=== PATIENT | male | born 1970 | race Caucasian/White ===

== ENCOUNTER 2017-05-30 08:16 | Inpatient (IN) | payer SELFPAY ==
[2017-05-30 09:59] VITALS: BMI 31.3
--- NOTE | 2017-05-30 12:06 | HP ---
CIWA Score - CIWA Score Nausea/Vomitin Muscle Tremors: 4-Moderate,w/Arms Extend Anxiety: 3 Agitation: 0-Normal Activity Paroxysmal Sweats: 3 Orientation: 0-Oriented Tacttile Disturbances: 2-Mild Itch/Numbness/Burn Auditory Disturbances: 2-Mild Harshness/Frighten Visual Disturbances: 2-Mild Sensitivity Headache: 1-Very Mild CIWA-Ar Total Score: 22 Admission ROS BHS - HPI Chief Complaint: "I want to stay away from Alcohol." Patient here to Detox from Alcohol. Allergies/Adverse Reactions: Allergies Allergy/AdvReac Type Severity Reaction Status Date / Time No Known Allergies Allergy Verified 05/30/17 10:20 History of Present Illness: Pt. is a 46 YO male here to Detox from Alcohol. This is pt.'s first Detox admission at [facility]. Patient has had several previous Detox admissions at [facility]. Longest period of sobriety: approx. 1.5 years (2015 - 2016). Exam Limitations: No Limitations - Ebola screening Have you traveled outside of the country in the last 21 days: No Have you had contact with anyone from an Ebola affected area: No Have you been sick,other than usual withdrawal symptoms: No Do you have a fever: No - Review of Systems Constitutional: Chills, Diaphoresis, Fever, Loss of Appetite, Malaise, Night Sweats, Changes in sleep EENT: reports: Dental Problems (Needs to have 1 tooth replaced.) Respiratory: reports: Productive cough Cardiac: reports: Palpitations GI: reports: Diarrhea, Nausea, Poor Appetite, Vomiting, Indigestion, Abdominal cramping : reports: No Symptoms Reported Musculoskeletal: reports: No Symptoms Reported Integumentary: reports: No Symptoms Reported Neuro: reports: Headache, Numbness (Occasional in bilateral Lower Legs.), Tingling (Occasional in bilateral Lower Legs.), Tremors Endocrine: reports: No Symptoms Reported Hematology: reports: No Symptoms Reported Psychiatric: reports: Judgement Intact, Mood/Affect Appropiate, Orientated x3, Anxious Other Systems: Reviewed and Negative Patient History - Patient Medical History Hx Anemia: No Hx Asthma: No Hx Chronic Obstructive Pulmonary Disease (COPD): No Hx Cancer: No Hx Cardiac Disorders: No Hx Congestive Heart Failure: No Hx Hypertension: No Hx Hypercholesterolemia: No Hx Pacemaker: No HX Cerebrovascular Accident: No Hx Seizures: No Hx Dementia: No Hx Diabetes: No (Possibly Borderline in past, according to MD, uncertain currently.) Hx Gastrointestinal Disorders: Yes (stomach ulcer/acid reflux) Hx Liver Disease: No Hx Genitourinary Disorders: No Hx Sexually Transmitted Disorders: No Hx Renal Disease (ESRD): No Hx Thyroid Disease: No Hx Human Immunodeficiency Virus (HIV): No (Negative History; Cannot remember when last tested.) Hx Hepatitis C: No (Cannot Remember if ever tested in past.) Hx Depression: No Hx Suicide Attempt: No (PATIENT DENIES CURRENT SI / HI.) Hx Bipolar Disorder: No Hx Schizophrenia: No Other Medical History: DENIES. - Patient Surgical History Past Surgical History: No Hx Neurologic Surgery: No Hx Cataract Extraction: No Hx Cardiac Surgery: No Hx Lung Surgery: No Hx Breast Surgery: No Hx Breast Biopsy: No Hx Abdominal Surgery: No Hx Appendectomy: No Hx Cholecystectomy: No Hx Genitourinary Surgery: No Hx Section: No Hx Orthopedic Surgery: No Anesthesia Reaction: No - PPD History Previous Implant?: Yes Documented Results: Positive w/o proof Implanted On Prior R Admission?: No PPD to be Administered?: No - Reproductive History Patient is a Female of Child Bearing Age (11 -55 yrs old): No (PATIENT IS MALE.) - Smoking Cessation Smoking history: Former smoker Have you smoked in the past 12 months: Yes Aproximately how many cigarettes per day: 2 If you are a former smoker, when did you quit?: in 10/2016 Cigars Per Day: 0 Hx Chewing Tobacco Use: No Initiated information on smoking cessation: Yes 'Breaking Loose' booklet given: 05/30/17 (GIVEN ON UNIT.) - Substance & Tx. History Hx Alcohol Use: Yes Hx Substance Use: Yes Substance Use Type: Alcohol Hx Substance Use Treatment: Yes (Previous Detox admissions at [facility].) - Substances Abused Alcohol-whisky Route: Oral Frequency: Daily Amount used: 4 pts. Age of first use: 15 Date of Last Use: 05/29/17 Family Disease History - Family Disease History Family Disease History: Diabetes: Grandparent ([place].), Heart Disease: Grandparent Admission Physical Exam BHS - Vital Signs Vital Signs: Vital Signs - 24 hr 05/30/17 09:55 Temperature 99.0 F Pulse Rate 111 H Respiratory 18 Rate Blood Pressure 138/94 - Physical General Appearance: Yes: Nourished, Appropriately Dressed, Mild Distress, Tremorous, Anxious HEENTM: Yes: Hearing grossly Normal, Normocephalic, Normal Voice, DORA, Pharynx Normal Respiratory: Yes: Chest Non-Tender, Lungs Clear, No Respiratory Distress, No Accessory Muscle Use Neck: Yes: No masses,lesions,Nodules, Supple, Trachea in good position Breast: Yes: Breast Exam Deferred Cardiology: Yes: Regular Rhythm, Regular Rate, S1, S2 Abdominal: Yes: Normal Bowel Sounds, Non Tender, Soft, Protuberent Genitourinary: Yes: Within Normal Limits Back: Yes: Within Normal Limits Musculoskeletal: Yes: full range of Motion, Gait Steady Extremities: Yes: Normal Range of Motion, Non-Tender, Tremors Neurological: Yes: Fully Oriented, Alert, Normal Mood/Affect, Normal Response Integumentary: Yes: Normal Color, Dry, Warm Lymphatic: Yes: Within Normal Limits - Diagnostic (1) Alcohol dependence with uncomplicated withdrawal Current Visit: Yes Status: Acute (2) History of anxiety Current Visit: Yes Status: Chronic Cleared for Admission [facility] - Detox or Rehab [facility] Level of Care: Medically Managed Detox Regimen/Protocol: Librium [facility] Breath Alcohol Content Breath Alcohol Content: 0 Urine Drug Screen - Results Drug Screen Negative: No Urine Drug Screen Results: BZO-Benzodiazepines
[2017-05-30] MEDS ORDERED: ACETAMINOPHEN 325 MG TABLET (FP) PO PRN (12:37)
[2017-05-30] MEDS ORDERED: IBUPROFEN 400 MG TABLET (FP) PO PRN (12:37)
[2017-05-30] MEDS ORDERED: chlordiazePOXIDE HCL 25 MG CAPSULE PO PRN (12:37)
[2017-05-30] MEDS ORDERED: MENTHOL/PHENOL 1 EACH UD MM PRN (12:37)
[2017-05-30] MEDS ORDERED: diphenhydrAMINE HCL 50 MG CAPSULE PO PRN (12:37)
[2017-05-30] MEDS ORDERED: MAGNESIUM HYDROX 2400MG/30ML ORAL SUSPENSION 30 ML CUP PO PRN (12:37)
[2017-05-30] MEDS ORDERED: MAGNESIUM CITRATE 300 ML BOTTLE PO PRN (12:37)
[2017-05-30] MEDS ORDERED: hydrOXYzine PAMOATE 50 MG CAPSULE (FP) PO PRN (12:37)
[2017-05-30] MEDS ORDERED: P-EPHED 60MG/TRIPROLIDI 2.5MG TABLET PO PRN (12:37)
[2017-05-30] MEDS ORDERED: LOPERAMIDE HCL 2 MG CAPSULE PO PRN (12:37)
[2017-05-30] MEDS ORDERED: ONDANSETRON *ODT* 4 MG TABLET SL PRN (12:43)
[2017-05-30] MEDS ORDERED: chlordiazePOXIDE HCL 25 MG CAPSULE PO ONE (12:43)
[2017-05-30] MEDS: MAG HYDROX/AL HYDROX/SIMETH 30 ML UNIT-DOSE CUP PO PRN (16:41)
[2017-05-30 16:45] LABS: URINE APPEARANCE CLEAR; URINE BILIRUBIN NEGATIVE (NEGATIVE); URINE BLOOD NEGATIVE (NEGATIVE); URINE COLOR AMBER; URINE GLUCOSE (UA) 1+ (NEGATIVE); URINE KETONE 1+ (NEGATIVE); URINE LEUK ESTERASE NEGATIVE (NEGATIVE); URINE NITRITE NEGATIVE (NEGATIVE); URINE PROTEIN 1+ (NEGATIVE); URINE UROBILINOGEN 4.0 E.U/dl mg/dL (0.2-1.0)
--- NOTE | 2017-05-30 17:01 | EKG ---
Test Reason : Blood Pressure : / mmHG Vent. Rate : 105 BPM Atrial Rate : 105 BPM P-R Int : 132 ms QRS Dur : 092 ms QT Int : 328 ms P-R-T Axes : 060 -11 004 degrees QTc Int : 433 ms SINUS TACHYCARDIA OTHERWISE NORMAL ECG NO PREVIOUS ECGS AVAILABLE [facility] Confirmed by MARCY MOROCHO MD ([id number] on 05/30/2017 5:01:18 PM Referred By: Antolin Kim Confirmed By:MARCY MOROCHO MD
[2017-05-30] MEDS: chlordiazePOXIDE HCL 25 MG CAPSULE PO SCH ×2 (17:09→22:31)
--- NOTE | 2017-05-30 17:44 | CONSULT ---
[facility] Psychiatric Consult - Data Date of interview: 05/30/17 Admission source: [facility] Identifying data: First admission to [facility] for this 46 y/o [place]-born male seeking detox treatment on for alcohol dependence.Patient is single ,a father of one,domiciled and employed. Substance Abuse History: Patient admits to abusing alcohol since age 15 ( 2-4 pints of scotch daily + 2-15 beers on a daily basis).Smokes 2-3 cigarettes/day. Medical History: GERD. Psychiatric History: Patient denies. Physical/Sexual Abuse/Trauma History: Patient denies. Additional Comment: Urine Drug Screen Results: positive for benzodiazepines. Mental Status Exam - Mental Status Exam Alert and Oriented to: Time, Place, Person Cognitive Function: Good Patient Appearance: Well Groomed Mood: Anxious, Apprehensive Affect: Mood Congruent Patient Behavior: Fatigued, Appropriate, Cooperative Speech Pattern: Clear, Appropriate (in maltese.Speaks little estonian.) Voice Loudness: Normal Thought Process: Intact, Goal Oriented Thought Disorder: Not Present Hallucinations: Denies Suicidal Ideation: Denies Homicidal Ideation: Denies Insight/Judgement: Poor Sleep: Poorly, Difficulty falling asleep (requests ambien) Appetite: Good Muscle strength/Tone: Normal Gait/Station: Normal Psychiatric Findings - Problem List ([place] 1, 2,3) (1) Alcohol dependence with uncomplicated withdrawal Current Visit: Yes Status: Acute (2) Insomnia Current Visit: Yes Status: Acute - Initial Treatment Plan Initial Treatment Plan: Psychoeducation initiated.Detoxification in progress.[facility] report reviewed.Ambien 10 mg po hs.Orderd.Patient is made aware of potential for parasomnias.He agrees to follow this plan of care.Observation.
[2017-05-30 18:51] LABS: HIV 1 & 2 AB NEGATIVE; HIV 1 AGp24 NEGATIVE
[2017-05-30 19:44] LABS: GRANULAR CASTS 3 /lpf; URINE MUCUS RARE; URINE RBC 2 /hpf (0-3); URINE WBC 3 /hpf (3-5)
[2017-05-30] MEDS: THIAMINE HCL 100 MG TABLET (FP) PO SCH (22:31)
[2017-05-30] MEDS: ZOLPIDEM TARTRATE 10 MG TABLET (PARK CARE ONLY) PO PRN (22:31)
[2017-05-31] MEDS: chlordiazePOXIDE HCL 25 MG CAPSULE PO SCH ×4 (05:15→22:31)
[2017-05-31] MEDS: guaiFENesin/D-METHORPHAN HB 10 ML UNIT-DOSE CUPS PO PRN (05:16)
[2017-05-31] MEDS: PRENATAL VITAMINS W/ FOLIC ACID TABLET (FP) PO SCH (10:16)
[2017-05-31] MEDS: PANTOPRAZOLE 40 MG TABLET (FP) PO SCH (10:17)
[2017-05-31 10:27] LABS: MCH 32.1 pg (25.7-33.7); MCHC 34.3 g/dl (32.0-35.9); MEAN CELL VOLUME 93.5 fl (80-96); MEAN PLT VOLUME 8.7 fl (7.5-11.1); PLATELET COUNT 158 K/MM3 (134-434); RDW 14.4 % (11.9-15.9); WHITE BLOOD COUNT 6.7 K/mm3 (4.0-10.0)
[2017-05-31 10:31] LABS: CALCIUM 9.3 mg/dL (8.5-10.1)
[2017-05-31 10:37] LABS: ALBUMIN 3.9 g/dl (3.4-5.0); ALK PHOS 185 U/L (45-117); ANION GAP 11 (8-16); BILIRUBIN,TOTAL 2.3 mg/dL (0.2-1.0); CO2 26 mmol/L (21-32); GLUCOSE,RANDOM 172 mg/dL (74-106); SGOT/AST 198 U/L (15-37); SGPT/ALT 180 U/L (12-78); TOT PROT 7.9 g/dl (6.4-8.2); URIC ACID 7.9 mg/dL (2.6-7.2)
--- NOTE | 2017-05-31 11:13 | EKG ---
Test Reason : Blood Pressure : / mmHG Vent. Rate : 100 BPM Atrial Rate : 100 BPM P-R Int : 134 ms QRS Dur : 094 ms QT Int : 346 ms P-R-T Axes : 066 -10 013 degrees QTc Int : 446 ms NORMAL SINUS RHYTHM NORMAL ECG WHEN COMPARED WITH ECG OF 30-MAY-2017 13:44, NO SIGNIFICANT CHANGE WAS FOUND Confirmed by DARLENE ELLIS MD ([id number]) on 05/31/2017 11:12:50 AM Referred By: Antolin Kim Confirmed By:DARLENE ELLIS MD
--- NOTE | 2017-05-31 11:38 | PN ---
S CIWA - CIWA Score Nausea/Vomitin Muscle Tremors: None Anxiety: 4-Mod. Anxious/Guarded Agitation: 1-Slight > Activity Paroxysmal Sweats: 3 Orientation: 0-Oriented Tacttile Disturbances: 3-Moderate Itch/Numb/Burn Auditory Disturbances: 1-Very Mild Visual Disturbances: 2-Mild Sensitivity Headache: 3-Moderate CIWA-Ar Total Score: 22 BHS Progress Note (SOAP) Subjective: Sweating, Vomiting, Diarrhea, Anxious, Interrupted sleep, H/A. Objective: PT. A & O X 3, OBSERVED AMBULATING ON UNIT. NO ACUTE DISTRESS. PATIENT REPORTS HISTORY OF GOUT (HAS NO TAKEN ANY MEDICATION FOR IT FOR SOME TIME NOW) AND THAT HE IS BEGINNING TO FEEL DISCOMFORT IN LEFT FOOT. 05/31/17 11:34 Vital Signs Temperature 96.8 F L 05/31/17 09:54 Pulse Rate 119 H 05/31/17 09:54 Respiratory Rate 18 05/31/17 09:54 Blood Pressure 139/94 05/31/17 09:54 O2 Sat by Pulse Oximetry (%) Laboratory Tests 05/30/17 05/30/17 05/30/17 12:10 13:20 14:48 WBC RBC Hgb Hct MCV MCH MCHC RDW Plt Count MPV Sodium Potassium Chloride Carbon Dioxide Anion Gap BUN Creatinine Creat Clearance w eGFR POC Glucometer Random Glucose Uric Acid Calcium Total Bilirubin AST ALT Alkaline Phosphatase Total Protein Albumin Urine Color Kayla Urine Appearance Clear Urine pH 6.0 Ur Specific [place] 1.020 Urine Protein 1+ H Urine Glucose (UA) 1+ H Urine Ketones 1+ H Urine Blood Negative Urine Nitrite Negative Urine Bilirubin Negative Urine Urobilinogen 4.0 e.u/dl Ur Leukocyte Esterase Negative Urine RBC 2 Urine WBC 3 Ur Epithelial Cells Rare Granular Casts 3 Urine Mucus Rare Hepatitis C Antibody 0.2 HIV 1&2 Antibody Screen Negative HIV P24 Antigen Negative 05/31/17 05/31/17 05/31/17 05:15 06:00 06:00 WBC 6.7 RBC 5.11 Hgb 16.4 Hct 47.7 MCV 93.5 MCH 32.1 MCHC 34.3 RDW 14.4 Plt Count 158 MPV 8.7 Sodium 134 L Potassium 4.0 Chloride 97 L Carbon Dioxide 26 Anion Gap 11 BUN 12 Creatinine 1.0 Creat Clearance w eGFR > 60 POC Glucometer 156 Random Glucose 172 H Uric Acid 7.9 H Calcium 9.3 Total Bilirubin 2.3 H AST 198 H ALT 180 H Alkaline Phosphatase 185 H Total Protein 7.9 Albumin 3.9 Urine Color Urine Appearance Urine pH Ur Specific [place] Urine Protein Urine Glucose (UA) Urine Ketones Urine Blood Urine Nitrite Urine Bilirubin Urine Urobilinogen Ur Leukocyte Esterase Urine RBC Urine WBC Ur Epithelial Cells Granular Casts Urine Mucus Hepatitis C Antibody HIV 1&2 Antibody Screen HIV P24 Antigen LABS NOTED. 05/31/17 11:40 05/31/17 15:38 Assessment: 05/31/17 11:38 WITHDRAWAL SYMPTOMS. Plan: CONTINUE DETOX. URIC ACID ORDERED FOR HISTORY OF GOUT AND FOOT PAIN. PRN IBUPROFEN FOR FOOT PAIN. BGM BIDAC AND HGB A1C ORDERED FOR ELEVATED BGM ACBK EARLIER THIS AM. HEPATIC FUNCTION PANEL ON 06/02/2017 FOR ELEVATED ADMISSION LIVER ENZYME VALUES.
[2017-05-31] MEDS ORDERED: cloNIDine HCL 0.1 MG TABLET PO ONE (14:48)
[2017-05-31] MEDS ORDERED: COLCHICINE 0.6 MG TABLET (FP) PO ONE (15:25)
--- NOTE | 2017-05-31 15:39 | PN ---
S Progress Note Note: Uric Acid level (7.9) noted. Patient unable to recall name of Gout medication that he took in past. START Colchicine, 1.2 mg PO X 1 Now, then 0.6 mg PO daily starting tomorrow. Clonidine, 0.1 mg PO X 1 ordered for elevated BP and for detox symptoms. Ginette Wills DISCHARGE RN
[2017-05-31] MEDS: MAG HYDROX/AL HYDROX/SIMETH 30 ML UNIT-DOSE CUP PO PRN ×2 (15:44→22:34)
[2017-05-31] MEDS: THIAMINE HCL 100 MG TABLET (FP) PO SCH (22:31)
[2017-05-31] MEDS: ZOLPIDEM TARTRATE 10 MG TABLET (PARK CARE ONLY) PO PRN (22:31)
[2017-06-01] MEDS: chlordiazePOXIDE HCL 25 MG CAPSULE PO SCH ×2 (05:53→10:45)
[2017-06-01] MEDS: PRENATAL VITAMINS W/ FOLIC ACID TABLET (FP) PO SCH (10:44)
[2017-06-01] MEDS: COLCHICINE 0.6 MG TABLET (FP) PO SCH (10:44)
[2017-06-01] MEDS: PANTOPRAZOLE 40 MG TABLET (FP) PO SCH (10:44)
[2017-06-01] MEDS: TETRAHYDROZOLINE HCL 1 DROP DROPS OU PRN ×3 (12:00→22:36)
--- NOTE | 2017-06-01 12:35 | PN ---
S CIWA - CIWA Score Nausea/Vomitin Muscle Tremors: 3 Anxiety: 3 Agitation: 2 Paroxysmal Sweats: 3 Orientation: 0-Oriented Tacttile Disturbances: 2-Mild Itch/Numbness/Burn Auditory Disturbances: 0-None Visual Disturbances: 0-None Headache: 2-Mild CIWA-Ar Total Score: 17 [facility] Progress Note (SOAP) Subjective: Sweating, Diarrhea, Stomach Cramping, H/A, Body Aches, Tremors, Interrupted sleep. Objective: PT. A & O X 3, OBSERVED AMBULATING ON UNIT. NO ACUTE DISTRESS. PT. DENIES CHEST PAIN. 06/01/17 12:31 Vital Signs Temperature 99.1 F 06/01/17 09:18 Pulse Rate 104 H 06/01/17 09:18 Respiratory Rate 18 06/01/17 09:18 Blood Pressure 128/91 06/01/17 09:18 O2 Sat by Pulse Oximetry (%) Laboratory Tests 05/30/17 05/30/17 05/30/17 12:10 13:20 14:48 WBC RBC Hgb Hct MCV MCH MCHC RDW Plt Count MPV Sodium Potassium Chloride Carbon Dioxide Anion Gap BUN Creatinine Creat Clearance w eGFR POC Glucometer Random Glucose Hemoglobin A1c % Uric Acid Calcium Total Bilirubin AST ALT Alkaline Phosphatase Total Protein Albumin Urine Color Kayla Urine Appearance Clear Urine pH 6.0 Ur Specific [place] 1.020 Urine Protein 1+ H Urine Glucose (UA) 1+ H Urine Ketones 1+ H Urine Blood Negative Urine Nitrite Negative Urine Bilirubin Negative Urine Urobilinogen 4.0 e.u/dl Ur Leukocyte Esterase Negative Urine RBC 2 Urine WBC 3 Ur Epithelial Cells Rare Granular Casts 3 Urine Mucus Rare RPR Titer Hepatitis C Antibody 0.2 HIV 1&2 Antibody Screen Negative HIV P24 Antigen Negative 05/31/17 05/31/17 05/31/17 05:15 06:00 06:00 WBC 6.7 RBC 5.11 Hgb 16.4 Hct 47.7 MCV 93.5 MCH 32.1 MCHC 34.3 RDW 14.4 Plt Count 158 MPV 8.7 Sodium 134 L Potassium 4.0 Chloride 97 L Carbon Dioxide 26 Anion Gap 11 BUN 12 Creatinine 1.0 Creat Clearance w eGFR > 60 POC Glucometer 156 Random Glucose 172 H Hemoglobin A1c % Uric Acid 7.9 H Calcium 9.3 Total Bilirubin 2.3 H AST 198 H ALT 180 H Alkaline Phosphatase 185 H Total Protein 7.9 Albumin 3.9 Urine Color Urine Appearance Urine pH Ur Specific [place] Urine Protein Urine Glucose (UA) Urine Ketones Urine Blood Urine Nitrite Urine Bilirubin Urine Urobilinogen Ur Leukocyte Esterase Urine RBC Urine WBC Ur Epithelial Cells Granular Casts Urine Mucus RPR Titer Hepatitis C Antibody HIV 1&2 Antibody Screen HIV P24 Antigen 05/31/17 05/31/17 06/01/17 06:00 16:30 05:53 WBC RBC Hgb Hct MCV MCH MCHC RDW Plt Count MPV Sodium Potassium Chloride Carbon Dioxide Anion Gap BUN Creatinine Creat Clearance w eGFR POC Glucometer 179 169 Random Glucose Hemoglobin A1c % Uric Acid Calcium Total Bilirubin AST ALT Alkaline Phosphatase Total Protein Albumin Urine Color Urine Appearance Urine pH Ur Specific [place] Urine Protein Urine Glucose (UA) Urine Ketones Urine Blood Urine Nitrite Urine Bilirubin Urine Urobilinogen Ur Leukocyte Esterase Urine RBC Urine WBC Ur Epithelial Cells Granular Casts Urine Mucus RPR Titer Nonreactive Hepatitis C Antibody HIV 1&2 Antibody Screen HIV P24 Antigen 06/01/17 06/01/17 06:30 06:30 WBC RBC Hgb Hct MCV MCH MCHC RDW Plt Count MPV Sodium Potassium Chloride Carbon Dioxide Anion Gap BUN Creatinine Creat Clearance w eGFR POC Glucometer Random Glucose Hemoglobin A1c % 6.7 H Uric Acid 7.7 H Calcium Total Bilirubin AST ALT Alkaline Phosphatase Total Protein Albumin Urine Color Urine Appearance Urine pH Ur Specific [place] Urine Protein Urine Glucose (UA) Urine Ketones Urine Blood Urine Nitrite Urine Bilirubin Urine Urobilinogen Ur Leukocyte Esterase Urine RBC Urine WBC Ur Epithelial Cells Granular Casts Urine Mucus RPR Titer Hepatitis C Antibody HIV 1&2 Antibody Screen HIV P24 Antigen LABS NOTED. Assessment: 06/01/17 12:32 WITHDRAWAL SYMPTOMS. Plan: CONTINUE DETOX. START REGULAR INSULIN SLIDING SCALE DUE TO ELEVATED HGB A1C AND BGM'S.
[2017-06-01] MEDS: INSULIN SLIDING SCALE (NOVOLOG) 1 VIAL SQ SCH (16:36)
[2017-06-01] MEDS: chlordiazePOXIDE 5 MG CAPSULE PO SCH ×2 (17:16→22:35)
[2017-06-01] MEDS: ZOLPIDEM TARTRATE 10 MG TABLET (PARK CARE ONLY) PO PRN (22:35)
[2017-06-01] MEDS: THIAMINE HCL 100 MG TABLET (FP) PO SCH (22:35)
[2017-06-02] MEDS: chlordiazePOXIDE 5 MG CAPSULE PO SCH ×2 (05:53→10:46)
[2017-06-02] MEDS: TETRAHYDROZOLINE HCL 1 DROP DROPS OU PRN ×4 (05:54→22:31)
[2017-06-02] MEDS: INSULIN SLIDING SCALE (NOVOLOG) 1 VIAL SQ SCH (08:16)
[2017-06-02] MEDS: PANTOPRAZOLE 40 MG TABLET (FP) PO SCH (10:46)
[2017-06-02] MEDS: COLCHICINE 0.6 MG TABLET (FP) PO SCH (10:46)
[2017-06-02] MEDS: PRENATAL VITAMINS W/ FOLIC ACID TABLET (FP) PO SCH (10:46)
[2017-06-02 10:58] LABS: ALBUMIN 3.7 g/dl (3.4-5.0); BILIRUBIN,DIRECT 0.4 mg/dL (0.0-0.2); BILIRUBIN,TOTAL 0.9 mg/dL (0.2-1.0); TOT PROT 7.5 g/dl (6.4-8.2)
[2017-06-02] MEDS: MAG HYDROX/AL HYDROX/SIMETH 30 ML UNIT-DOSE CUP PO PRN (11:38)
--- NOTE | 2017-06-02 13:15 | PN ---
BHS Progress Note (SOAP) Subjective: Stomach Cramping, Sweating, H/A. Objective: PT. A & O X 3, OBSERVED AMBULATING ON UNIT. NO ACUTE DISTRESS. PT. DENIES CHEST PAIN. 06/02/17 13:12 Vital Signs Temperature 98.9 F 06/02/17 09:18 Pulse Rate 80 06/02/17 09:18 Respiratory Rate 18 06/02/17 09:18 Blood Pressure 133/91 06/02/17 09:18 O2 Sat by Pulse Oximetry (%) Laboratory Tests 05/30/17 05/30/17 05/30/17 12:10 13:20 14:48 WBC RBC Hgb Hct MCV MCH MCHC RDW Plt Count MPV Sodium Potassium Chloride Carbon Dioxide Anion Gap BUN Creatinine Creat Clearance w eGFR POC Glucometer Random Glucose Hemoglobin A1c % Uric Acid Calcium Total Bilirubin Direct Bilirubin AST ALT Alkaline Phosphatase Total Protein Albumin Urine Color Kayla Urine Appearance Clear Urine pH 6.0 Ur Specific [place] 1.020 Urine Protein 1+ H Urine Glucose (UA) 1+ H Urine Ketones 1+ H Urine Blood Negative Urine Nitrite Negative Urine Bilirubin Negative Urine Urobilinogen 4.0 e.u/dl Ur Leukocyte Esterase Negative Urine RBC 2 Urine WBC 3 Ur Epithelial Cells Rare Granular Casts 3 Urine Mucus Rare RPR Titer Hepatitis C Antibody 0.2 HIV 1&2 Antibody Screen Negative HIV P24 Antigen Negative 05/31/17 05/31/17 05/31/17 05:15 06:00 06:00 WBC 6.7 RBC 5.11 Hgb 16.4 Hct 47.7 MCV 93.5 MCH 32.1 MCHC 34.3 RDW 14.4 Plt Count 158 MPV 8.7 Sodium 134 L Potassium 4.0 Chloride 97 L Carbon Dioxide 26 Anion Gap 11 BUN 12 Creatinine 1.0 Creat Clearance w eGFR > 60 POC Glucometer 156 Random Glucose 172 H Hemoglobin A1c % Uric Acid 7.9 H Calcium 9.3 Total Bilirubin 2.3 H Direct Bilirubin AST 198 H ALT 180 H Alkaline Phosphatase 185 H Total Protein 7.9 Albumin 3.9 Urine Color Urine Appearance Urine pH Ur Specific [place] Urine Protein Urine Glucose (UA) Urine Ketones Urine Blood Urine Nitrite Urine Bilirubin Urine Urobilinogen Ur Leukocyte Esterase Urine RBC Urine WBC Ur Epithelial Cells Granular Casts Urine Mucus RPR Titer Hepatitis C Antibody HIV 1&2 Antibody Screen HIV P24 Antigen 05/31/17 05/31/1717 06:00 16:30 05:53 WBC RBC Hgb Hct MCV MCH MCHC RDW Plt Count MPV Sodium Potassium Chloride Carbon Dioxide Anion Gap BUN Creatinine Creat Clearance w eGFR POC Glucometer 179 169 Random Glucose Hemoglobin A1c % Uric Acid Calcium Total Bilirubin Direct Bilirubin AST ALT Alkaline Phosphatase Total Protein Albumin Urine Color Urine Appearance Urine pH Ur Specific [place] Urine Protein Urine Glucose (UA) Urine Ketones Urine Blood Urine Nitrite Urine Bilirubin Urine Urobilinogen Ur Leukocyte Esterase Urine RBC Urine WBC Ur Epithelial Cells Granular Casts Urine Mucus RPR Titer Nonreactive Hepatitis C Antibody HIV 1&2 Antibody Screen HIV P24 Antigen 06/01/17 06/01/17 06/01/17 06:30 06:30 16:14 WBC RBC Hgb Hct MCV MCH MCHC RDW Plt Count MPV Sodium Potassium Chloride Carbon Dioxide Anion Gap BUN Creatinine Creat Clearance w eGFR POC Glucometer 150 Random Glucose Hemoglobin A1c % 6.7 H Uric Acid 7.7 H Calcium Total Bilirubin Direct Bilirubin AST ALT Alkaline Phosphatase Total Protein Albumin Urine Color Urine Appearance Urine pH Ur Specific [place] Urine Protein Urine Glucose (UA) Urine Ketones Urine Blood Urine Nitrite Urine Bilirubin Urine Urobilinogen Ur Leukocyte Esterase Urine RBC Urine WBC Ur Epithelial Cells Granular Casts Urine Mucus RPR Titer Hepatitis C Antibody HIV 1&2 Antibody Screen HIV P24 Antigen 06/02/17 06/02/17 05:52 06:30 WBC RBC Hgb Hct MCV MCH MCHC RDW Plt Count MPV Sodium Potassium Chloride Carbon Dioxide Anion Gap BUN Creatinine Creat Clearance w eGFR POC Glucometer 161 Random Glucose Hemoglobin A1c % Uric Acid Calcium Total Bilirubin 0.9 D Direct Bilirubin 0.4 H AST 115 H D ALT 133 H D Alkaline Phosphatase 159 H Total Protein 7.5 Albumin 3.7 Urine Color Urine Appearance Urine pH Ur Specific [place] Urine Protein Urine Glucose (UA) Urine Ketones Urine Blood Urine Nitrite Urine Bilirubin Urine Urobilinogen Ur Leukocyte Esterase Urine RBC Urine WBC Ur Epithelial Cells Granular Casts Urine Mucus RPR Titer Hepatitis C Antibody HIV 1&2 Antibody Screen HIV P24 Antigen LABS NOTED. RESULTS OF HEPATIC FUNCTION PANEL DRAWN EARLIER TODAY NOTED. 06/02/17 13:12 06/02/17 13:14 Assessment: 06/02/17 13:13 WITHDRAWAL SYMPTOMS. Plan: CONTINUE DETOX.
[2017-06-02] MEDS: chlordiazePOXIDE HCL 10 MG CAPSULE PO SCH ×2 (17:30→22:31)
[2017-06-02] MEDS ORDERED: ZOLPIDEM TARTRATE 10 MG TABLET (PARK CARE ONLY) PO PRN (18:24)
[2017-06-02] MEDS: THIAMINE HCL 100 MG TABLET (FP) PO SCH (22:31)
[2017-06-02] MEDS: guaiFENesin/D-METHORPHAN HB 10 ML UNIT-DOSE CUPS PO PRN (22:52)
[2017-06-03] MEDS: chlordiazePOXIDE HCL 10 MG CAPSULE PO SCH (05:12)
[2017-06-03] MEDS: guaiFENesin/D-METHORPHAN HB 10 ML UNIT-DOSE CUPS PO PRN (05:34)
[2017-06-03] MEDS: TETRAHYDROZOLINE HCL 1 DROP DROPS OU PRN (05:34)
[2017-06-03 06:23] VITALS: BP 143/93; PULSE 95; TEMP 96.7
--- NOTE | 2017-06-03 22:16 | DS ---
[facility] Detox Discharge Summary Admission Date: 05/30/17 Discharge Date: 06/03/17 - History Present History: Alcohol Dependence Additional Comments: PATIENT ELECTING TO GO HOME. WILL RETURN TO PREVIOUS OUTPATIENT AA SUPPORT GROUP. PATIENT REPORTS THAT HE CURRENTLY HAS A PRIMARY CARE MEDICAL PROVIDER. PATIENT ADVISED TO FOLLOW-UP WITH CUSTOMER SERVICE REPRESENTATIVE AFTER DISCHARGE FROM DETOX FOR MEDICAL ASSESSMENT AND FOR HISTORY OF GOUT, ELEVATED BGM READINGS, AND FOR ELEVATED HGB A1C AND LIVER ENZYME LEVELS AHILE ADMITTED FOR DETOX. Pertinent Past History: Borderline DM, Gout, Acid Reflux Of Stomach, Insomnia. - Physical Exam Results Vital Signs: Vital Signs Temperature 96.7 F L 06/03/17 06:22 Pulse Rate 95 H 06/03/17 06:22 Respiratory Rate 18 06/03/17 06:22 Blood Pressure 143/93 06/03/17 06:22 O2 Sat by Pulse Oximetry (%) Pertinent Admission Physical Exam Findings: WITHDRAWAL SYMPTOMS. Laboratory Tests 05/30/17 05/30/17 05/30/17 12:10 13:20 14:48 WBC RBC Hgb Hct MCV MCH MCHC RDW Plt Count MPV Sodium Potassium Chloride Carbon Dioxide Anion Gap BUN Creatinine Creat Clearance w eGFR POC Glucometer Random Glucose Hemoglobin A1c % Uric Acid Calcium Total Bilirubin Direct Bilirubin AST ALT Alkaline Phosphatase Total Protein Albumin Urine Color Kayla Urine Appearance Clear Urine pH 6.0 Ur Specific [place] 1.020 Urine Protein 1+ H Urine Glucose (UA) 1+ H Urine Ketones 1+ H Urine Blood Negative Urine Nitrite Negative Urine Bilirubin Negative Urine Urobilinogen 4.0 e.u/dl Ur Leukocyte Esterase Negative Urine RBC 2 Urine WBC 3 Ur Epithelial Cells Rare Granular Casts 3 Urine Mucus Rare RPR Titer Hepatitis C Antibody 0.2 HIV 1&2 Antibody Screen Negative HIV P24 Antigen Negative 05/31/17 05/31/17 05/31/17 05:15 06:00 06:00 WBC 6.7 RBC 5.11 Hgb 16.4 Hct 47.7 MCV 93.5 MCH 32.1 MCHC 34.3 RDW 14.4 Plt Count 158 MPV 8.7 Sodium 134 L Potassium 4.0 Chloride 97 L Carbon Dioxide 26 Anion Gap 11 BUN 12 Creatinine 1.0 Creat Clearance w eGFR > 60 POC Glucometer 156 Random Glucose 172 H Hemoglobin A1c % Uric Acid 7.9 H Calcium 9.3 Total Bilirubin 2.3 H Direct Bilirubin AST 198 H ALT 180 H Alkaline Phosphatase 185 H Total Protein 7.9 Albumin 3.9 Urine Color Urine Appearance Urine pH Ur Specific [place] Urine Protein Urine Glucose (UA) Urine Ketones Urine Blood Urine Nitrite Urine Bilirubin Urine Urobilinogen Ur Leukocyte Esterase Urine RBC Urine WBC Ur Epithelial Cells Granular Casts Urine Mucus RPR Titer Hepatitis C Antibody HIV 1&2 Antibody Screen HIV P24 Antigen 05/31/17 05/31/17 06/01/17 06:00 16:30 05:53 WBC RBC Hgb Hct MCV MCH MCHC RDW Plt Count MPV Sodium Potassium Chloride Carbon Dioxide Anion Gap BUN Creatinine Creat Clearance w eGFR POC Glucometer 179 169 Random Glucose Hemoglobin A1c % Uric Acid Calcium Total Bilirubin Direct Bilirubin AST ALT Alkaline Phosphatase Total Protein Albumin Urine Color Urine Appearance Urine pH Ur Specific [place] Urine Protein Urine Glucose (UA) Urine Ketones Urine Blood Urine Nitrite Urine Bilirubin Urine Urobilinogen Ur Leukocyte Esterase Urine RBC Urine WBC Ur Epithelial Cells Granular Casts Urine Mucus RPR Titer Nonreactive Hepatitis C Antibody HIV 1&2 Antibody Screen HIV P24 Antigen 06/01/17 06/01/17 06/01/17 06:30 06:30 16:14 WBC RBC Hgb Hct MCV MCH MCHC RDW Plt Count MPV Sodium Potassium Chloride Carbon Dioxide Anion Gap BUN Creatinine Creat Clearance w eGFR POC Glucometer 150 Random Glucose Hemoglobin A1c % 6.7 H Uric Acid 7.7 H Calcium Total Bilirubin Direct Bilirubin AST ALT Alkaline Phosphatase Total Protein Albumin Urine Color Urine Appearance Urine pH Ur Specific [place] Urine Protein Urine Glucose (UA) Urine Ketones Urine Blood Urine Nitrite Urine Bilirubin Urine Urobilinogen Ur Leukocyte Esterase Urine RBC Urine WBC Ur Epithelial Cells Granular Casts Urine Mucus RPR Titer Hepatitis C Antibody HIV 1&2 Antibody Screen HIV P24 Antigen 06/02/17 06/02/17 06/02/17 05:52 06:30 16:21 WBC RBC Hgb Hct MCV MCH MCHC RDW Plt Count MPV Sodium Potassium Chloride Carbon Dioxide Anion Gap BUN Creatinine Creat Clearance w eGFR POC Glucometer 161 160 Random Glucose Hemoglobin A1c % Uric Acid Calcium Total Bilirubin 0.9 D Direct Bilirubin 0.4 H AST 115 H D ALT 133 H D Alkaline Phosphatase 159 H Total Protein 7.5 Albumin 3.7 Urine Color Urine Appearance Urine pH Ur Specific [place] Urine Protein Urine Glucose (UA) Urine Ketones Urine Blood Urine Nitrite Urine Bilirubin Urine Urobilinogen Ur Leukocyte Esterase Urine RBC Urine WBC Ur Epithelial Cells Granular Casts Urine Mucus RPR Titer Hepatitis C Antibody HIV 1&2 Antibody Screen HIV P24 Antigen LABS NOTED. - Treatment Hospital Course: Detox Protocol Followed, Detoxed Safely, Responded well, Discharged Condition Good Patient has Accepted a Rehab Referral to: PATIENT GOING HOME AND WILL RETURN TO PREVIOUS OUTPATIENT SUPPORT GROUP. - Medication Discharge Medications: Ambulatory Orders Famotidine [Pepcid -] 20 mg PO HS 05/30/17 Folic Acid - 1 mg PO DAILY 05/30/17 Metoclopramide HCl [Reglan -] 10 mg PO Q8H PRN 05/30/17 Thiamine HCl [Vitamin B1] 100 mg PO DAILY 05/30/17 - Diagnosis (1) Alcohol dependence with uncomplicated withdrawal Status: Acute (2) History of anxiety Status: Chronic (3) Insomnia Status: Acute Qualifiers: Insomnia type: unspecified Qualified Code(s): G47.00 - Insomnia, unspecified - AMA Did Patient Leave Against Medical Advice: No
== END 2017-06-03 08:55 | disposition home or self-care (01) | DRG 775 ==
LOC: YASAS 08:16 → Y3N 11:20
PROVIDERS: ADMIT Internal Medicine Addiction Medicine; ATTEND Internal Medicine Addiction Medicine
PROC: HZ2ZZZZ Detoxification Services for Substance Abuse Treatment (ICD-10-PCS; principal; 2017-06-03)
DX: F10.230 Alcohol dependence with withdrawal, uncomplicated (principal); F41.9 Anxiety disorder, unspecified; G47.00 Insomnia, unspecified
CPT/HCPCS: 36415; 71020-TC; 80053; 80076; 81003; 81015; 83036; 84550; 85027; 86593; 86803; 87389; 93005; 93010

== ENCOUNTER 2018-07-06 09:14 | Inpatient (IN) | payer SELFPAY ==
[2018-07-06 10:06] VITALS: BMI 31.0
--- NOTE | 2018-07-06 14:42 | HP ---
Admission [facility] Allergies/Adverse Reactions: Allergies Allergy/AdvReac Type Severity Reaction Status Date / Time No Known Allergies Allergy Verified 07/06/18 11:12 - Ebola screening Have you been sick,other than usual withdrawal symptoms: No Patient History - Patient Medical History Hx Anemia: No Hx Asthma: No Hx Chronic Obstructive Pulmonary Disease (COPD): No Hx Cancer: No Hx Cardiac Disorders: No Hx Congestive Heart Failure: No Hx Hypertension: No Hx Hypercholesterolemia: No Hx Pacemaker: No HX Cerebrovascular Accident: No Hx Seizures: No Hx Dementia: No Hx Diabetes: No Hx Gastrointestinal Disorders: Yes (acid reflux.) Hx Liver Disease: No Hx Genitourinary Disorders: No Hx Sexually Transmitted Disorders: No Hx Renal Disease (ESRD): No Hx Thyroid Disease: No Hx Human Immunodeficiency Virus (HIV): No (Negative History; Cannot remember when last tested.) Hx Hepatitis C: No (Cannot Remember if ever tested in past.) Hx Depression: No Hx Suicide Attempt: No Hx Bipolar Disorder: No Hx Schizophrenia: No - Patient Surgical History Past Surgical History: No Hx Neurologic Surgery: No Hx Cataract Extraction: No Hx Cardiac Surgery: No Hx Lung Surgery: No Hx Breast Surgery: No Hx Breast Biopsy: No Hx Abdominal Surgery: No Hx Appendectomy: No Hx Cholecystectomy: No Hx Genitourinary Surgery: No Hx Section: No Hx Orthopedic Surgery: No Anesthesia Reaction: No - PPD History Previous Implant?: Yes Documented Results: Positive w/o proof Implanted On Prior R Admission?: No Results: CXR chapis 05/31/17 - Smoking Cessation Smoking history: Current some day smoker Have you smoked in the past 12 months: Yes Aproximately how many cigarettes per day: 2 If you are a former smoker, when did you quit?: in 10/2016 Cigars Per Day: 0 Hx Chewing Tobacco Use: No Initiated information on smoking cessation: Yes - Substances Abused Alcohol Route: Oral Frequency: Daily Amount used: 10 beers Age of first use: 17 Date of Last Use: 07/06/18 Family Disease History - Family Disease History Family Disease History: Diabetes: Grandparent ([place].), Heart Disease: Grandparent Admission Physical Exam S - Vital Signs Vital Signs: Vital Signs - 24 hr 07/06/18 10:01 Temperature 97.5 F L Pulse Rate 86 Respiratory 19 Rate Blood Pressure 146/92 BHS Breath Alcohol Content Breath Alcohol Content: 0.204 Urine Drug Screen - Results Drug Screen Negative: Yes
--- NOTE | 2018-07-06 14:47 | HP ---
CIWA Score - CIWA Score Nausea/Vomitin Muscle Tremors: 3 Anxiety: 3 Agitation: 3 Paroxysmal Sweats: 3 Orientation: 0-Oriented Tacttile Disturbances: 0-None Auditory Disturbances: 0-None Visual Disturbances: 1-Very Mild Sensitivity Headache: 0-None Present CIWA-Ar Total Score: 18 Admission ROS BHS - HPI Chief Complaint: alcohol withdrawal symptoms Allergies/Adverse Reactions: Allergies Allergy/AdvReac Type Severity Reaction Status Date / Time No Known Allergies Allergy Verified 07/06/18 11:12 History of Present Illness: 47 yo male with alcohol dependence is here for alcohol detox and withdrawal symptoms. PMHX: DM II ( no meeds), GERD, anxiety and insomnia. Denies suicidal / homicidal ideation or hx of suicide attempts. Denies hx of seizures or blackouts. Last detox [facility] 02/20/18 -02/24/18. Reports longest period of sobriety three months. Exam Limitations: No Limitations - Ebola screening Have you been sick,other than usual withdrawal symptoms: No - Review of Systems Constitutional: Chills, Diaphoresis, Loss of Appetite, Changes in sleep EENT: reports: Other (bilateral dry eyes) Respiratory: reports: No Symptoms reported Cardiac: reports: Lightheadedness GI: reports: Diarrhea, Nausea, Poor Appetite, Poor Fluid Intake, Vomiting, Indigestion : reports: No Symptoms Reported Musculoskeletal: reports: No Symptoms Reported Integumentary: reports: No Symptoms Reported Neuro: reports: No Symptoms reported Endocrine: reports: Increased Thirst Hematology: reports: No Symptoms Reported Psychiatric: reports: Orientated x3, Anxious Other Systems: Reviewed and Negative Patient History - Patient Medical History Hx Anemia: No Hx Asthma: No Hx Chronic Obstructive Pulmonary Disease (COPD): No Hx Cancer: No Hx Cardiac Disorders: No Hx Congestive Heart Failure: No Hx Hypertension: No Hx Hypercholesterolemia: No Hx Pacemaker: No HX Cerebrovascular Accident: No Hx Seizures: No Hx Dementia: No Hx Diabetes: No Hx Gastrointestinal Disorders: Yes (acid reflux.) Hx Liver Disease: No Hx Genitourinary Disorders: No Hx Sexually Transmitted Disorders: No Hx Renal Disease (ESRD): No Hx Thyroid Disease: No Hx Human Immunodeficiency Virus (HIV): No (Last tested at PMD office reports negative results ) Hx Hepatitis C: No (Cannot Remember if ever tested in past.) Hx Depression: No Hx Suicide Attempt: No Hx Bipolar Disorder: No Hx Schizophrenia: No - Patient Surgical History Past Surgical History: No Hx Neurologic Surgery: No Hx Cataract Extraction: No Hx Cardiac Surgery: No Hx Lung Surgery: No Hx Breast Surgery: No Hx Breast Biopsy: No Hx Abdominal Surgery: No Hx Appendectomy: No Hx Cholecystectomy: No Hx Genitourinary Surgery: No Hx Section: No Hx Orthopedic Surgery: No Anesthesia Reaction: No - PPD History Previous Implant?: Yes Documented Results: Positive w/o proof Implanted On Prior [facility] Admission?: No Results: CXR chapis 05/31/17 PPD to be Administered?: No - Smoking Cessation Smoking history: Current some day smoker Have you smoked in the past 12 months: Yes Aproximately how many cigarettes per day: 2 If you are a former smoker, when did you quit?: in 10/2016 Cigars Per Day: 0 Hx Chewing Tobacco Use: No Initiated information on smoking cessation: Yes 'Breaking Loose' booklet given: 07/06/18 - Substance & Tx. History Hx Alcohol Use: Yes Hx Substance Use: Yes Substance Use Type: Alcohol Hx Substance Use Treatment: Yes (Last detox [facility] 02/20/18 -02/24/18.) - Substances Abused Alcohol Route: Oral Frequency: Daily Amount used: 15 beers x 12 oz Age of first use: 17 Date of Last Use: 07/06/18 Family Disease History - Family Disease History Family Disease History: Diabetes: Grandparent ([place] Heart Disease: Grandparent Admission Physical Exam S - Vital Signs Vital Signs: Vital Signs - 24 hr 07/06/18 10:01 Temperature 97.5 F L Pulse Rate 86 Respiratory 19 Rate Blood Pressure 146/92 - Physical General Appearance: Yes: Appropriately Dressed, Mild Distress, Alcohol on Breath , Obese, Tremorous, Sweating, Anxious HEENTM: Yes: EOMI, Hearing grossly Normal, Normal ENT Inspection, Normocephalic , Normal Voice, DORA, Pharynx Normal, Tm's normal, Other (bilateral conjuctival erythema) Respiratory: Yes: Chest Non-Tender, Lungs Clear, Normal Breath Sounds, No Respiratory Distress, No Accessory Muscle Use Neck: Yes: Within Normal Limits Breast: Yes: Breast Exam Deferred Cardiology: Yes: Regular Rhythm, Regular Rate Abdominal: Yes: Normal Bowel Sounds, Non Tender, Soft, Protuberent Genitourinary: Yes: Within Normal Limits Back: Yes: Normal Inspection Musculoskeletal: Yes: full range of Motion, Gait Steady, Pelvis Stable Extremities: Yes: Normal Capillary Refill, Normal Inspection, Normal Range of Motion, Non-Tender Neurological: Yes: neurodiagnostic technologist II-XII NML intact, Fully Oriented, Alert, Motor Strength 5/5, Depressed Affect Integumentary: Yes: Normal Color, Warm, Diaphoresis Lymphatic: Yes: Within Normal Limits - Diagnostic (1) Diabetes mellitus type 2 in obese Current Visit: Yes Status: Chronic Comment: no meds (2) Dry eyes, bilateral Current Visit: Yes Status: Acute (3) Alcohol dependence with uncomplicated withdrawal Current Visit: Yes Status: Acute (4) GERD (gastroesophageal reflux disease) Current Visit: Yes Status: Chronic Qualifiers: Esophagitis presence: esophagitis presence not specified Qualified Code(s) : K21.9 - Gastro-esophageal reflux disease without esophagitis Cleared for Admission [facility] - Detox or Rehab [facility] Level of Care: Medically Managed Detox Regimen/Protocol: Librium [facility] Breath Alcohol Content Breath Alcohol Content: 0.204 Urine Drug Screen - Results Drug Screen Negative: Yes
[2018-07-06] MEDS ORDERED: LOPERAMIDE HCL 2 MG CAPSULE PO PRN (14:49)
[2018-07-06] MEDS ORDERED: MAGNESIUM HYDROX 2400MG/30ML ORAL SUSPENSION 30 ML CUP PO PRN (14:49)
[2018-07-06] MEDS ORDERED: MAGNESIUM CITRATE 300 ML BOTTLE PO PRN (14:49)
[2018-07-06] MEDS ORDERED: MENTHOL/PHENOL 1 EACH UD MM PRN (14:49)
[2018-07-06] MEDS ORDERED: P-EPHED 60MG/TRIPROLIDI 2.5MG TABLET PO PRN (14:49)
[2018-07-06] MEDS ORDERED: IBUPROFEN 400 MG TABLET (FP) PO PRN (14:49)
[2018-07-06] MEDS ORDERED: guaiFENesin/D-METHORPHAN HB 10 ML UNIT-DOSE CUPS PO PRN (14:49)
[2018-07-06] MEDS ORDERED: chlordiazePOXIDE HCL 25 MG CAPSULE PO ONE (15:30)
[2018-07-06] MEDS: chlordiazePOXIDE HCL 25 MG CAPSULE PO SCH ×2 (17:33→22:41)
[2018-07-06] MEDS: hydrOXYzine PAMOATE 50 MG CAPSULE (FP) PO PRN (17:33)
[2018-07-06] MEDS: MAG HYDROX/AL HYDROX/SIMETH 30 ML UNIT-DOSE CUP PO PRN (18:12)
[2018-07-06 18:18] LABS: URINE APPEARANCE CLEAR; URINE BILIRUBIN NEGATIVE (<2.0 mg/dL); URINE COLOR AMBER; URINE GLUCOSE (UA) 3+ (NEGATIVE); URINE KETONE NEGATIVE (NEGATIVE); URINE LEUK ESTERASE NEGATIVE (NEGATIVE); URINE NITRITE NEGATIVE (NEGATIVE); URINE PROTEIN NEGATIVE (NEGATIVE); URINE UROBILINOGEN NEGATIVE mg/dL (0.2-1.0)
[2018-07-06] MEDS: chlordiazePOXIDE HCL 25 MG CAPSULE PO PRN (20:17)
[2018-07-06] MEDS: ACETAMINOPHEN 325 MG TABLET (FP) PO PRN (21:28)
[2018-07-06] MEDS ORDERED: MELATONIN 5 MG TABLETS PO PRN (22:00)
[2018-07-06] MEDS: THIAMINE HCL 100 MG TABLET (FP) PO SCH (22:41)
[2018-07-07] MEDS: chlordiazePOXIDE HCL 25 MG CAPSULE PO SCH ×4 (05:53→22:20)
[2018-07-07] MEDS: MAG HYDROX/AL HYDROX/SIMETH 30 ML UNIT-DOSE CUP PO PRN ×2 (05:54→12:49)
[2018-07-07 10:07] LABS: HEMATOCRIT 48.5 % (35.4-49); HEMOGLOBIN 16.7 GM/dL (11.7-16.9); MCH 31.7 pg (25.7-33.7); MCHC 34.4 g/dl (32.0-35.9); MEAN PLT VOLUME 9.6 fl (7.5-11.1); PLATELET COUNT 101 K/MM3 (134-434); RBC 5.27 M/mm3 (4.00-5.60); RDW 14.6 % (11.9-15.9); WHITE BLOOD COUNT 5.1 K/mm3 (4.0-10.0)
[2018-07-07 10:20] LABS: CHLORIDE 93 mmol/L (98-107); POTASSIUM 3.9 mmol/L (3.5-5.1); SODIUM 133 mmol/L (136-145)
[2018-07-07] MEDS: PRENATAL VITAMINS W/ FOLIC ACID TABLET (FP) PO SCH (10:20)
[2018-07-07 10:42] LABS: ALBUMIN 3.3 g/dl (3.4-5.0); ALK PHOS 329 U/L (45-117); ANION GAP 12 MMOL/L (8-16); BILIRUBIN,TOTAL 9.4 mg/dL (0.2-1.0); BLOOD UREA NITROGEN 8 mg/dL (7-18); CALCIUM 7.8 mg/dL (8.5-10.1); CO2 28 mmol/L (21-32); CREATININE 0.8 mg/dL (0.7-1.3); GLUCOSE,RANDOM 190 mg/dL (74-106); SGOT/AST 697 U/L (15-37); SGPT/ALT 765 U/L (12-78); TOT PROT 6.7 g/dl (6.4-8.2)
--- NOTE | 2018-07-07 12:05 | CONSULT ---
[facility] Psychiatric Consult - Data Date of interview: 07/07/18 Admission source: [facility] Identifying data: Readmission to [facility] for this 47 y/o [place]born male seeking detox treatment on for alcohol dependence.Patient is single,a father of one,domiciled and employed. Substance Abuse History: Confirmed by patient in this interview : Smoking history: Current some day smoker. Have you smoked in the past 12 months: Yes. Aproximately how many cigarettes per day: 2. If you are a former smoker, when did you quit?: in 10/2016. Cigars Per Day: 0. Hx Chewing Tobacco Use: No. Initiated information on smoking cessation: Yes. 'Breaking Loose' booklet given : 07/06/18. - Substance & Tx. History. Hx Alcohol Use: Yes. Hx Substance Use : Yes. Substance Use Type: Alcohol. Hx Substance Use Treatment: Yes (Last detox [facility] 02/20/18 -02/24/18.). - Substances Abused. Alcohol. Route: Oral. Frequency: Daily. Amount used: 15 beers x 12 oz. Age of first use: 17. Date of Last Use: 07/06/18 Medical History: GERD. Psychiatric History: Patient denies. Physical/Sexual Abuse/Trauma History: No history. Additional Comment: Drug Screen is negative. Mental Status Exam - Mental Status Exam Alert and Oriented to: Time, Place, Person Cognitive Function: Good Patient Appearance: Well Groomed (short stature,overweight) Mood: Hopeful, Euthymic Affect: Appropriate, Normal Range Patient Behavior: Appropriate, Cooperative Speech Pattern: Clear (bilingual - came to [place] at age 17 - coherent and relevant ), Appropriate Voice Loudness: Normal Thought Process: Intact, Goal Oriented Thought Disorder: Not Present Hallucinations: Denies Suicidal Ideation: Denies Homicidal Ideation: Denies Insight/Judgement: Poor Sleep: Poorly, Difficulty falling asleep Appetite: Good Muscle strength/Tone: Normal Gait/Station: Normal Psychiatric Findings - Problem List ([place] 1, 2,3) (1) Alcohol dependence with uncomplicated withdrawal Current Visit: Yes Status: Acute (2) Insomnia Current Visit: Yes Status: Acute Qualifiers: Insomnia type: unspecified Qualified Code(s): G47.00 - Insomnia, unspecified - Initial Treatment Plan Initial Treatment Plan: Psychoeducation.Sleep hygiene discussed.Detoxification.Ambien 10 mg po hs prn.Patient is made aware of the risk of parasomnias.Agrees to careplan.Observation.
[2018-07-07] MEDS: hydrOXYzine PAMOATE 50 MG CAPSULE (FP) PO PRN (12:49)
[2018-07-07] MEDS: TETRAHYDROZOLINE HCL EYE DROPS OU PRN ×2 (14:42→22:22)
[2018-07-07] MEDS: chlordiazePOXIDE HCL 25 MG CAPSULE PO PRN (14:42)
--- NOTE | 2018-07-07 16:07 | PN ---
[facility] CIWA - CIWA Score Nausea/Vomitin-No Nausea/No Vomiting Muscle Tremors: 3 Anxiety: 4-Mod. Anxious/Guarded Agitation: 3 Paroxysmal Sweats: No Perspiration Orientation: 0-Oriented Tacttile Disturbances: 2-Mild Itch/Numbness/Burn Auditory Disturbances: 2-Mild Harshness/Frighten Visual Disturbances: 2-Mild Sensitivity Headache: 0-None Present CIWA-Ar Total Score: 16 S Progress Note (SOAP) Subjective: Interrupted Sleep, Anxiety, Tremors, Stomach Cramping, Diarrhea. Objective: PATIENT A & O X 3, OBSERVED AMBULATING ON UNIT. NO ACUTE DISTRESS. 07/07/18 16:04 Vital Signs Temperature 97.2 F L 07/07/18 14:19 Pulse Rate 92 H 07/07/18 15:59 Respiratory Rate 18 07/07/18 15:59 Blood Pressure 170/97 07/07/18 14:19 O2 Sat by Pulse Oximetry (%) Laboratory Tests 07/06/18 07/07/18 07/07/18 09:47 05:52 06:20 WBC 5.1 RBC 5.27 Hgb 16.7 Hct 48.5 MCV 92.0 MCH 31.7 MCHC 34.4 RDW 14.6 D Plt Count 101 L D MPV 9.6 D Sodium Potassium Chloride Carbon Dioxide Anion Gap BUN Creatinine Creat Clearance w eGFR POC Glucometer 122 Random Glucose Calcium Total Bilirubin AST ALT Alkaline Phosphatase Total Protein Albumin Urine Color Kayla Urine Appearance Clear Urine pH 6.0 Ur Specific [place] 1.007 Urine Protein Negative Urine Glucose (UA) 3+ H Urine Ketones Negative Urine Blood Negative Urine Nitrite Negative Urine Bilirubin Negative Urine Urobilinogen Negative Ur Leukocyte Esterase Negative RPR Titer 07/07/18 07/07/18 06:20 06:20 WBC RBC Hgb Hct MCV MCH MCHC RDW Plt Count MPV Sodium 133 L Potassium 3.9 Chloride 93 L Carbon Dioxide 28 Anion Gap 12 BUN 8 Creatinine 0.8 Creat Clearance w eGFR > 60 POC Glucometer Random Glucose 190 H Calcium 7.8 L Total Bilirubin 9.4 H AST 697 H D ALT 765 H D Alkaline Phosphatase 329 H Total Protein 6.7 Albumin 3.3 L Urine Color Urine Appearance Urine pH Ur Specific [place] Urine Protein Urine Glucose (UA) Urine Ketones Urine Blood Urine Nitrite Urine Bilirubin Urine Urobilinogen Ur Leukocyte Esterase RPR Titer Nonreactive LABS NOTED. Assessment: 07/07/18 16:04 WITHDRAWAL SYMPTOMS. THROMBOCYTOPENIA. 07/07/18 16:06 Plan: CONTINUE DETOX. INCREASE DAILY PO FLUID INTAKE. PRN IMMODIUM FOR DIARRHEA. CONTINUE TO MONITOR BP. HFP ON 07/09/2018 FOR ELEVATED ADMISSION LIVER ENZYME LEVELS.
--- NOTE | 2018-07-07 19:08 | EKG ---
Test Reason : Blood Pressure : / mmHG Vent. Rate : 093 BPM Atrial Rate : 093 BPM P-R Int : 144 ms QRS Dur : 100 ms QT Int : 366 ms P-R-T Axes : 071 -13 031 degrees QTc Int : 455 ms POOR DATA QUALITY, INTERPRETATION MAY BE ADVERSELY AFFECTED NORMAL SINUS RHYTHM NORMAL ECG WHEN COMPARED WITH ECG OF 20-FEB-2018 17:29, NO SIGNIFICANT CHANGE WAS FOUND Confirmed by OCHOA OLIVARES, STEPHANIE ([id number]) on 07/07/2018 7:08:20 PM Referred By: Nicki Faustin Confirmed By:STEPHANIE PACKER MD
[2018-07-07] MEDS: THIAMINE HCL 100 MG TABLET (FP) PO SCH (22:20)
[2018-07-07] MEDS: ZOLPIDEM TARTRATE 10 MG TABLET (PARK CARE ONLY) PO PRN (22:21)
[2018-07-07] MEDS: ACETAMINOPHEN 325 MG TABLET (FP) PO PRN (23:11)
[2018-07-08] MEDS: chlordiazePOXIDE HCL 25 MG CAPSULE PO SCH ×2 (05:52→10:25)
[2018-07-08] MEDS: TETRAHYDROZOLINE HCL EYE DROPS OU PRN ×2 (06:08→22:23)
[2018-07-08] MEDS: PRENATAL VITAMINS W/ FOLIC ACID TABLET (FP) PO SCH (10:25)
[2018-07-08] MEDS: MAG HYDROX/AL HYDROX/SIMETH 30 ML UNIT-DOSE CUP PO PRN ×2 (10:27→17:53)
--- NOTE | 2018-07-08 14:07 | PN ---
[facility] CIWA - CIWA Score Nausea/Vomitin Muscle Tremors: 3 Anxiety: 3 Agitation: 3 Paroxysmal Sweats: 3 Orientation: 0-Oriented Tacttile Disturbances: 1-Very Mild Itch/Numbness Auditory Disturbances: 0-None Visual Disturbances: 0-None Headache: 1-Very Mild CIWA-Ar Total Score: 16 [facility] Progress Note (SOAP) Subjective: Headache, nausea, tremor, anxious Objective: 07/08/18 14:03 Last Vital Signs Temp Pulse Resp BP Pulse Ox 98.8 F 76 18 138/82 07/08/18 09:34 07/08/18 09:34 07/08/18 09:34 07/08/18 09:34 Laboratory Tests 07/06/18 07/07/18 07/07/18 09:47 05:52 06:20 WBC 5.1 RBC 5.27 Hgb 16.7 Hct 48.5 MCV 92.0 MCH 31.7 MCHC 34.4 RDW 14.6 D Plt Count 101 L D MPV 9.6 D Sodium Potassium Chloride Carbon Dioxide Anion Gap BUN Creatinine Creat Clearance w eGFR POC Glucometer 122 Random Glucose Calcium Total Bilirubin AST ALT Alkaline Phosphatase Total Protein Albumin Urine Color Kayla Urine Appearance Clear Urine pH 6.0 Ur Specific [place] 1.007 Urine Protein Negative Urine Glucose (UA) 3+ H Urine Ketones Negative Urine Blood Negative Urine Nitrite Negative Urine Bilirubin Negative Urine Urobilinogen Negative Ur Leukocyte Esterase Negative RPR Titer 07/07/18 07/07/18 07/08/18 06:20 06:20 05:51 WBC RBC Hgb Hct MCV MCH MCHC RDW Plt Count MPV Sodium 133 L Potassium 3.9 Chloride 93 L Carbon Dioxide 28 Anion Gap 12 BUN 8 Creatinine 0.8 Creat Clearance w eGFR > 60 POC Glucometer 162 Random Glucose 190 H Calcium 7.8 L Total Bilirubin 9.4 H AST 697 H D ALT 765 H D Alkaline Phosphatase 329 H Total Protein 6.7 Albumin 3.3 L Urine Color Urine Appearance Urine pH Ur Specific [place] Urine Protein Urine Glucose (UA) Urine Ketones Urine Blood Urine Nitrite Urine Bilirubin Urine Urobilinogen Ur Leukocyte Esterase RPR Titer Nonreactive Labs reviewed: elevated LFTs, (will send hepatitis C Ab), Na 133, Cl 93 07/08/18 14:06 Assessment: 07/08/18 14:07 Withdrawal symptoms Noted with grossly elevated LFTs, thrombocytopenia, mild hyponatremia and mild hypochloremia Plan: Continue detox Grossly elevated LFTs: repeat LFTs, send hepatitis C and PCR Thrombocytopenia: monitor, probably due to hepatitis C? Hyponatremia: repeat serum sodium Hypochloremia: repeat bmp
[2018-07-08] MEDS: chlordiazePOXIDE HCL 25 MG CAPSULE PO PRN ×2 (14:27→20:56)
[2018-07-08] MEDS ORDERED: INSULIN (NOVOLOG) ASPART 100 UNITS/ML 10ML VIAL ONE (17:24)
[2018-07-08] MEDS: chlordiazePOXIDE 5 MG CAPSULE PO SCH ×2 (17:50→22:23)
[2018-07-08] MEDS: INSULIN SLIDING SCALE (NOVOLOG) 1 VIAL SQ SCH (17:50)
[2018-07-08] MEDS ORDERED: PANTOPRAZOLE 40 MG TABLET (FP) PO SCH (21:00)
[2018-07-08] MEDS: ZOLPIDEM TARTRATE 10 MG TABLET (PARK CARE ONLY) PO PRN (22:23)
[2018-07-08] MEDS: THIAMINE HCL 100 MG TABLET (FP) PO SCH (22:23)
[2018-07-08 23:48] VITALS: BP 82/64; PULSE 133; TEMP 98.2
--- NOTE | 2018-07-08 23:54 | PN ---
[facility] Progress Note Note: RAPID RESPONSE CALL CLIENT FOUND ON BATHROOM FLOOR R SIDE LYING AWAKE/ALERT AFTER RESPONDING TO A LOUD NOISE. CLIENT DOES NOT RECALL FALLING. JUST WAKING UP ON THE FLOOR. DENIES SOB, C.P., DIZZINESS, N/V/D, INJURIES. " I ACTUALLY FEEL BETTER" CLIENT NOTED SITTING UP ON FLOOR AWAKE, ALERT X3, DIAPHORETIC, PALE, AND JAUNDICE APPEARING, INCONTINENT OF STOOL. BLACK TARRY STOOL NOTED ON FLOOR HEENT- NCAT, PERRLA, EOMI CV- TACHY-130'S LUNGS- CTAB SKIN-DIAPHORETIC, JAUNDICE, PALE Vital Signs Temperature 98.2 F 07/08/18 23:46 Pulse Rate 133 H 07/08/18 23:46 Respiratory Rate 18 07/08/18 23:46 Blood Pressure 82/64 07/08/18 23:46 O2 Sat by Pulse Oximetry (%) Laboratory Tests 07/06/18 07/07/18 07/07/18 09:47 05:52 06:20 WBC 5.1 RBC 5.27 Hgb 16.7 Hct 48.5 MCV 92.0 MCH 31.7 MCHC 34.4 RDW 14.6 D Plt Count 101 L D MPV 9.6 D Sodium Potassium Chloride Carbon Dioxide Anion Gap BUN Creatinine Creat Clearance w eGFR POC Glucometer 122 Random Glucose Calcium Total Bilirubin AST ALT Alkaline Phosphatase Total Protein Albumin Urine Color Kayla Urine Appearance Clear Urine pH 6.0 Ur Specific [place] 1.007 Urine Protein Negative Urine Glucose (UA) 3+ H Urine Ketones Negative Urine Blood Negative Urine Nitrite Negative Urine Bilirubin Negative Urine Urobilinogen Negative Ur Leukocyte Esterase Negative RPR Titer 07/07/18 07/07/18 07/08/18 06:20 06:20 05:51 WBC RBC Hgb Hct MCV MCH MCHC RDW Plt Count MPV Sodium 133 L Potassium 3.9 Chloride 93 L Carbon Dioxide 28 Anion Gap 12 BUN 8 Creatinine 0.8 Creat Clearance w eGFR > 60 POC Glucometer 162 Random Glucose 190 H Calcium 7.8 L Total Bilirubin 9.4 H AST 697 H D ALT 765 H D Alkaline Phosphatase 329 H Total Protein 6.7 Albumin 3.3 L Urine Color Urine Appearance Urine pH Ur Specific [place] Urine Protein Urine Glucose (UA) Urine Ketones Urine Blood Urine Nitrite Urine Bilirubin Urine Urobilinogen Ur Leukocyte Esterase RPR Titer Nonreactive 07/08/18 16:13 WBC RBC Hgb Hct MCV MCH MCHC RDW Plt Count MPV Sodium Potassium Chloride Carbon Dioxide Anion Gap BUN Creatinine Creat Clearance w eGFR POC Glucometer 226 Random Glucose Calcium Total Bilirubin AST ALT Alkaline Phosphatase Total Protein Albumin Urine Color Urine Appearance Urine pH Ur Specific [place] Urine Protein Urine Glucose (UA) Urine Ketones Urine Blood Urine Nitrite Urine Bilirubin Urine Urobilinogen Ur Leukocyte Esterase RPR Titer BGM-320MG/DL A- 47 Y.O. MALE WITH PMHX OF DM, GERD, GI BLEED, ANXIETY, INSOMNIA, SEIZURE R/T ETOH WITHDRAWAL ADMITTED ON 07/06/2018 FOR ETOH DETOX S/P RAPID RESPONSE FOR SYNCOPE, UNWITNESSED FALL, HYPOTENSIVE,TACHYCARDIA, (? GI BLEED) ELEVATED LFTS ( AST/ALT, BILI) P- TRANSFER TO [facility] REPORT GIVEN TO DR. SUTTON
[2018-07-09] MEDS ORDERED: INSULIN SLIDING SCALE (NOVOLOG) 1 VIAL SQ SCH (07:00)
[2018-07-09] MEDS: INSULIN SLIDING SCALE (NOVOLOG) 1 VIAL SQ SCH (07:29)
[2018-07-09] MEDS: chlordiazePOXIDE 5 MG CAPSULE PO SCH (07:29)
[2018-07-09] MEDS ORDERED: chlordiazePOXIDE HCL 10 MG CAPSULE PO SCH (17:00)
== END 2018-07-09 07:39 | disposition short-term general hospital (02) | DRG 775 ==
LOC: YASAS 09:14 → Y3N 15:03
PROVIDERS: ADMIT Surgery; ATTEND Surgery
PROC: HZ2ZZZZ Detoxification Services for Substance Abuse Treatment (ICD-10-PCS; principal; 2018-07-06)
DX: F10.230 Alcohol dependence with withdrawal, uncomplicated (principal); F17.210 Nicotine dependence, cigarettes, uncomplicated; D69.6 Thrombocytopenia, unspecified; E11.9 Type 2 diabetes mellitus without complications; E87.1 Hypo-osmolality and hyponatremia; E87.8 Other disorders of electrolyte and fluid balance, not elsewhere classified; R94.5 Abnormal results of liver function studies; G47.00 Insomnia, unspecified; K21.9 Gastro-esophageal reflux disease without esophagitis; R76.11 Nonspecific reaction to tuberculin skin test without active tuberculosis; H04.123 Dry eye syndrome of bilateral lacrimal glands
CPT/HCPCS: 36415; 80053; 81003; 82962; 85027; 86593; 93005; 93010

== ENCOUNTER 2018-07-09 00:11 | Inpatient (IN) | payer SELFPAY ==
--- NOTE | 2018-07-09 00:43 | PDOC ---
Attending Attestation - Physicial Exam PE: 07/09/18 02:53 ADULT EXAM GENERAL: Awake, alert, and fully oriented, in no acute distress HEAD: No signs of trauma EYES: (+) Sclera icteric. PERRLA, EOMI, conjunctiva clear ENT: Auricles normal inspection, hearing grossly normal, nares patent, oropharynx clear without exudates. Moist mucosa NECK: Normal ROM, supple, no lymphadenopathy, JVD, or masses LUNGS: Breath sounds equal, clear to auscultation bilaterally. No wheezes, and no crackles HEART: Regular rate and rhythm, normal S1 and S2, no murmurs, rubs or gallops ABDOMEN: Soft, nontender, normoactive bowel sounds. No guarding, no rebound. No masses EXTREMITIES: Normal range of motion, no edema. No clubbing or cyanosis. No cords, erythema, or tenderness NEUROLOGICAL: Cranial nerves II through XII grossly intact. Normal speech, normal gait SKIN: Warm, Dry, normal turgor, no rashes or lesions noted. <Merlene Hendricks - Last Filed: 07/09/18 02:53> - Resident Resident Name: Tatyana Ellis - ED Attending Attestation I have performed the following: I have examined & evaluated the patient, The case was reviewed & discussed with the resident, I agree w/resident's findings & plan - HPI HPI: 07/09/18 00:45 Pt had a syncopal episode at [facility] [place] today. He is a known alcoholic. His blood tests from 2 days ago demonstrate elevated Tbili and LFTs - Medical Decision Making 07/09/18 00:45 Pt will be admitted to [facility] for syncope, jaundice and alcoholic hepatitis. 07/09/18 03:28 Hospitalist team doesn't want to admit the patient; however I feel uncomfortable discharging the patient, given hypoCa+, drop in Hb, uncontrolled DM, near syncope, jaundice with Tbili 8+, alcoholic hepatitis, and tachycardia and dehydration. We will ED obs him. <Deidre Osei - Last Filed: 07/09/18 03:30>
[2018-07-09] MEDS ORDERED: SODIUM CHLORIDE 1,000 ML IV STA ×2 (00:45→02:21)
--- NOTE | 2018-07-09 00:49 | PDOC ---
History of Present Illness - General History Source: Patient - History of Present Illness Initial Comments: 07/09/18 00:47 Pt is a 47yo male with PMH of alcohol dependence, GERD, DM (not on meds) presenting to ED from detox because of a witnessed syncopal episode. Pt said he ate dinner then went to walk for a few laps. Pt went back to his room and started to feel hot, and he had an episode of emesis (not bloody). He asked the nurse if it was him or the room, and the nurse said the AC was not on. Pt felt better once the AC was on. Moments later pt said he started to feel hot again and asked the nurse to turn the AC back on. He then proceeded to go to the bathroom when he felt lightheaded and fell. Pt states he remembers the episode, and is "pretty sure" he did not hit his head or lose consciousness. He was not confused after the episode. Did not lose control of bowel/bladder He denies fever, chills, headache, changes in vision, nausea, diarrhea, neck stiffness, dysuria, frequency, blood in stool. He says he has some abdominal pain, but thinks it is from where he fell. He denies having any seizure from alcohol withdrawal. PMH: see hpi PSH: none Meds: "they give it to me at detox" Allergies: nkda Social: last drink was on Monday. <Tatyana Ellis - Last Filed: 07/09/18 03:21> <Deidre Osei - Last Filed: 07/09/18 03:27> - General Chief Complaint: Syncope/Near Syncope Stated Complaint: SYNCOPE,HYPERGLYCEMIA Time Seen by Provider: 07/09/18 00:24 Past History - Past Medical History Anemia: No Asthma: No Cancer: No Cardiac Disorders: No CVA: No COPD: No CHF: No Dementia: No Diabetes: No GI Disorders: Yes (acid reflux.) Disorders: No HTN: No Hypercholesterolemia: No Kidney Stones: No Liver Disease: No Seizures: No Thyroid Disease: No - Surgical History Abdominal Surgery: No Appendectomy: No Cardiac Surgery: No Cholecystectomy: No Lung Surgery: No Neurologic Surgery: No Orthopedic Surgery: No - Reproductive History Testicular Surgery: No - Suicide/Smoking/Psychosocial Hx Smoking History: Never smoked Have you smoked in the past 12 months: Yes Number of Cigarettes Smoked Daily: 2 If you are a former smoker, when did you quit?: in 10/2016 Cigars Per Day: 0 'Breaking Loose' booklet given: 07/06/18 Hx Alcohol Use: No Drug/Substance Use Hx: No Substance Use Type: Alcohol Hx Substance Use Treatment: Yes (Last detox [facility] 02/20/18 -02/24/18.) <Tatyana Ellis - Last Filed: 07/09/18 03:21> <Deidre Osei - Last Filed: 07/09/18 03:27> - Past Medical History Allergies/Adverse Reactions: Allergies Allergy/AdvReac Type Severity Reaction Status Date / Time No Known Allergies Allergy Verified 07/09/18 01:07 Home Medications: Ambulatory Orders NK [No Known Home Medication] 07/09/18 Review of Systems - Review of Systems Constitutional: Yes: Weakness. No: Chills, Fever HEENTM: No: Eye Pain, Blurred Vision, Recent change in vision, Double Vision, Throat Pain Respiratory: No: Cough, Shortness of Breath Cardiac (ROS): Yes: Lightheadedness, Syncope. No: Chest Pain, Palpitations ABD/GI: Yes: Vomiting, Abdominal cramping. No: Blood Streaked Bowels, Constipated, Diarrhea, Nausea, Tarry Stools : No: Burning, Dysuria, Incontinence Musculoskeletal: No: Back Pain, Joint Pain, Muscle Pain, Neck Pain Neurological: No: Headache, Numbness, Tingling, Weakness <Tatyana Ellis - Last Filed: 07/09/18 03:21> *Physical Exam - Vital Signs Last Vital Signs Temp Pulse Resp BP Pulse Ox 99.4 F 131 H 18 104/31 100 07/09/18 00:19 07/09/18 00:19 07/09/18 00:19 07/09/18 00:19 07/09/18 00:19 - Physical Exam General Appearance: Yes: Nourished, Appropriately Dressed. No: Apparent Distress HEENT: positive: EOMI, DORA, Scleral Icterus (R), Scleral Icterus (L). negative : Pharyngeal Erythema, Tonsillar Exudate Neck: positive: Trachea midline, Supple. negative: Lymphadenopathy (R), Lymphadenopathy (L) Respiratory/Chest: positive: Lungs Clear. negative: Crackles, Rales, Wheezing Cardiovascular: positive: Regular Rhythm, S1, S2, Tachycardia. negative: JVD, Murmur Vascular Pulses: Dorsalis-Pedis (R): 2+, Doralis-Pedis (L): 2+ Gastrointestinal/Abdominal: positive: Normal Bowel Sounds, Soft. negative: Distended, Guarding, Rebound, Tenderness Musculoskeletal: positive: Normal Inspection, Other (No hip tenderness, full ROM of hip.). negative: CVA Tenderness, Decreased Range of Motion Extremity: positive: Normal Capillary Refill Integumentary: positive: Dry, Warm, Jaundice Neurologic: positive: internet developer II-XII NML intact, Fully Oriented, Alert, Normal Mood/ Affect, Normal Response, Motor Strength 5/5. negative: Sensory Deficit <Tatyana Ellis - Last Filed: 07/09/18 03:21> - Vital Signs Last Vital Signs Temp Pulse Resp BP Pulse Ox 99.4 F 118 H 18 120/78 96 07/09/18 00:19 07/09/18 03:05 07/09/18 03:05 07/09/18 03:05 07/09/18 03:05 <Deidre Osei - Last Filed: 07/09/18 03:27> ED Treatment Course - LABORATORY CBC & Chemistry Diagram: 07/09/18 01:10 07/09/18 01:10 - RADIOLOGY Radiology Studies Ordered: Category Date Time Status HEAD CT WITHOUT CONTRAST [CT] Stat CT Scan 07/09/18 00:45 Ordered CHEST X-RAY PORTABLE* [RAD] Stat Radiology 07/09/18 00:45 Ordered <Tatyana Ellis - Last Filed: 07/09/18 03:21> - LABORATORY CBC & Chemistry Diagram: 07/09/18 01:10 07/09/18 01:10 - ADDITIONAL ORDERS Additional order review: Laboratory Results 07/09/18 07/09/18 07/09/18 01:10 01:10 01:10 WBC RBC Hgb Hct MCV MCH MCHC RDW Plt Count MPV Absolute Neuts (auto) Neutrophils % Lymphocytes % Monocytes % Eosinophils % Basophils % Nucleated RBC % Sodium 132 L Potassium 4.7 D Chloride 93 L Carbon Dioxide 32 Anion Gap 7 L BUN 24 H Creatinine 1.1 Creat Clearance w eGFR > 60 Random Glucose 307 H* D Lactic Acid 2.4 H* Calcium 7.9 L Total Bilirubin 8.1 H AST 265 H D ALT 336 H D Alkaline Phosphatase 247 H D Creatine Kinase 471 H Creatine Kinase Index 0.5 CK-MB (CK-2) 2.48 Troponin I 0.05 Total Protein 5.0 L Albumin 2.2 L Lipase 81 Urine Color Kayla Urine Appearance Clear Urine pH 6.0 Ur Specific [place] 1.020 Urine Protein Negative Urine Glucose (UA) 3+ H Urine Ketones Trace H Urine Blood Negative Urine Nitrite Negative Urine Bilirubin 4.0 Urine Urobilinogen 4.0 e.u/dl Ur Leukocyte Esterase Negative 07/09/18 01:10 WBC 6.0 RBC 3.41 L Hgb 11.0 L Hct 32.5 L D MCV 95.3 MCH 32.3 MCHC 33.9 RDW 13.5 Plt Count 90 L MPV 9.8 Absolute Neuts (auto) 4.7 Neutrophils % 78.6 Lymphocytes % 15.8 Monocytes % 5.2 Eosinophils % 0.1 Basophils % 0.3 Nucleated RBC % 0 Sodium Potassium Chloride Carbon Dioxide Anion Gap BUN Creatinine Creat Clearance w eGFR Random Glucose Lactic Acid Calcium Total Bilirubin AST ALT Alkaline Phosphatase Creatine Kinase Creatine Kinase Index CK-MB (CK-2) Troponin I Total Protein Albumin Lipase Urine Color Urine Appearance Urine pH Ur Specific [place] Urine Protein Urine Glucose (UA) Urine Ketones Urine Blood Urine Nitrite Urine Bilirubin Urine Urobilinogen Ur Leukocyte Esterase 07/09/18 01:10 RBC 3.41 L MCV 95.3 MCHC 33.9 RDW 13.5 MPV 9.8 Neutrophils % 78.6 Lymphocytes % 15.8 Monocytes % 5.2 Eosinophils % 0.1 Basophils % 0.3 - Medications Given in the ED: ED Medications Discontinued Medications Generic Name Dose Route Start Last Admin Trade Name Freq PRN Reason Stop Dose Admin Sodium Chloride 1,000 mls @ 1,000 mls/hr 07/09/18 00:45 07/09/18 01:17 Normal Saline - IV 07/09/18 01:44 1,000 mls/hr ASDIR STA Administration Sodium Chloride 1,000 mls @ 1,000 mls/hr 07/09/18 02:21 07/09/18 02:24 Normal Saline - IV 07/09/18 03:20 1,000 mls/hr ASDIR STA Administration <Deidre Osei - Last Filed: 07/09/18 03:27> Medical Decision Making - Medical Decision Making 07/09/18 01:24 Pt is a 47yo male with PMH of alcohol dependence, GERD, DM (not on meds) presenting to ED from detox because of a witnessed syncopal episode. CT head to rule out bleed. Will do cadiac workup to rule out cardiac pathology of syncope/presyncope Pt tachycardic and slightly hypotensive (96/64) will give bolus and reeval. No blood in vomitus, belly nontender. No concern for GI bleed at this time. CBC, CMP, Lipase, lact. 07/09/18 01:44 CBC showed Hgb of 11, which is down from his previous measurement of 16 taken on 07/07 BP recheck was 104/67. Pt still tachycardic at 116 Low suspicion for PE, Well's score 1.5. Lactate elevated at 2. Will give another bolus and reevaluate. <Tatyana Ellis - Last Filed: 07/09/18 03:21> *DC/Admit/Observation/Transfer - Discharge Dispostion Decision to Admit order: No <Tatyana Ellis - Last Filed: 07/09/18 03:21> - Discharge Dispostion Decision to Admit order: Yes <Deidre Osei - Last Filed: 07/09/18 03:27> Diagnosis at time of Disposition: Uncontrolled diabetes mellitus, Tachycardia, Dehydration, Elevated LFTs, Jaundice Syncope Qualifiers: Syncope type: unspecified Qualified Code(s): R55 - Syncope and collapse Alcoholic hepatitis Qualifiers: Ascites presence: without ascites Qualified Code(s): K70.10 - Alcoholic hepatitis without ascites - Referrals Referrals: Tony Ozuna MD [Primary Care Provider] -
[2018-07-09 01:29] LABS: BASO % 0.3 % (0-2.0); EOS % 0.1 % (0-4.5); HEMATOCRIT 32.5 % (35.4-49); LYMPH % 15.8 % (8-40); MCH 32.3 pg (25.7-33.7); MCHC 33.9 g/dl (32.0-35.9); MEAN CELL VOLUME 95.3 fl (80-96); MEAN PLT VOLUME 9.8 fl (7.5-11.1); MONO % 5.2 % (3.8-10.2); NEUT % 78.6 % (42.8-82.8); PLATELET COUNT 90 K/MM3 (134-434); RBC 3.41 M/mm3 (4.00-5.60); RDW 13.5 % (11.9-15.9)
[2018-07-09 01:34] LABS: URINE APPEARANCE CLEAR; URINE COLOR AMBER; URINE GLUCOSE (UA) 3+ (NEGATIVE); URINE KETONE TRACE (NEGATIVE); URINE LEUK ESTERASE NEGATIVE (NEGATIVE); URINE NITRITE NEGATIVE (NEGATIVE); URINE PROTEIN NEGATIVE (NEGATIVE); URINE UROBILINOGEN 4.0 E.U/dl mg/dL (0.2-1.0)
[2018-07-09 01:53] LABS: ALBUMIN 2.2 g/dl (3.4-5.0); ANION GAP 7 MMOL/L (8-16); BLOOD UREA NITROGEN 24 mg/dL (7-18); CALCIUM 7.9 mg/dL (8.5-10.1); CHLORIDE 93 mmol/L (98-107); CO2 32 mmol/L (21-32); CREATININE 1.1 mg/dL (0.7-1.3); LIPASE 81 U/L (73-393); SGPT/ALT 336 U/L (12-78); SODIUM 132 mmol/L (136-145)
[2018-07-09 01:58] LABS: ALK PHOS 247 U/L (45-117); GLUCOSE,RANDOM 307 mg/dL (74-106); SGOT/AST 265 U/L (15-37)
[2018-07-09 01:59] LABS: BILIRUBIN,TOTAL 8.1 mg/dL (0.2-1.0); POTASSIUM 4.7 mmol/L (3.5-5.1)
[2018-07-09] MEDS ORDERED: INSULIN REGULAR HUMAN 100 UNITS/ML *VIAL SQ ONE (03:30)
[2018-07-09] MEDS ORDERED: INSULIN REGULAR HUMAN 100 UNITS/ML *VIAL ONE (03:57)
--- NOTE | 2018-07-09 05:09 | HP ---
CHIEF COMPLAINT: PCP: HISTORY OF PRESENT ILLNESS: ER course was notable for: (1) (2) (3) Recent Travel: PAST MEDICAL HISTORY: PAST SURGICAL HISTORY: Social History: Smoking: Alcohol: Drugs: Family History: Allergies No Known Allergies Allergy (Verified 07/09/18 01:07) HOME MEDICATIONS: Home Medications Medication Instructions Recorded NK [No Known Home Medication] 07/09/18 REVIEW OF SYSTEMS CONSTITUTIONAL: Absent: fever, chills, diaphoresis, generalized weakness, malaise, loss of appetite, weight change HEENT: Absent: rhinorrhea, nasal congestion, throat pain, throat swelling, difficulty swallowing, mouth swelling, ear pain, eye pain, visual changes CARDIOVASCULAR: Absent: chest pain, syncope, palpitations, irregular heart rate, lightheadedness , peripheral edema RESPIRATORY: Absent: cough, shortness of breath, dyspnea with exertion, orthopnea, wheezing, stridor, hemoptysis GASTROINTESTINAL: Absent: abdominal pain, abdominal distension, nausea, vomiting, diarrhea, constipation, melena, hematochezia GENITOURINARY: Absent: dysuria, frequency, urgency, hesitancy, hematuria, flank pain, genital pain MUSCULOSKELETAL: Absent: myalgia, arthralgia, joint swelling, back pain, neck pain SKIN: Absent: rash, itching, pallor HEMATOLOGIC/IMMUNOLOGIC: Absent: easy bleeding, easy bruising, lymphadenopathy, frequent infections ENDOCRINE: Absent: unexplained weight gain, unexplained weight loss, heat intolerance, cold intolerance NEUROLOGIC: Absent: headache, focal weakness or paresthesias, dizziness, unsteady gait, seizure, mental status changes, bladder or bowel incontinence PSYCHIATRIC: Absent: anxiety, depression, suicidal or homicidal ideation, hallucinations. PHYSICAL EXAMINATION Vital Signs - 24 hr 07/09/18 07/09/18 00:19 03:05 Temperature 99.4 F Pulse Rate 131 H Pulse Rate [ 118 H Left Radial] Respiratory 18 18 Rate Blood Pressure 104/31 Blood Pressure 120/78 [Left Arm] O2 Sat by Pulse 100 96 Oximetry (%) GENERAL: Awake, alert, and fully oriented, in no acute distress. HEAD: Normal with no signs of trauma. EYES: Pupils equal, round and reactive to light, extraocular movements intact, sclera anicteric, conjunctiva clear. No lid lag. EARS, NOSE, THROAT: Ears normal, nares patent, oropharynx clear without exudates. Moist mucous membranes. NECK: Normal range of motion, supple without lymphadenopathy, JVD, or masses. LUNGS: Breath sounds equal, clear to auscultation bilaterally. No wheezes, and no crackles. No accessory muscle use. HEART: Regular rate and rhythm, normal S1 and S2 without murmur, rub or gallop. ABDOMEN: Soft, nontender, not distended, normoactive bowel sounds, no guarding, no rebound, no masses. No hepatomegaly or splenomegaly. MUSCULOSKELETAL: Normal range of motion at all joints. No bony deformities or tenderness. No CVA tenderness. UPPER EXTREMITIES: 2+ pulses, warm, well-perfused. No cyanosis. No clubbing. No peripheral edema. LOWER EXTREMITIES: 2+ pulses, warm, well-perfused. No calf tenderness. No peripheral edema. NEUROLOGICAL: Cranial nerves II-XII intact. Normal speech. Normal gait. PSYCHIATRIC: Cooperative. Good eye contact. Appropriate mood and affect. SKIN: Warm, dry, normal turgor, no rashes or lesions noted, normal capillary refill. Laboratory Results - last 24 hr 07/09/18 07/09/18 07/09/18 01:10 01:10 01:10 WBC 6.0 RBC 3.41 L Hgb 11.0 L Hct 32.5 L D MCV 95.3 MCH 32.3 MCHC 33.9 RDW 13.5 Plt Count 90 L MPV 9.8 Absolute Neuts (auto) 4.7 Neutrophils % 78.6 Lymphocytes % 15.8 Monocytes % 5.2 Eosinophils % 0.1 Basophils % 0.3 Nucleated RBC % 0 Sodium 132 L Potassium 4.7 D Chloride 93 L Carbon Dioxide 32 Anion Gap 7 L BUN 24 H Creatinine 1.1 Creat Clearance w eGFR > 60 Random Glucose 307 H* D Lactic Acid Calcium 7.9 L Total Bilirubin 8.1 H AST 265 H D ALT 336 H D Alkaline Phosphatase 247 H D Creatine Kinase 471 H Creatine Kinase Index 0.5 CK-MB (CK-2) 2.48 Troponin I 0.05 Total Protein 5.0 L Albumin 2.2 L Lipase 81 Urine Color Kayla Urine Appearance Clear Urine pH 6.0 Ur Specific [place] 1.020 Urine Protein Negative Urine Glucose (UA) 3+ H Urine Ketones Trace H Urine Blood Negative Urine Nitrite Negative Urine Bilirubin 4.0 Urine Urobilinogen 4.0 e.u/dl Ur Leukocyte Esterase Negative Stool Occult Blood 07/09/18 07/09/18 01:10 03:30 WBC RBC Hgb Hct MCV MCH MCHC RDW Plt Count MPV Absolute Neuts (auto) Neutrophils % Lymphocytes % Monocytes % Eosinophils % Basophils % Nucleated RBC % Sodium Potassium Chloride Carbon Dioxide Anion Gap BUN Creatinine Creat Clearance w eGFR Random Glucose Lactic Acid 2.4 H* Calcium Total Bilirubin AST ALT Alkaline Phosphatase Creatine Kinase Creatine Kinase Index CK-MB (CK-2) Troponin I Total Protein Albumin Lipase Urine Color Urine Appearance Urine pH Ur Specific [place] Urine Protein Urine Glucose (UA) Urine Ketones Urine Blood Urine Nitrite Urine Bilirubin Urine Urobilinogen Ur Leukocyte Esterase Stool Occult Blood Positive ASSESSMENT/PLAN: Hospitalist Screening - Colonoscopy Questionnaire Colonoscopy Questionnaire: Colonoscopy Questionnaire
[2018-07-09] MEDS ORDERED: LACTATED RINGERS SOLUTION 1,000 ML IV SCH (05:30)
[2018-07-09] MEDS ORDERED: PANTOPRAZOLE 40 MG TABLET (FP) PO SCH (05:45)
[2018-07-09] MEDS ORDERED: SODIUM CHLORIDE 1,000 ML IV SCH (05:45)
[2018-07-09 05:49] LABS: BASO % 0.5 % (0-2.0); EOS % 0.2 % (0-4.5); HEMATOCRIT 26.3 % (35.4-49); HEMOGLOBIN 8.8 GM/dL (11.7-16.9); LYMPH % 27.2 % (8-40); MCH 32.4 pg (25.7-33.7); MCHC 33.6 g/dl (32.0-35.9); MEAN CELL VOLUME 96.4 fl (80-96); MEAN PLT VOLUME 9.2 fl (7.5-11.1); MONO % 5.6 % (3.8-10.2); NEUT % 66.5 % (42.8-82.8); PLATELET COUNT 79 K/MM3 (134-434); RBC 2.73 M/mm3 (4.00-5.60); RDW 13.6 % (11.9-15.9); WHITE BLOOD COUNT 5.8 K/mm3 (4.0-10.0)
--- NOTE | 2018-07-09 05:55 | HP ---
CHIEF COMPLAINT: Near syncope PCP: HISTORY OF PRESENT ILLNESS: Patient is a 47 year old with past medical history of EtOH dependence, GERD, and DM Type 2 (controlled with diet), was sent in from detox for apparent syncopal episode. When speaking to the patient he reports that he was outside walking a few laps and when he returned to his room he felt extremely warm and was profusely sweating. He asked his nurse if the room was warm and she responded yes because he had the AC off. When he went to use the restroom, he states he was dizzy due to the heat and fell to the floor. Patient states he remembered the whole incident and did not lose consciousness and was not confused or altered. After his fall, he ate a bowl of cereal, yogurt, meat with potatoes and afterwards, had one episode of NBNB emesis yesterday. Patient does report having a PCP and seeing a GI in the past (years ago). Patient had U/S done in the past and was told that he needed to stop alcohol because his "liver was large". He also noted to have EGD done 12 years ago and was diagnosed with "ulcers". Patient also reported passage of black tarry stools for the past 2 days. In addition, he was prescribed Motrin which he started taking 3 days ago due to back pain. Patient has been in detox in the last couple of days, and denies having any alcohol withdrawals or any seizures. He reports being an alcoholic since he was a teenager. He denies chest pain, SOB, nausea, diarrhea, abdominal pain. ER course was notable for: (1)Hgb 11, Hct 32.5, Plt 90 (2)Glu 307, AST 265, ALT 336 (3) Recent Travel:denies any recent travel PAST MEDICAL HISTORY: EtOH dependence GERD DM Type 2 PAST SURGICAL HISTORY: Social History: Smoking:previous smoker, quit 2 months ago, used to smoke 1/2 PPD since teenager Alcohol:drinks EtOH since teenager, at least 5 bottles of beer/day, last drink Monday (07/06/18) Drugs: denies illicit drug use Family History: Allergies No Known Allergies Allergy (Verified 07/09/18 01:07) HOME MEDICATIONS: Home Medications Medication Instructions Recorded NK [No Known Home Medication] 07/09/18 REVIEW OF SYSTEMS CONSTITUTIONAL: Absent: fever, chills, diaphoresis, generalized weakness, malaise, loss of appetite, weight change HEENT: Absent: rhinorrhea, nasal congestion, throat pain, throat swelling, difficulty swallowing, mouth swelling, ear pain, eye pain, visual changes CARDIOVASCULAR: Absent: chest pain, syncope, palpitations, irregular heart rate, lightheadedness , peripheral edema RESPIRATORY: Absent: cough, shortness of breath, dyspnea with exertion, orthopnea, wheezing, stridor, hemoptysis GASTROINTESTINAL: Absent: abdominal pain, abdominal distension, nausea,vomiting diarrhea, constipation, melena, hematochezia GENITOURINARY: Absent: dysuria, frequency, urgency, hesitancy, hematuria, flank pain, genital pain MUSCULOSKELETAL: Absent: myalgia, arthralgia, joint swelling, back pain, neck pain SKIN: Absent: rash, itching, pallor HEMATOLOGIC/IMMUNOLOGIC: Absent: easy bleeding, easy bruising, lymphadenopathy, frequent infections ENDOCRINE: Absent: unexplained weight gain, unexplained weight loss, heat intolerance, cold intolerance NEUROLOGIC: Absent: headache, focal weakness or paresthesias, dizziness, unsteady gait, seizure, mental status changes, bladder or bowel incontinence PSYCHIATRIC: Absent: anxiety, depression, suicidal or homicidal ideation, hallucinations. PHYSICAL EXAMINATION Vital Signs - 24 hr 07/09/18 07/09/18 00:19 03:05 Temperature 99.4 F Pulse Rate 131 H Pulse Rate [ 118 H Left Radial] Respiratory 18 18 Rate Blood Pressure 104/31 Blood Pressure 120/78 [Left Arm] O2 Sat by Pulse 100 96 Oximetry (%) GENERAL: Awake, alert, and fully oriented, in no acute distress. HEAD: Normal with no signs of trauma. EYES: PERRLA, EOMI, +icteric sclerae, conjunctiva clear. No lid lag. EARS, NOSE, THROAT: Ears normal, nares patent, oropharynx clear without exudates. Moist mucous membranes. NECK: Normal range of motion, supple without lymphadenopathy, JVD, or masses. LUNGS: Breath sounds equal, clear to auscultation bilaterally. HEART: Regular rate and rhythm, normal S1 and S2 without murmur, rub or gallop. ABDOMEN: Soft, nontender, mildly distended, mild hepatomegaly, normoactive bowel sounds. MUSCULOSKELETAL: Normal range of motion at all joints. No bony deformities or tenderness. No CVA tenderness. UPPER EXTREMITIES: 2+ pulses, warm, well-perfused. No cyanosis. No clubbing. No peripheral edema. LOWER EXTREMITIES: 2+ pulses, warm, well-perfused. No calf tenderness. No peripheral edema. NEUROLOGICAL: Cranial nerves II-XII intact. Normal speech. Normal gait. PSYCHIATRIC: Cooperative. Good eye contact. Appropriate mood and affect. SKIN: Warm, dry, normal turgor, no rashes or lesions. Laboratory Results - last 24 hr 07/09/18 07/09/18 07/09/18 01:10 01:10 01:10 WBC 6.0 RBC 3.41 L Hgb 11.0 L Hct 32.5 L D MCV 95.3 MCH 32.3 MCHC 33.9 RDW 13.5 Plt Count 90 L MPV 9.8 Absolute Neuts (auto) 4.7 Neutrophils % 78.6 Lymphocytes % 15.8 Monocytes % 5.2 Eosinophils % 0.1 Basophils % 0.3 Nucleated RBC % 0 Sodium 132 L Potassium 4.7 D Chloride 93 L Carbon Dioxide 32 Anion Gap 7 L BUN 24 H Creatinine 1.1 Creat Clearance w eGFR > 60 Random Glucose 307 H* D Lactic Acid Calcium 7.9 L Total Bilirubin 8.1 H AST 265 H D ALT 336 H D Alkaline Phosphatase 247 H D Creatine Kinase 471 H Creatine Kinase Index 0.5 CK-MB (CK-2) 2.48 Troponin I 0.05 Total Protein 5.0 L Albumin 2.2 L Lipase 81 Urine Color Kayla Urine Appearance Clear Urine pH 6.0 Ur Specific Caldwell 1.020 Urine Protein Negative Urine Glucose (UA) 3+ H Urine Ketones Trace H Urine Blood Negative Urine Nitrite Negative Urine Bilirubin 4.0 Urine Urobilinogen 4.0 e.u/dl Ur Leukocyte Esterase Negative Stool Occult Blood 07/09/18 07/09/18 01:10 03:30 WBC RBC Hgb Hct MCV MCH MCHC RDW Plt Count MPV Absolute Neuts (auto) Neutrophils % Lymphocytes % Monocytes % Eosinophils % Basophils % Nucleated RBC % Sodium Potassium Chloride Carbon Dioxide Anion Gap BUN Creatinine Creat Clearance w eGFR Random Glucose Lactic Acid 2.4 H* Calcium Total Bilirubin AST ALT Alkaline Phosphatase Creatine Kinase Creatine Kinase Index CK-MB (CK-2) Troponin I Total Protein Albumin Lipase Urine Color Urine Appearance Urine pH Ur Specific Caldwell Urine Protein Urine Glucose (UA) Urine Ketones Urine Blood Urine Nitrite Urine Bilirubin Urine Urobilinogen Ur Leukocyte Esterase Stool Occult Blood Positive ASSESSMENT/PLAN: #Anemia -likely secondary to GI bleeding -stool occult blood positive -IVF started. -Protonix 40mg IV BID. -Reglan 10mg q6h PRN. -Hgb decreased from 11 to 8.6 -Type and screen ordered. -Possible transfusion for acute bleeding or Hgb <7 -GI consult for EGD/colonoscopy. #Near syncopal episode -likely secondary to hypovolemia as patient was sweating profusely due to no AC -Pt denies any LOC and remembers the whole incident -elevated BUN, which is likely due to DHN and hypovolemia -Pt initially presented to the ED with hypotension, and was given 1L IVF with repeat BP at 120s/80s -Orthostatics done and was negative #Alcoholic hepatitis -Pt reports being an alcoholic since he was a teenager and was told by PCP that he needed to discontinue alcohol and start detox -Pt has been on detox for the past 3 days and is on Librium protocol with one more day left. -Within 2 days (compared to 07/08/18), his hepatic panel improved significantly with AST from 697 to 265, ALT from 765 to 336, Alk Phos 329 to 247, Total bili 9.4 to 8.1. -PT and INR ordered. -Maddrey's Discriminate Function score is 19.6 -U/S of liver ordered. -Acute hepatitis panel ordered. -GI consult - Dr. Ashraf #EtOH dependence -CIWA <8 -Patient received Librium in Detox for the past 2 days. -With elevated LFTs, will continue with Ativan 1mg q6h x8 doses to avoid withdrawal symptoms. #Hypocalcemia -Corrected calcium is 9.34 #Hyponatremia -Corrected sodium with hyperglycemia is 135 #DM: uncontrolled -Pt reports controlling diabetes with diet and does report having a big bowl of cereal today and meat with potatoes. -HbA1c ordered. -Sliding scale insulin implemented -BGM monitoring qACHS. #FEN -IV NS (0.9%) at 125ml/hr -routine bmp monitoring -NPO for now #Prophylaxis -pt with possible GI bleed, no ppx at this time #Disposition -admit to obs -full code Visit type - Emergency Visit Emergency Visit: Yes Care time: The patient presented to the Emergency Department on the above date and was hospitalized for further evaluation of their emergent condition. - New Patient This patient is new to me today: Yes Date on this admission: 07/09/18 - Critical Care Critical Care patient: No Hospitalist Screening - Colonoscopy Questionnaire Colonoscopy Questionnaire: Colonoscopy Questionnaire - Patient: 50 - 75 years old and never had a screening colonoscopy: Unknown History of colon or rectal polyps, or CA: Unknown History of IBD, Crohn's disease or UC: Unknown History of abdominal radiation therapy as a child: Unknown - Relative: 1 with colon or rectal CA, or polyps at age 60 or younger: Unknown Colon or rectal CA diagnosed at age 45 or younger: Unknown Multiple relatives with colon or rectal CA: Unknown - Outcome: Screening Result: Negative Screen
[2018-07-09] MEDS ORDERED: PANTOPRAZOLE 40 MG TABLET (FP) ONE (05:57)
[2018-07-09] MEDS ORDERED: chlordiazePOXIDE 5 MG CAPSULE PO SCH (06:00)
[2018-07-09] MEDS ORDERED: chlordiazePOXIDE HCL 25 MG CAPSULE PO PRN (06:13)
[2018-07-09 06:49] LABS: BASO % 0.7 % (0-2.0); EOS % 0.2 % (0-4.5); HEMATOCRIT 25.6 % (35.4-49); HEMOGLOBIN 8.5 GM/dL (11.7-16.9); LYMPH % 29.6 % (8-40); MCH 31.8 pg (25.7-33.7); MCHC 33.2 g/dl (32.0-35.9); MEAN PLT VOLUME 9.1 fl (7.5-11.1); MONO % 5.6 % (3.8-10.2); NEUT % 63.9 % (42.8-82.8); PLATELET COUNT 69 K/MM3 (134-434); RBC 2.67 M/mm3 (4.00-5.60); RDW 13.8 % (11.9-15.9); WHITE BLOOD COUNT 5.8 K/mm3 (4.0-10.0)
--- NOTE | 2018-07-09 06:55 | PN ---
Teaching Attending Note Name of Resident: Felipa Sebastian ATTENDING PHYSICIAN STATEMENT I saw and evaluated the patient. I reviewed the resident's note and discussed the case with the resident. I agree with the resident's findings and plan as documented. SUBJECTIVE: 47 y/o M sent over from rehab after hematemesis and syncopal episode. Patient is an unreliable historian and adds to history with every person. PAtient also c/o left sided abdominal pain and epigastric discomfort for which he took tylenol and ibuprofen. Patient reports prior history of PUD and episode of hematemesis 12 years ago. PMH: DM2, HTN and alcoholism, h/o gastritis OBJECTIVE: Gen: Icteric, A&Ox3, NAD HEENT: icteric sclera, PERRLA, EOMI, MMM CVS: tachycardic, no M/G/R Lungs: CTA Abd: Soft, NT, ND, BS+, hepatomegaly, no mass Ext: Nl, ROM, no Edema, nl tone Skin: no Rash, no jaundice ASSESSMENT AND PLAN: Acute Anemia secondary to GI bleed, most likely UGI vs LGI, trend H&H, IVF, type and screen, protonix and transfuse if hemodynamically unstable or Hgb less than 7. GI consulted stat. Reglan prn. Alc w/d- CIWA protocol, ativan prn DM2, RISS and get Aic R/o viral hepatitis vs alcoholic hepatitis. DVT prophylaxis SCDs only. Problem List - Problems (1) Acute blood loss anemia Code(s): D62 - ACUTE POSTHEMORRHAGIC ANEMIA
[2018-07-09] MEDS ORDERED: LORazepam 2 MG/ML SDV VIAL ONE ×2 (06:59→08:20)
[2018-07-09 07:02] LABS: INR 1.37 (0.83-1.09); PROTHROMBIN TIME (PATIENT) 15.5 SEC (9.7-13.0)
[2018-07-09] MEDS ORDERED: METOCLOPRAMIDE HCL INJECTION 10 MG/2 ML VIAL IVPUSH PRN (07:12)
[2018-07-09] MEDS ORDERED: OCTREOTIDE ACETATE 1,200 MCG in DEXTROSE 5%-WATER - 488 ML IVPB SCH (07:45)
[2018-07-09] MEDS ORDERED: PANTOPRAZOLE SODIUM 80 MG in SODIUM CHLORIDE 100 ML IVPB SCH (07:45)
[2018-07-09] MEDS ORDERED: LORazepam 2 MG/ML SDV VIAL IVPUSH SCH (07:49)
--- NOTE | 2018-07-09 07:57 | PN ---
Teaching Attending Note Name of Resident: Dale Leach ATTENDING PHYSICIAN STATEMENT I saw and evaluated the patient. I reviewed the resident's note and discussed the case with the resident. I agree with the resident's findings and plan as documented. SUBJECTIVE:states he feels much better since arrival to the ER. arrived at [facility] on Monday and was on ETOH detox. yesterday felt dizzy and passed out but felt better after eating something and sitting in front of the AC. said his stools have been intermittently black over the past few days but never BRBPR. saw his PMD 3 months ago where he labs down and was told his cholersterol was high but no medications were started. was never told he had liver problems but told that his drinking could hurt his liver. had episode of bloody emesis 11 years ago and underwent EGD x4 around that time but per him was normal. did not notice his sclera was yellow and denies abdominal distention or bloating. denies CP, SOB, fever, chills, N/V/C/D OBJECTIVE: Last Vital Signs Temp Pulse Resp BP Pulse Ox 99.4 F 118 H 18 120/78 96 07/09/18 00:19 07/09/18 03:05 07/09/18 03:05 07/09/18 03:05 07/09/18 03:05 General NAD HEENT jaundice CV S1 S2 tachy lungs CTA B/L no wheezing/rales/rhonchi Abdomen unable to palpate liver edge. no stigmata of liver disease soft NT/ND Extremities no pedal edema, no tremors no asterixis rectal good rectal tone no hemorrhoids. +black stool ASSESSMENT AND PLAN: 47yo M with PMH continuous ETOH abuse and suspected cirrhosis presented to the ER from [facility] for syncopal episode. On arrival to the ER he was found to have Hgb of 11 and melena 1. Upper GI bleed- high concern for variceal bleeding. FOBT + melena on exam. will start PPI and octreotide ggt. trend hgb Q6H. transfuse as needed. GI consulted will need EGD. will place call to PMD Dr Kendrick in [place] for recent blood work and EGD reports (pt does not recall name of GI doctor as he has not followed up) has received blood transfusions in the past. nothing for several years 2. Acute alcoholic hepatitis- Disc function score 19. LFT trending down from [facility] admission. abdominal u/s. hepatitis panel. Gi consulted. 3. Syncope- likely due to hypovolemia in setting of acute GI bleed. cardiac monitoring. transfuse prn. IVF and volume resuscitation 4. ETOH withdrawal- CIWA 3. switch ativan to Q8H for wtihdrawal symptoms. banana bag. will d/w pt if desires inpatient rehab when medically optimized 5. thrombocytopenia- due to cirrhosis. trending down. will transfuse platelets once <50. 6. DM-A1c 7.1. not on medications. bgm Q6H 7. DVT ppx- SCD 8. Pt requires continuous cardiac monitoring and frequent lab draws. will transfer to MICU. spoke with GI, MICU resident, ER and ANIMAL ANATOMY TEACHER The care of this patient involved high complexity decision making to prevent further life threatening deterioration of the patient's condition and/or to evaluate & treat vital organ system(s) failure or risk of failure. 40 mins
[2018-07-09] MEDS ORDERED: PANTOPRAZOLE SODIUM 160 MG in SODIUM CHLORIDE 290 ML IVPB SCH (08:00)
[2018-07-09] MEDS: INSULIN SLIDING SCALE (NOVOLOG) 1 VIAL SQ SCH ×4 (08:32→22:30)
[2018-07-09 08:39] LABS: HEMATOCRIT 26.6 % (35.4-49); HEMOGLOBIN 8.9 GM/dL (11.7-16.9); MCH 32.1 pg (25.7-33.7); MCHC 33.5 g/dl (32.0-35.9); MEAN CELL VOLUME 95.8 fl (80-96); MEAN PLT VOLUME 9.8 fl (7.5-11.1); PLATELET COUNT 83 K/MM3 (134-434); RBC 2.78 M/mm3 (4.00-5.60); RDW 13.8 % (11.9-15.9); WHITE BLOOD COUNT 6.5 K/mm3 (4.0-10.0)
[2018-07-09] MEDS: LORazepam 2 MG/ML SDV VIAL IVPUSH SCH ×2 (09:13→16:22)
[2018-07-09] MEDS: MUPIROCIN 2% TOPICAL OINTMENT FOR DECOLONIZATION NS SCH ×2 (09:25→23:00)
--- NOTE | 2018-07-09 10:19 | EKG ---
Test Reason : Blood Pressure : / mmHG Vent. Rate : 124 BPM Atrial Rate : 124 BPM P-R Int : 124 ms QRS Dur : 084 ms QT Int : 302 ms P-R-T Axes : 060 -07 025 degrees QTc Int : 433 ms SINUS TACHYCARDIA NONSPECIFIC ST ABNORMALITY ABNORMAL ECG WHEN COMPARED WITH ECG OF 06-JUL-2018 17:01, NO SIGNIFICANT CHANGE WAS FOUND Confirmed by ZOE ROBLES MD ([id number]) on 07/09/2018 10:18:47 AM Referred By: Confirmed By:ZOE ROBLES MD
[2018-07-09 12:15] VITALS: BMI 30.2
[2018-07-09] MEDS ORDERED: EPINEPHrine 1:10,000 (P-F SYR) 1 MG/10 ML DISP.SYRIN ONE (12:59)
--- NOTE | 2018-07-09 13:24 | PROC ---
Endoscopy Procedure Endoscopy procedure completed. Please see scanned procedure report. Severe esophagitis with ulcerations in the distal esophagus was found. Otherwise normal EGD. Random biopsies were taken from the 2nd portion of the duodenum, and the stomach. No NSAIDs Soft diet Protonix po BID x 4 weeks Liquid carafate 1 gm po qid x 15 days Viral serology Repeat EGD in 4 weeks Colonoscopy as OP if no further melena, or hematochezia. D/C ETOH discussed with the patient Follow biopsies as OP in 1 week.
[2018-07-09] MEDS ORDERED: SODIUM CHLORIDE 500 ML IV STA (14:09)
[2018-07-09] MEDS ORDERED: PT OWN MED DRAWER 7, Y5N ONE ×2 (16:17→17:49)
[2018-07-09] MEDS: SUCRALFATE 1 GM/10 ML UNIT DOSE CUPS PO SCH ×3 (16:23→23:00)
[2018-07-09] MEDS ORDERED: INSULIN (NOVOLOG) ASPART 100 UNITS/ML 10ML VIAL ONE (16:25)
--- NOTE | 2018-07-09 16:33 | CONSULT ---
Consultation: REQUESTING PROVIDER: CONSULT REQUEST: We have been asked to medically evaluate this patient for symptomatic anemia HISTORY OF PRESENT ILLNESS: Patient is a 47 y/o male with a history of alcohol dependence, GERD, DM type 2 who presents for symptomatic anemia. Patient has been feeling light headed and tired for the past week. For the last few days he has been attending [facility], where he told them his symptoms and the had him come to the ED. His Hemoglobin was found to be 11 and dropped to 8.9. Patient has history of GI bleed 12 years ago and was told it was due to his drinking. he received " a lot of blood" at that time. Patient denies change in diet. Patient denies melena, hematochezia, or hemetemesis. Patient had an EGD done that showed severe esophagitis and ulcerations in the distal esophagus. REVIEW OF SYSTEMS: Absent: fever, chills, diaphoresis, generalized weakness, malaise, loss of appetite, weight change HEENT: Absent: rhinorrhea, nasal congestion, throat pain, throat swelling, difficulty swallowing, mouth swelling, ear pain, eye pain, visual changes CARDIOVASCULAR: Absent: chest pain, syncope, palpitations, irregular heart rate, lightheadedness , peripheral edema RESPIRATORY: Absent: cough, shortness of breath, dyspnea with exertion, orthopnea, wheezing, stridor, hemoptysis GASTROINTESTINAL: Absent: abdominal pain, abdominal distension, nausea,vomiting diarrhea, constipation, melena, hematochezia GENITOURINARY: Absent: dysuria, frequency, urgency, hesitancy, hematuria, flank pain, genital pain MUSCULOSKELETAL: Absent: myalgia, arthralgia, joint swelling, back pain, neck pain NEUROLOGIC: Absent: headache, focal weakness or paresthesias, dizziness, unsteady gait, seizure, mental status changes, bladder or bowel incontinence PSYCHIATRIC: Absent: anxiety, depression, suicidal or homicidal ideation, hallucinations. PHYSICAL EXAMINATION Vital Signs Temperature 98.7 F 07/09/18 14:00 Pulse Rate 95 H 07/09/18 14:00 Respiratory Rate 22 07/09/18 14:00 Blood Pressure 96/70 07/09/18 14:00 O2 Sat by Pulse Oximetry (%) 100 07/09/18 14:27 GENERAL: asleep LUNGS: Breath sounds equal, clear to auscultation bilaterally. HEART: Regular rate and rhythm, ABDOMEN: Soft, nontender, not distended, normoactive bowel sounds, no guarding MUSCULOSKELETAL: Normal range of motion at all joints. No bony deformities or tenderness. No CVA tenderness. LOWER EXTREMITIES: 2+ pulses, warm, well-perfused. No calf tenderness. No peripheral edema. SKIN: Warm, dry, normal turgor, no rashes or lesions noted. CBC, BMP 07/09/18 08:30 07/09/18 01:10 Active Medications Chlorhexidine Gluconate (Hibiclens For Decolonization -) 1 applic TP HS [facility]UNIOR Sodium Chloride (Normal Saline -) 1,000 mls @ 125 mls/hr IV ASDIR [facility] Last Admin: 07/09/18 05:54 Dose: 125 mls/hr Insulin Aspart (Novolog Vial Sliding Scale -) 1 vial SQ ACHS [facility]; Protocol Last Admin: 07/09/18 13:44 Dose: Not Given Lorazepam (Ativan Injection -) 1 mg IVPUSH Q8H [facility] Stop: 07/11/18 01:01 Last Admin: 07/09/18 09:13 Dose: Not Given Mupirocin (Bactroban Ointment (For Decolonization) -) 1 applic NS BID [facility] Stop: 07/14/18 09:59 Last Admin: 07/09/18 09:25 Dose: Not Given Pantoprazole Sodium (Protonix -) 40 mg PO BID [facility] Sucralfate (Carafate Oral Suspension -) 1 gm PO QID [facility] ASSESSMENT/PLAN: Patient is a 47 y/o male with a history of alcohol dependence, GERD, DM type 2 who presents for symptomatic anemia. #Upper GI bleed 2/2 Esophagitis and ulcerations in distal esophagus - protonix 40 mg po BID 4 weeks - liquid carfarate qid 15 days - soft diet - repeat EGD in 4 weeks, f/u biopsies as an outpatient - f/u CBC for 9 pm - 8.9 > 7.7, f/u FOBT results - patient hemodynamically stable, asymptomatic #DM - SS - diabetic diet consult #alcohol dependence - continue Librium taper #DVT ppx - SCD's applied - consider anticoagulation once HgB stabalized #FEN - soft diet Dispo: We will continue to follow the patient. Thank you for this consultative opportunity. Visit type - Emergency Visit Emergency Visit: No - New Patient This patient is new to me today: Yes Date on this admission: 07/09/18 - Critical Care Critical Care patient: Yes Total Critical Care Time (in minutes): 50 Critical Care Statement: The care of this patient involved high complexity decision making to prevent further life threatening deterioration of the patient 's condition and/or to evaluate & treat vital organ system(s) failure or risk of failure.
[2018-07-09 16:38] LABS: HEMATOCRIT 23.6 % (35.4-49); HEMOGLOBIN 7.7 GM/dL (11.7-16.9); MCH 32.3 pg (25.7-33.7); MCHC 32.9 g/dl (32.0-35.9); MEAN CELL VOLUME 98.1 fl (80-96); MEAN PLT VOLUME 9.7 fl (7.5-11.1); PLATELET COUNT 81 K/MM3 (134-434); RDW 13.6 % (11.9-15.9); WHITE BLOOD COUNT 4.5 K/mm3 (4.0-10.0)
[2018-07-09] MEDS ORDERED: chlordiazePOXIDE HCL 10 MG CAPSULE PO SCH (17:00)
--- NOTE | 2018-07-09 18:04 | PN ---
Physical Exam: SUBJECTIVE: Patient seen and examined at bedside. Pt states he feels well at this time. OBJECTIVE: Vital Signs Period Temp Pulse Resp BP Sys/Brothers Pulse Ox Last 24 Hr 97.8 F-99.4 F 95-131 16-22 88-127/31-81 96-100 Gen: NAD lying in bed. nondiaphoretic. HEENT: NCAT, EOMI, scleral icterus Neck: supple, no jvd Chest: rrr, normal s1s2, no mrg Pulm: cta b/l Abd: soft, nontender Ext: no clubbing observed. No asterixis Laboratory Results - last 24 hr 07/09/18 07/09/18 07/09/18 01:10 01:10 01:10 WBC 6.0 RBC 3.41 L Hgb 11.0 L Hct 32.5 L D MCV 95.3 MCH 32.3 MCHC 33.9 RDW 13.5 Plt Count 90 L MPV 9.8 Absolute Neuts (auto) 4.7 Neutrophils % 78.6 Lymphocytes % 15.8 Monocytes % 5.2 Eosinophils % 0.1 Basophils % 0.3 Nucleated RBC % 0 PT with INR INR PTT (Actin FS) Sodium 132 L Potassium 4.7 D Chloride 93 L Carbon Dioxide 32 Anion Gap 7 L BUN 24 H Creatinine 1.1 Creat Clearance w eGFR > 60 POC Glucometer Random Glucose 307 H* D Hemoglobin A1c % Lactic Acid Calcium 7.9 L Total Bilirubin 8.1 H AST 265 H D ALT 336 H D Alkaline Phosphatase 247 H D Creatine Kinase 471 H Creatine Kinase Index 0.5 CK-MB (CK-2) 2.48 Troponin I 0.05 Total Protein 5.0 L Albumin 2.2 L Lipase 81 Urine Color Kayla Urine Appearance Clear Urine pH 6.0 Ur Specific [place] 1.020 Urine Protein Negative Urine Glucose (UA) 3+ H Urine Ketones Trace H Urine Blood Negative Urine Nitrite Negative Urine Bilirubin 4.0 Urine Urobilinogen 4.0 e.u/dl Ur Leukocyte Esterase Negative Stool Occult Blood Blood Type Antibody Screen 07/09/18 07/09/18 07/09/18 01:10 03:30 05:42 WBC 5.8 RBC 2.73 L Hgb 8.8 L Hct 26.3 L D MCV 96.4 H MCH 32.4 MCHC 33.6 RDW 13.6 Plt Count 79 L MPV 9.2 Absolute Neuts (auto) 3.8 Neutrophils % 66.5 Lymphocytes % 27.2 D Monocytes % 5.6 Eosinophils % 0.2 D Basophils % 0.5 Nucleated RBC % 0 PT with INR INR PTT (Actin FS) Sodium Potassium Chloride Carbon Dioxide Anion Gap BUN Creatinine Creat Clearance w eGFR POC Glucometer Random Glucose Hemoglobin A1c % Lactic Acid 2.4 H* Calcium Total Bilirubin AST ALT Alkaline Phosphatase Creatine Kinase Creatine Kinase Index CK-MB (CK-2) Troponin I Total Protein Albumin Lipase Urine Color Urine Appearance Urine pH Ur Specific [place] Urine Protein Urine Glucose (UA) Urine Ketones Urine Blood Urine Nitrite Urine Bilirubin Urine Urobilinogen Ur Leukocyte Esterase Stool Occult Blood Positive Blood Type Antibody Screen 07/09/18 07/09/18 07/09/18 05:42 05:42 06:40 WBC 5.8 RBC 2.67 L Hgb 8.5 L Hct 25.6 L MCV 96.0 MCH 31.8 MCHC 33.2 RDW 13.8 Plt Count 69 L MPV 9.1 Absolute Neuts (auto) 3.7 Neutrophils % 63.9 Lymphocytes % 29.6 Monocytes % 5.6 Eosinophils % 0.2 Basophils % 0.7 Nucleated RBC % 0 PT with INR INR PTT (Actin FS) Sodium Potassium Chloride Carbon Dioxide Anion Gap BUN Creatinine Creat Clearance w eGFR POC Glucometer Random Glucose Hemoglobin A1c % 7.1 H D Lactic Acid Calcium Total Bilirubin AST ALT Alkaline Phosphatase Creatine Kinase Creatine Kinase Index CK-MB (CK-2) Troponin I Total Protein Albumin Lipase Urine Color Urine Appearance Urine pH Ur Specific [place] Urine Protein Urine Glucose (UA) Urine Ketones Urine Blood Urine Nitrite Urine Bilirubin Urine Urobilinogen Ur Leukocyte Esterase Stool Occult Blood Blood Type O POSITIVE Antibody Screen Negative 07/09/18 07/09/18 07/09/18 06:40 06:40 06:43 WBC RBC Hgb Hct MCV MCH MCHC RDW Plt Count MPV Absolute Neuts (auto) Neutrophils % Lymphocytes % Monocytes % Eosinophils % Basophils % Nucleated RBC % PT with INR 15.50 H INR 1.37 H PTT (Actin FS) 38.0 H Sodium Potassium Chloride Carbon Dioxide Anion Gap BUN Creatinine Creat Clearance w eGFR POC Glucometer Random Glucose Hemoglobin A1c % Lactic Acid 1.1 Calcium Total Bilirubin AST ALT Alkaline Phosphatase Creatine Kinase Creatine Kinase Index CK-MB (CK-2) Troponin I Total Protein Albumin Lipase Urine Color Urine Appearance Urine pH Ur Specific [place] Urine Protein Urine Glucose (UA) Urine Ketones Urine Blood Urine Nitrite Urine Bilirubin Urine Urobilinogen Ur Leukocyte Esterase Stool Occult Blood Blood Type O POSITIVE Antibody Screen 07/09/18 07/09/18 07/09/18 08:24 08:30 08:30 WBC 6.5 RBC 2.78 L Hgb 8.9 L Hct 26.6 L MCV 95.8 MCH 32.1 MCHC 33.5 RDW 13.8 Plt Count 83 L D MPV 9.8 Absolute Neuts (auto) Neutrophils % Lymphocytes % Monocytes % Eosinophils % Basophils % Nucleated RBC % PT with INR INR PTT (Actin FS) Sodium Potassium Chloride Carbon Dioxide Anion Gap BUN Creatinine Creat Clearance w eGFR POC Glucometer [phone] Random Glucose Hemoglobin A1c % Lactic Acid Calcium Total Bilirubin AST ALT Alkaline Phosphatase Creatine Kinase Creatine Kinase Index CK-MB (CK-2) Troponin I 0.04 Total Protein Albumin Lipase Urine Color Urine Appearance Urine pH Ur Specific [place] Urine Protein Urine Glucose (UA) Urine Ketones Urine Blood Urine Nitrite Urine Bilirubin Urine Urobilinogen Ur Leukocyte Esterase Stool Occult Blood Blood Type Antibody Screen 07/09/18 07/09/18 07/09/18 12:06 16:00 16:06 WBC 4.5 RBC 2.40 L Hgb 7.7 L Hct 23.6 L MCV 98.1 H MCH 32.3 MCHC 32.9 RDW 13.6 Plt Count 81 L MPV 9.7 Absolute Neuts (auto) Neutrophils % Lymphocytes % Monocytes % Eosinophils % Basophils % Nucleated RBC % PT with INR INR PTT (Actin FS) Sodium Potassium Chloride Carbon Dioxide Anion Gap BUN Creatinine Creat Clearance w eGFR POC Glucometer [phone] Random Glucose Hemoglobin A1c % Lactic Acid Calcium Total Bilirubin AST ALT Alkaline Phosphatase Creatine Kinase Creatine Kinase Index CK-MB (CK-2) Troponin I Total Protein Albumin Lipase Urine Color Urine Appearance Urine pH Ur Specific [place] Urine Protein Urine Glucose (UA) Urine Ketones Urine Blood Urine Nitrite Urine Bilirubin Urine Urobilinogen Ur Leukocyte Esterase Stool Occult Blood Blood Type Antibody Screen Active Medications Generic Name Dose Route Start Last Admin Trade Name Freq PRN Reason Stop Dose Admin Chlorhexidine Gluconate 1 applic 07/09/18 22:00 Hibiclens For Decolonization - TP HS YUNIOR Insulin Aspart 1 vial 07/09/18 07:00 07/09/18 16:28 Novolog Vial Sliding Scale - SQ 4 unit ACHS YUNIOR Administration Protocol Lorazepam 1 mg 07/09/18 09:00 07/09/18 16:22 Ativan Injection - IVPUSH 07/11/18 01:01 1 mg Q8H YUNIOR Administration Mupirocin 1 applic 07/09/18 10:00 07/09/18 09:25 Bactroban Ointment (For Decolonization) - NS 07/14/18 09:59 Not Given BID YUNIOR Pantoprazole Sodium 40 mg 07/09/18 22:00 Protonix - PO BID YUNIOR Sucralfate 1 gm 07/09/18 14:00 07/09/18 17:37 Carafate Oral Suspension - PO 1 gm QID YUNIOR Administration ASSESSMENT/PLAN: Pt is a 47 y/o M with PMH DM, EtOH abuse, GERD, EGD with gastric ulcer 12 y/a who presented to ED from [facility] for near syncopy. #Anemia -likely secondary to GI bleeding -stool occult blood positive -IVF started -Protonix 40mg IV BID -Reglan 10mg q6h PRN -Hgb decreased from 11 -> 8.8 -> 8.6 -> 7.7 -Type and screen ordered -Possible transfusion for acute bleeding or Hgb <7 -GI consult for EGD/colonoscopy -Per GI: Severe esophagitis with ulcerations in the distal esophagus was found. Otherwise normal EGD. Random biopsies were taken from the 2nd portion of the duodenum, and the stomach. #Near syncopal episode -likely secondary to hypovolemia as patient was sweating profusely due to no AC -Pt denies any LOC and remembers the whole incident -elevated BUN, which is likely due to DHN and hypovolemia and GIB -Pt initially presented to the ED with hypotension, and was given 1L IVF with repeat BP at 120s/80s -Orthostatics negative #Alcoholic hepatitis -Pt reports being an alcoholic since he was a teenager and was told by PCP that he needed to discontinue alcohol and start detox -Pt has been on detox for the past 3 days and is on Librium protocol with one more day left. -Within 2 days (compared to 07/08/18), his hepatic panel improved significantly with AST from 697 to 265, ALT from 765 to 336, Alk Phos 329 to 247, Total bili 9.4 to 8.1. -PT and INR ordered. -Maddrey's Discriminate Function score is 19.6 -U/S of liver: hepatomegally with fatty infiltrate, thick walled-gall bladder without cholelithiasis -Acute hepatitis panel ordered. -GI consult - Dr. Ashraf #EtOH dependence -CIWA <8 -Patient received Librium in Detox for the past 2 days. -With elevated LFTs, will continue with Ativan 1mg q6h x8 doses to avoid withdrawal symptoms. #Pseudohypocalcemia -Corrected calcium is 9.34 #Pseudohyponatremia -Corrected sodium with hyperglycemia is 135 #DM: uncontrolled -Pt reports controlling diabetes with diet and does report having a big bowl of cereal today and meat with potatoes. -HbA1c ordered. -Sliding scale insulin implemented -BGM monitoring qACHS. #FEN -IV NS (0.9%) at 125ml/hr -routine bmp monitoring -NPO for now #Prophylaxis -pt with possible GI bleed, no ppx at this time #Disposition -admit to obs -full code Visit type - Emergency Visit Emergency Visit: No - New Patient This patient is new to me today: Yes Date on this admission: 07/09/18 - Critical Care Critical Care patient: Yes Total Critical Care Time (in minutes): 35 Critical Care Statement: The care of this patient involved high complexity decision making to prevent further life threatening deterioration of the patient 's condition and/or to evaluate & treat vital organ system(s) failure or risk of failure. - Discharge Referral Referred to [facility] Med [facility].: No
[2018-07-09 21:34] LABS: HEMATOCRIT 23.5 % (35.4-49); HEMOGLOBIN 7.7 GM/dL (11.7-16.9); MCH 32.1 pg (25.7-33.7); MCHC 32.6 g/dl (32.0-35.9); MEAN CELL VOLUME 98.5 fl (80-96); MEAN PLT VOLUME 9.2 fl (7.5-11.1); PLATELET COUNT 85 K/MM3 (134-434); RBC 2.39 M/mm3 (4.00-5.60); RDW 13.3 % (11.9-15.9); WHITE BLOOD COUNT 4.4 K/mm3 (4.0-10.0)
[2018-07-09] MEDS: CHLORHEXIDINE GLUCONATE 4% CLEANSER FOR DECOLONIZATION TP SCH (22:00)
[2018-07-09] MEDS: PANTOPRAZOLE 40 MG TABLET (FP) PO SCH (23:00)
[2018-07-10] MEDS ORDERED: PT OWN MED DRAWER 7, Y5N ONE ×2 (00:23→08:50)
[2018-07-10] MEDS: LORazepam 2 MG/ML SDV VIAL IVPUSH SCH (00:25)
[2018-07-10 06:06] LABS: HEP.C VIRUS AB 0.1 s/co ratio (0.0-0.9)
[2018-07-10] MEDS: INSULIN SLIDING SCALE (NOVOLOG) 1 VIAL SQ SCH ×3 (06:16→16:58)
[2018-07-10 06:50] LABS: HEMATOCRIT 22.5 % (35.4-49); HEMOGLOBIN 7.3 GM/dL (11.7-16.9); MCH 32.1 pg (25.7-33.7); MCHC 32.4 g/dl (32.0-35.9); MEAN CELL VOLUME 99.1 fl (80-96); MEAN PLT VOLUME 9.3 fl (7.5-11.1); PLATELET COUNT 86 K/MM3 (134-434); RBC 2.27 M/mm3 (4.00-5.60); RDW 13.1 % (11.9-15.9); WHITE BLOOD COUNT 3.9 K/mm3 (4.0-10.0)
[2018-07-10 07:09] LABS: ANION GAP 4 MMOL/L (8-16); BLOOD UREA NITROGEN 19 mg/dL (7-18); CALCIUM 7.5 mg/dL (8.5-10.1); CHLORIDE 111 mmol/L (98-107); CO2 31 mmol/L (21-32); GLUCOSE,RANDOM 130 mg/dL (74-106); MAGNESIUM 2.1 mg/dL (1.8-2.4); POTASSIUM 3.9 mmol/L (3.5-5.1); SODIUM 146 mmol/L (136-145)
[2018-07-10 07:12] LABS: ALK PHOS 148 U/L (45-117); BILIRUBIN,TOTAL 5.5 mg/dL (0.2-1.0); CREATININE 0.7 mg/dL (0.7-1.3); PHOSPHOROUS 2.6 mg/dL (2.5-4.9); SGOT/AST 132 U/L (15-37); SGPT/ALT 206 U/L (12-78); TOT PROT 4.4 g/dl (6.4-8.2)
--- NOTE | 2018-07-10 09:14 | PN ---
Teaching Attending Note Name of Resident: Felipa Sebastian ATTENDING PHYSICIAN STATEMENT I saw and evaluated the patient. I reviewed the resident's note and discussed the case with the resident. I agree with the resident's findings and plan as documented with exceptions below. SUBJECTIVE: Patient seen and examined. No nausea, vomiting, abdominal pain or dizziness. Tolerating diet well. No tremors anxiety or new concerns. 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 OBJECTIVE: Vital Signs Period Temp Pulse Resp BP Sys/Brothers Pulse Ox Last 24 Hr 97.8 F-99.1 F 92-116 14-22 85-121/54-73 96-100 Intake & Output 07/07/18 07/08/18 07/09/18 07/10/18 23:59 23:59 23:59 23:59 Intake Total 1725 Output Total 1000 Balance 725 Weight 205 lb General: sitting in bed in no acute distress, positive icterus Abdomen: soft, obese, NT throughout, positive bowel sounds, unable to appreciate hepatosplenomegaly on exam Chest: CTAB, no rales or wheezing Extremities: no edema, tremors or asterexis noted, positive pulses Home Medications Medication Instructions Recorded NK [No Known Home Medication] 07/09/18 Active Medications Chlorhexidine Gluconate (Hibiclens For Decolonization -) 1 applic TP HS [facility] Last Admin: 07/09/18 22:00 Dose: 1 applic Insulin Aspart (Novolog Vial Sliding Scale -) 1 vial SQ [facility]; Protocol Last Admin: 07/10/18 06:16 Dose: Not Given Lorazepam (Ativan Injection -) 1 mg IVPUSH Q8H [facility] Stop: 07/11/18 01:01 Last Admin: 07/10/18 00:25 Dose: 1 mg Mupirocin (Bactroban Ointment (For Decolonization) -) 1 applic NS BID [facility] Stop: 07/14/18 09:59 Last Admin: 07/09/18 23:00 Dose: 1 appful Pantoprazole Sodium (Protonix -) 40 mg PO BID [facility] Last Admin: 07/09/18 23:00 Dose: 40 mg Sucralfate (Carafate Oral Suspension -) 1 gm PO QID [facility] Last Admin: 07/09/18 23:00 Dose: 1 gm Laboratory Results - last 24 hr 07/09/18 07/09/18 07/09/18 05:42 06:43 08:30 WBC RBC Hgb Hct MCV MCH MCHC RDW Plt Count MPV Sodium Potassium Chloride Carbon Dioxide Anion Gap BUN Creatinine Creat Clearance w eGFR POC Glucometer Random Glucose Calcium Phosphorus Magnesium Total Bilirubin AST ALT Alkaline Phosphatase Total Protein Albumin Stool Occult Blood Hepatitis A IgM Ab Negative Hep Bs Antigen Negative Hep B Core IgM Ab Negative Hepatitis C Antibody 0.1 Blood Type O POSITIVE Crossmatch See Detail 07/09/18 07/09/18 07/09/18 12:06 16:00 16:06 WBC 4.5 RBC 2.40 L Hgb 7.7 L Hct 23.6 L MCV 98.1 H MCH 32.3 MCHC 32.9 RDW 13.6 Plt Count 81 L MPV 9.7 Sodium Potassium Chloride Carbon Dioxide Anion Gap BUN Creatinine Creat Clearance w eGFR POC Glucometer [phone] Random Glucose Calcium Phosphorus Magnesium Total Bilirubin AST ALT Alkaline Phosphatase Total Protein Albumin Stool Occult Blood Hepatitis A IgM Ab Hep Bs Antigen Hep B Core IgM Ab Hepatitis C Antibody Blood Type Crossmatch 07/09/18 07/09/18 07/10/18 17:13 21:00 05:30 WBC 4.4 3.9 L RBC 2.39 L 2.27 L Hgb 7.7 L 7.3 L Hct 23.5 L 22.5 L MCV 98.5 H 99.1 H MCH 32.1 32.1 MCHC 32.6 32.4 RDW 13.3 13.1 Plt Count 85 L 86 L MPV 9.2 9.3 Sodium Potassium Chloride Carbon Dioxide Anion Gap BUN Creatinine Creat Clearance w eGFR POC Glucometer Random Glucose Calcium Phosphorus Magnesium Total Bilirubin AST ALT Alkaline Phosphatase Total Protein Albumin Stool Occult Blood Positive Hepatitis A IgM Ab Hep Bs Antigen Hep B Core IgM Ab Hepatitis C Antibody Blood Type Crossmatch 07/10/18 05:30 WBC RBC Hgb Hct MCV MCH MCHC RDW Plt Count MPV Sodium 146 H D Potassium 3.9 Chloride 111 H D Carbon Dioxide 31 Anion Gap 4 L BUN 19 H Creatinine 0.7 Creat Clearance w eGFR > 60 POC Glucometer Random Glucose 130 H D Calcium 7.5 L Phosphorus 2.6 Magnesium 2.1 Total Bilirubin 5.5 H D AST 132 H D ALT 206 H D Alkaline Phosphatase 148 H D Total Protein 4.4 L Albumin 2.0 L Stool Occult Blood Hepatitis A IgM Ab Hep Bs Antigen Hep B Core IgM Ab Hepatitis C Antibody Blood Type Crossmatch ASSESSMENT AND PLAN: 47yo M with PMH continuous ETOH abuse and suspected cirrhosis presented to the ER from [facility] for syncopal episode. On arrival to the ER he was found to have Hgb of 11 and melena -Acute blood loss anemia -Severe esophagitis with ulceration -Near syncope, likely from GI bleed/anemia -Hypotension, hypovolumia/GI bleed, overall improved now -Acute alcoholic hepatitis -ETOH dependence -Thrombocytopenia, suspect ETOH related bone marrow suppression+/- splenic sequestration -NIDDM Plan: H/h low but stable over 24 hours. Monitor for now. Transfuse 1 unit PRBC. Continue IVF. GI input noted. Protonix 40 mg BID x 4 weeks, sucralfate x 15 days, Alcohol cessation counseling. LFTs continue to improve. Liver US noted. No clinical concerns for withdrawal. Change ativan to PO once daily to taper off over 24 hours. A1c 7.1, ISS for now. PO per GI. Reports being on metformin in the past. Resume on d/c based on blood sugar readings and overall clinical status. DVTPPX with SCDs Plan discussed with patient in detail, all questions answered. The care of this patient involved high complexity decision making to prevent further life threatening deterioration of the patient's condition and/or to evaluate & treat vital organ system(s) failure or risk of failure. 40 mins
[2018-07-10] MEDS: SUCRALFATE 1 GM/10 ML UNIT DOSE CUPS PO SCH ×4 (10:45→22:00)
[2018-07-10] MEDS: PANTOPRAZOLE 40 MG TABLET (FP) PO SCH ×2 (10:45→22:00)
[2018-07-10] MEDS: LORazepam 1 MG TABLET PO SCH (10:55)
[2018-07-10] MEDS: MUPIROCIN 2% TOPICAL OINTMENT FOR DECOLONIZATION NS SCH ×2 (10:56→22:00)
--- NOTE | 2018-07-10 11:57 | PN ---
Physical Exam: SUBJECTIVE: Patient is a 47 y/o male with a history of alcohol dependence, GERD, DM type 2 who is admitted for GI bleed. Patient had an episode of melena overnight. Denies diarrhea or hematemesis. No acute events. OBJECTIVE: Vital Signs Temperature 98.8 F 07/10/18 06:00 Pulse Rate 95 H 07/10/18 06:00 Respiratory Rate 14 07/10/18 09:00 Blood Pressure 105/67 07/10/18 06:00 O2 Sat by Pulse Oximetry (%) 100 07/10/18 09:00 GENERAL: jaundice on presentation, alert, awake, oriented LUNGS: Breath sounds equal, clear to auscultation bilaterally HEART: Regular rate and rhythm, ABDOMEN: Soft, nontender, not distended, normoactive bowel sounds, no guarding MUSCULOSKELETAL: Normal range of motion at all joints. No bony deformities or tenderness. No CVA tenderness. LOWER EXTREMITIES: 2+ pulses, warm, well-perfused. No calf tenderness. No peripheral edema. SKIN: Warm, dry, normal turgor, no rashes or lesions noted. CBC, BMP 07/10/18 05:30 07/10/18 05:30 Active Medications Chlorhexidine Gluconate (Hibiclens For Decolonization -) 1 applic TP HS [facility] Last Admin: 07/09/18 22:00 Dose: 1 applic Insulin Aspart (Novolog Vial Sliding Scale -) 1 vial SQ ACHS [facility]; Protocol Last Admin: 07/10/18 06:16 Dose: Not Given Lorazepam (Ativan -) 1 mg PO DAILY [facility] Stop: 07/11/18 10:01 Last Admin: 07/10/18 10:55 Dose: 1 mg Mupirocin (Bactroban Ointment (For Decolonization) -) 1 applic NS BID [facility] Stop: 07/14/18 09:59 Last Admin: 07/10/18 10:56 Dose: 1 appful Pantoprazole Sodium (Protonix -) 40 mg PO BID [facility] Last Admin: 07/10/18 10:45 Dose: 40 mg Sucralfate (Carafate Oral Suspension -) 1 gm PO QID [facility] Last Admin: 07/10/18 10:45 Dose: 1 gm ASSESSMENT/PLAN: Patient is a 47 y/o male with a history of alcohol dependence, GERD, DM type 2 who is admitted for GI bleed and symptomatic anemia. GI Upper GI bleed 2/2 Esophagitis and ulcerations in distal esophagus - protonix 40 mg po BID 4 weeks - liquid carfarate qid 15 days - soft diet - repeat EGD in 4 weeks, f/u biopsies as an outpatient - repeat FOBT + - hgb 7.1, repeat CBC @ 1 - consider transfusion hgb < 7 - patient hemodynamically stable, asymptomatic - f/u Dr. Ashraf alcohol dependence - AST/ALT trending down - ativan 1mg q8h prn for signs of withdrawl Endocrinology DM - SS - diabetic diet consult Hemetology DVT ppx - SCD's applied - consider anticoagulation once HgB stabalized FEN - soft diet, diabetic Dispo: transfer to med surg Visit type - Emergency Visit Emergency Visit: No - New Patient This patient is new to me today: No - Critical Care Critical Care patient: Yes Total Critical Care Time (in minutes): 45 Critical Care Statement: The care of this patient involved high complexity decision making to prevent further life threatening deterioration of the patient 's condition and/or to evaluate & treat vital organ system(s) failure or risk of failure.
--- NOTE | 2018-07-10 12:48 | PN ---
Teaching Attending Note Name of Resident: Joanna Ruiz ATTENDING PHYSICIAN STATEMENT I saw and evaluated the patient. I reviewed the resident's note and discussed the case with the resident. I agree with the resident's findings and plan as documented. SUBJECTIVE: Pt seen and examined in the ICU. No further bleeding. Tolerated soft diet. Denies abdominal pain. No nausea or vomiting. OBJECTIVE: Vital Signs Period Temp Pulse Resp BP Sys/Brothers Pulse Ox Last 24 Hr 98.3 F-98.8 F 83-109 14-22 85-121/54-74 100-100 Intake & Output 07/07/18 07/08/18 07/09/18 07/10/18 23:59 23:59 23:59 23:59 Intake Total 1725 Output Total 1000 Balance 725 Weight 92.986 kg Gen: NAD at rest Heart: RRR Lung: decreased breath sounds at the bases Abd: soft, nontender Ext: no edema CBC, BMP 07/10/18 05:30 07/10/18 05:30 Active Medications Chlorhexidine Gluconate (Hibiclens For Decolonization -) 1 applic TP HS [facility] Last Admin: 07/09/18 22:00 Dose: 1 applic Sodium Chloride (1/2 Normal Saline) 1,000 mls @ 75 mls/hr IV ASDIR [facility] Insulin Aspart (Novolog Vial Sliding Scale -) 1 vial SQ ACHS [facility]; Protocol Last Admin: 07/10/18 12:27 Dose: 2 unit Lorazepam (Ativan -) 1 mg PO DAILY [facility] Stop: 07/11/18 10:01 Last Admin: 07/10/18 10:55 Dose: 1 mg Mupirocin (Bactroban Ointment (For Decolonization) -) 1 applic NS BID [facility] Stop: 07/14/18 09:59 Last Admin: 07/10/18 10:56 Dose: 1 appful Pantoprazole Sodium (Protonix -) 40 mg PO BID [facility] Last Admin: 07/10/18 10:45 Dose: 40 mg Sucralfate (Carafate Oral Suspension -) 1 gm PO QID [facility] Last Admin: 07/10/18 10:45 Dose: 1 gm ASSESSMENT AND PLAN: GI Bleed Esophagitis Esophageal Ulcer Acute Blood Loss Anemia Alcohol Dependence DM - monitor H/H - PO as tolerated - protonix, carafate - d/c IVF if tolerating PO - DVT prophylaxis - can monitor on floor
[2018-07-10] MEDS: SODIUM CHLORIDE 0.45% 1,000 ML IV SCH (13:50)
[2018-07-10] MEDS ORDERED: ARTIFICIAL TEARS (POLYVINYL ALCOHOL) OPTH DROPS OU PRN (14:07)
[2018-07-10 14:10] LABS: HEMATOCRIT 21.7 % (35.4-49); HEMOGLOBIN 7.2 GM/dL (11.7-16.9); MCH 32.7 pg (25.7-33.7); MEAN CELL VOLUME 98.9 fl (80-96); MEAN PLT VOLUME 8.6 fl (7.5-11.1); PLATELET COUNT 103 K/MM3 (134-434); RBC 2.19 M/mm3 (4.00-5.60); RDW 12.8 % (11.9-15.9); WHITE BLOOD COUNT 3.5 K/mm3 (4.0-10.0)
[2018-07-10] MEDS ORDERED: INSULIN (NOVOLOG) ASPART 100 UNITS/ML 10ML VIAL ONE (17:06)
--- NOTE | 2018-07-10 18:17 | PATH ---
Surgical Pathology Report Patient Name: MARIETTA FREEMAN [facility]. Rec. 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 SECOND PORTION DUODENUM, BIOPSY: DUODENAL MUCOSA WITH MILD CHRONIC DUODENITIS. B. STOMACH, BIOPSY: GASTRIC MUCOSA WITH CHRONIC GASTRITIS. POSITIVE FOR INTESTINAL METAPLASIA. IMMUNOSTAIN IS NEGATIVE FOR H. PYLORI ORGANISMS. Electronically Signed Luigi Matias M.D. Gross Description A. Received in formalin, labeled "second portion of duodenum" is a mendez, irregular portion of soft tissue measuring 0.4 cm. in greatest dimension. The specimen is submitted in toto in one cassette. B. Received in formalin, labeled "biopsy stomach" are 2 mendez, irregular portions of soft tissue measuring 0.4 and 0.5 cm. in greatest dimension. The specimens are submitted in toto in one cassette. /07/09/201807/09/2018
--- NOTE | 2018-07-10 19:31 | PN ---
Physical Exam: SUBJECTIVE: Patient seen and examined at bedside. Patient has no acute complaints. He had an episode of melena last night but denies dizziness, diarrhea or hematemesis. OBJECTIVE: Vital Signs Period Temp Pulse Resp BP Sys/Brothers Pulse Ox Last 24 Hr 98.2 F-98.8 F 83-109 14-18 85-125/54-103 100-100 GENERAL: The patient is awake, alert, and fully oriented, in no acute distress. HEAD: Normal with no signs of trauma. EYES: PERRL, extraocular movements intact, sclera anicteric, conjunctiva clear. No ptosis. ENT: Ears normal, nares patent, oropharynx clear without exudates, moist mucous membranes. NECK: Trachea midline, full range of motion, supple. LUNGS: Breath sounds equal, clear to auscultation bilaterally, no wheezes, no crackles, no accessory muscle use. HEART: Regular rate and rhythm, S1, S2 without murmur, rub or gallop. ABDOMEN: Soft, nontender, nondistended, normoactive bowel sounds, no guarding, no rebound, no hepatosplenomegaly, no masses. EXTREMITIES: 2+ pulses, warm, well-perfused, no edema. NEUROLOGICAL: Cranial nerves II through XII grossly intact. Normal speech, gait not observed. PSYCH: Normal mood, normal affect. SKIN: Warm, dry, normal turgor, no rashes or lesions noted Laboratory Results - last 24 hr 07/09/18 07/09/18 07/09/18 08:30 17:13 21:00 WBC 4.4 RBC 2.39 L Hgb 7.7 L Hct 23.5 L MCV 98.5 H MCH 32.1 MCHC 32.6 RDW 13.3 Plt Count 85 L MPV 9.2 Sodium Potassium Chloride Carbon Dioxide Anion Gap BUN Creatinine Creat Clearance w eGFR POC Glucometer Random Glucose Calcium Phosphorus Magnesium Total Bilirubin AST ALT Alkaline Phosphatase Total Protein Albumin Stool Occult Blood Positive Hepatitis A IgM Ab Negative Hep Bs Antigen Negative Hep B Core IgM Ab Negative Hepatitis C Antibody 0.1 Blood Type Antibody Screen Crossmatch 07/10/18 07/10/18 07/10/18 05:30 05:30 06:14 WBC 3.9 L RBC 2.27 L Hgb 7.3 L Hct 22.5 L MCV 99.1 H MCH 32.1 MCHC 32.4 RDW 13.1 Plt Count 86 L MPV 9.3 Sodium 146 H D Potassium 3.9 Chloride 111 H D Carbon Dioxide 31 Anion Gap 4 L BUN 19 H Creatinine 0.7 Creat Clearance w eGFR > 60 POC Glucometer [phone] Random Glucose 130 H D Calcium 7.5 L Phosphorus 2.6 Magnesium 2.1 Total Bilirubin 5.5 H D AST 132 H D ALT 206 H D Alkaline Phosphatase 148 H D Total Protein 4.4 L Albumin 2.0 L Stool Occult Blood Hepatitis A IgM Ab Hep Bs Antigen Hep B Core IgM Ab Hepatitis C Antibody Blood Type Antibody Screen Crossmatch 07/10/18 07/10/18 07/10/18 08:50 12:15 13:30 WBC 3.5 L RBC 2.19 L Hgb 7.2 L Hct 21.7 L MCV 98.9 H MCH 32.7 MCHC 33.0 RDW 12.8 Plt Count 103 L MPV 8.6 Sodium Potassium Chloride Carbon Dioxide Anion Gap BUN Creatinine Creat Clearance w eGFR POC Glucometer [phone] Random Glucose Calcium Phosphorus Magnesium Total Bilirubin AST ALT Alkaline Phosphatase Total Protein Albumin Stool Occult Blood Hepatitis A IgM Ab Hep Bs Antigen Hep B Core IgM Ab Hepatitis C Antibody Blood Type O POSITIVE Antibody Screen Negative Crossmatch See Detail 07/10/18 16:28 WBC RBC Hgb Hct MCV MCH MCHC RDW Plt Count MPV Sodium Potassium Chloride Carbon Dioxide Anion Gap BUN Creatinine Creat Clearance w eGFR POC Glucometer [phone] Random Glucose Calcium Phosphorus Magnesium Total Bilirubin AST ALT Alkaline Phosphatase Total Protein Albumin Stool Occult Blood Hepatitis A IgM Ab Hep Bs Antigen Hep B Core IgM Ab Hepatitis C Antibody Blood Type Antibody Screen Crossmatch Active Medications Generic Name Dose Route Start Last Admin Trade Name Freq PRN Reason Stop Dose Admin Artificial Tears 1 drop 07/10/18 14:07 07/10/18 16:58 Artificial Tears OU 1 drop BID PRN Administration HYGEINE Chlorhexidine Gluconate 1 applic 07/09/18 22:00 07/09/18 22:00 Hibiclens For Decolonization - TP 1 applic HS [facility]IOR Administration Sodium Chloride 1,000 mls @ 75 mls/hr 07/10/18 12:00 07/10/18 13:50 1/2 Normal Saline IV 75 mls/hr ASDIR [facility]IOR Administration Insulin Aspart 1 vial 07/09/18 07:00 07/10/18 16:58 Novolog Vial Sliding Scale - SQ 2 unit ACHS [facility]IOR Administration Protocol Lorazepam 1 mg 07/10/18 10:00 07/10/18 10:55 Ativan - PO 07/11/18 10:01 1 mg DAILY [facility]IOR Administration Mupirocin 1 applic 07/09/18 10:00 07/10/18 10:56 Bactroban Ointment (For Decolonization) - NS 07/14/18 09:59 1 appful BID Y[facility]IOR Administration Pantoprazole Sodium 40 mg 07/09/18 22:00 07/10/18 10:45 Protonix - PO 40 mg BID [facility]IOR Administration Sucralfate 1 gm 07/09/18 14:00 07/10/18 17:28 Carafate Oral Suspension - PO 1 gm QID [facility]IOR Administration ASSESSMENT/PLAN: Patient is a 47 year old with past medical history of EtOH dependence, GERD, and DM Type 2 (controlled with diet), was sent in from detox for apparent syncopal episode. #Anemia -UGIB 2/2 Esophagitis and ulcerations in distal esophagus -stool occult blood positive -protonix 40 mg po BID 4 weeks -liquid carfarate qid 15 days -soft diet -repeat EGD in 4 weeks, f/u biopsies as OP in 1 week -repeat FOBT + -hgb 7.2, repeat CBC q6h -consider transfusion hgb < 7 -patient hemodynamically stable, asymptomatic -f/u Dr. Ashraf #Alcoholic hepatitis -Pt reports being an alcoholic since he was a teenager and was told by PCP that he needed to discontinue alcohol and start detox -Pt has been on detox for the past 3 days and is on Librium protocol with one more day left. -Within 2 days (compared to 07/08/18), his hepatic panel improved significantly with AST from 697 to 265, ALT from 765 to 336, Alk Phos 329 to 247, Total bili 9.4 to 8.1. -PT and INR ordered. -Maddrey's Discriminate Function score is 19.6 -U/S of liver ordered --hepatomegaly and diffuse fatty infiltration of liver -Acute hepatitis panel -- negative #EtOH dependence -CIWA <8 -Patient received Librium in Detox for the past 2 days. -With elevated LFTs, will continue with Ativan 1mg daily, 1 of 2 doses given. #DM: uncontrolled -Pt reports controlling diabetes with diet and does report having a big bowl of cereal today and meat with potatoes. -HbA1c ordered. -Sliding scale insulin implemented -BGM monitoring qACHS. #FEN -IV NS (0.9%) at 125ml/hr -routine bmp monitoring -Soft diet, diabetic #Prophylaxis -SCDs applied Visit type - Emergency Visit Emergency Visit: Yes ED Registration Date: 07/09/18 Care time: The patient presented to the Emergency Department on the above date and was hospitalized for further evaluation of their emergent condition. - New Patient This patient is new to me today: Yes Date on this admission: 07/10/18 - Critical Care Critical Care patient: No
[2018-07-10] MEDS: CHLORHEXIDINE GLUCONATE 4% CLEANSER FOR DECOLONIZATION TP SCH (22:00)
[2018-07-11] MEDS: INSULIN SLIDING SCALE (NOVOLOG) 1 VIAL SQ SCH ×5 (00:09→21:43)
[2018-07-11] MEDS ORDERED: LORazepam 1 MG TABLET PO ONE (00:42)
[2018-07-11 06:16] LABS: HEMATOCRIT 20.7 % (35.4-49); MCH 32.3 pg (25.7-33.7); MCHC 32.9 g/dl (32.0-35.9); MEAN CELL VOLUME 98.3 fl (80-96); MEAN PLT VOLUME 8.5 fl (7.5-11.1); PLATELET COUNT 106 K/MM3 (134-434); RBC 2.11 M/mm3 (4.00-5.60); WHITE BLOOD COUNT 3.3 K/mm3 (4.0-10.0)
[2018-07-11 06:22] LABS: HEMOGLOBIN 6.8 GM/dL (11.7-16.9)
[2018-07-11 06:49] LABS: CALCIUM 8.1 mg/dL (8.5-10.1); CHLORIDE 108 mmol/L (98-107); POTASSIUM 3.9 mmol/L (3.5-5.1); SODIUM 144 mmol/L (136-145)
[2018-07-11 06:55] LABS: ALBUMIN 2.1 g/dl (3.4-5.0); ALK PHOS 214 U/L (45-117); ANION GAP 6 MMOL/L (8-16); BILIRUBIN,TOTAL 3.5 mg/dL (0.2-1.0); BLOOD UREA NITROGEN 9 mg/dL (7-18); CO2 30 mmol/L (21-32); CREATININE 0.7 mg/dL (0.7-1.3); GLUCOSE,RANDOM 122 mg/dL (74-106); MAGNESIUM 2.1 mg/dL (1.8-2.4); PHOSPHOROUS 3.8 mg/dL (2.5-4.9); SGOT/AST 133 U/L (15-37); SGPT/ALT 188 U/L (12-78); TOT PROT 4.7 g/dl (6.4-8.2)
[2018-07-11] MEDS ORDERED: PT OWN MED DRAWER 7, Y5N ONE ×2 (09:30→14:31)
[2018-07-11] MEDS: MUPIROCIN 2% TOPICAL OINTMENT FOR DECOLONIZATION NS SCH (09:34)
[2018-07-11] MEDS: PANTOPRAZOLE 40 MG TABLET (FP) PO SCH ×2 (09:34→21:44)
[2018-07-11] MEDS: LORazepam 1 MG TABLET PO SCH (09:34)
[2018-07-11] MEDS: SUCRALFATE 1 GM/10 ML UNIT DOSE CUPS PO SCH ×4 (09:34→21:43)
--- NOTE | 2018-07-11 10:38 | PN ---
Progress Note (short form) - Note Progress Note: Severe ulcerative esophagitis was found on recent EGD. Slight drop in HGB overnight. Comfortable. Pain-free. No stigmata of ongoing GI bleeding noted. Continue to monitor, continue current care.
--- NOTE | 2018-07-11 13:17 | PN ---
Teaching Attending Note Name of Resident: Joanna Ruiz ATTENDING PHYSICIAN STATEMENT I saw and evaluated the patient. I reviewed the resident's note and discussed the case with the resident. I agree with the resident's findings and plan as documented. SUBJECTIVE: Pt seen and examined in the ICU. Some residual dark stools. Denies abdominal pain, nausea or vomiting. OBJECTIVE: Vital Signs Period Temp Pulse Resp BP Sys/Brothers Pulse Ox Last 24 Hr 98.1 F-98.4 F 82-104 14-18 106-129/62-103 100-100 Intake & Output 07/08/18 07/09/18 07/10/18 07/11/18 23:59 23:59 23:59 23:59 Intake Total 1725 300 525 Output Total 1000 2200 1000 Balance 375 -6841 -160 Weight 92.986 kg 92.986 kg Gen: NAD at rest Heart: RRR Lung: decreased breath sounds at the bases Abd: soft, nontender Ext: no edema CBC, BMP 07/11/18 05:30 07/11/18 05:30 Active Medications Artificial Tears (Artificial Tears) 1 drop OU BID PRN PRN Reason: HYGEINE Last Admin: 07/10/18 16:58 Dose: 1 drop Chlorhexidine Gluconate (Hibiclens For Decolonization -) 1 applic TP HS [facility] Last Admin: 07/10/18 22:00 Dose: 1 applic Sodium Chloride (1/2 Normal Saline) 1,000 mls @ 75 mls/hr IV ASDIR [facility] Last Admin: 07/10/18 13:50 Dose: 75 mls/hr Insulin Aspart (Novolog Vial Sliding Scale -) 1 vial SQ ACHS [facility]; Protocol Last Admin: 07/11/18 12:30 Dose: Not Given Mupirocin (Bactroban Ointment (For Decolonization) -) 1 applic NS BID [facility] Stop: 07/14/18 09:59 Last Admin: 07/11/18 09:34 Dose: 1 appful Pantoprazole Sodium (Protonix -) 40 mg PO BID [facility] Last Admin: 07/11/18 09:34 Dose: 40 mg Sucralfate (Carafate Oral Suspension -) 1 gm PO QID [facility] Last Admin: 07/11/18 09:34 Dose: 1 gm ASSESSMENT AND PLAN: GI Bleed Esophagitis Esophageal Ulcer Acute Blood Loss Anemia Alcohol Dependence Elevated LFTs DM - transfuse 1 unit PRBC - monitor H/H - PO as tolerated - protonix, carafate - DVT prophylaxis - can monitor on floor
--- NOTE | 2018-07-11 13:45 | PN ---
Physical Exam: SUBJECTIVE Patient is a 47 y/o male with a history of alcohol dependence, GERD, DM type 2 who is admitted for GI bleed. Patient reports his stool is not as dark. Patient hgb dropped again today and received one unit of blood. OBJECTIVE: Vital Signs Temperature 98.9 F 07/11/18 13:17 Pulse Rate 80 07/11/18 13:17 Respiratory Rate 18 07/11/18 13:17 Blood Pressure 115/78 07/11/18 13:17 O2 Sat by Pulse Oximetry (%) 100 07/11/18 13:01 GENERAL: jaundice on presentation, alert, awake, oriented LUNGS: Breath sounds equal, clear to auscultation bilaterally HEART: Regular rate and rhythm, ABDOMEN: Soft, nontender, not distended, normoactive bowel sounds, no guarding MUSCULOSKELETAL: Normal range of motion at all joints. No bony deformities or tenderness. No CVA tenderness. LOWER EXTREMITIES: 2+ pulses, warm, well-perfused. No calf tenderness. No peripheral edema. SKIN: Warm, dry, normal turgor, no rashes or lesions noted. CBC, BMP 07/11/18 05:30 07/11/18 05:30 Active Medications Artificial Tears (Artificial Tears) 1 drop OU BID PRN PRN Reason: HYGEINE Last Admin: 07/10/18 16:58 Dose: 1 drop Chlorhexidine Gluconate (Hibiclens For Decolonization -) 1 applic TP HS [facility] Last Admin: 07/10/18 22:00 Dose: 1 applic Sodium Chloride (1/2 Normal Saline) 1,000 mls @ 75 mls/hr IV ASDIR [facility] Last Admin: 07/10/18 13:50 Dose: 75 mls/hr Insulin Aspart (Novolog Vial Sliding Scale -) 1 vial SQ ACHS [facility]; Protocol Last Admin: 07/11/18 12:30 Dose: Not Given Mupirocin (Bactroban Ointment (For Decolonization) -) 1 applic NS BID [facility] Stop: 07/14/18 09:59 Last Admin: 07/11/18 09:34 Dose: 1 appful Pantoprazole Sodium (Protonix -) 40 mg PO BID [facility] Last Admin: 07/11/18 09:34 Dose: 40 mg Sucralfate (Carafate Oral Suspension -) 1 gm PO QID [facility] Last Admin: 07/11/18 09:34 Dose: 1 gm ASSESSMENT/PLAN: Patient is a 47 y/o male with a history of alcohol dependence, GERD, DM type 2 who is admitted for GI bleed and symptomatic anemia. GI Upper GI bleed 2/2 Esophagitis and ulcerations in distal esophagus - protonix 40 mg po BID 4 weeks - liquid carfarate qid 15 days - soft diet - repeat EGD in 4 weeks, f/u biopsies as an outpatient - repeat FOBT + - hgb 6.8 this morning, one unit of blood given , f/u CBC - patient hemodynamically stable, asymptomatic - f/u Dr. Ashraf alcohol dependence - continue trending AST/ ALT - ativan 1mg daily Endocrinology DM - SS - diabetic diet consult Hemetology DVT ppx - SCD's applied - consider anticoagulation once Hgb stabalized FEN - soft diet, diabetic Dispo: transfer to med surg Visit type - Emergency Visit Emergency Visit: No - New Patient This patient is new to me today: No - Critical Care Critical Care patient: Yes Total Critical Care Time (in minutes): 45 Critical Care Statement: The care of this patient involved high complexity decision making to prevent further life threatening deterioration of the patient 's condition and/or to evaluate & treat vital organ system(s) failure or risk of failure.
--- NOTE | 2018-07-11 14:29 | PN ---
Teaching Attending Note Name of Resident: Felipa Sebastian ATTENDING PHYSICIAN STATEMENT I saw and evaluated the patient. I reviewed the resident's note and discussed the case with the resident. I agree with the resident's findings and plan as documented with exceptions below. SUBJECTIVE: Patient seen and examined. No nausea, vomiting, abdominal pain. reports BM yesterday but denies being dark. No new complaints. OBJECTIVE: Vital Signs Period Temp Pulse Resp BP Sys/Brothers Pulse Ox Last 24 Hr 98.1 F-98.9 F 80-99 14-18 106-129/62-78 100-100 Intake & Output 07/08/18 07/09/18 07/10/18 07/11/18 23:59 23:59 23:59 23:59 Intake Total 1725 300 525 Output Total 1000 2200 1500 Balance 725 -1900 -975 Weight 205 lb 205 lb General: lying in bed in no acute distress Chest: CTAB, no rales or wheezing Abdomen:soft, NT throughout, ND, positive bowel sounds Extremities: no edema or tremors. Home Medications Medication Instructions Recorded NK [No Known Home Medication] 07/09/18 Active Medications Artificial Tears (Artificial Tears) 1 drop OU BID PRN PRN Reason: HYGEINE Last Admin: 07/10/18 16:58 Dose: 1 drop Chlorhexidine Gluconate (Hibiclens For Decolonization -) 1 applic TP HS [facility] Last Admin: 07/10/18 22:00 Dose: 1 applic Sodium Chloride (1/2 Normal Saline) 1,000 mls @ 75 mls/hr IV ASDIR [facility] Last Admin: 07/10/18 13:50 Dose: 75 mls/hr Insulin Aspart (Novolog Vial Sliding Scale -) 1 vial SQ ACHS [facility]; Protocol Last Admin: 07/11/18 12:30 Dose: Not Given Mupirocin (Bactroban Ointment (For Decolonization) -) 1 applic NS BID [facility] Stop: 07/14/18 09:59 Last Admin: 07/11/18 09:34 Dose: 1 appful Pantoprazole Sodium (Protonix -) 40 mg PO BID [facility] Last Admin: 07/11/18 09:34 Dose: 40 mg Sucralfate (Carafate Oral Suspension -) 1 gm PO QID [facility] Last Admin: 07/11/18 09:34 Dose: 1 gm Laboratory Results - last 24 hr 07/10/18 07/10/18 07/11/18 08:50 16:28 05:30 WBC 3.3 L RBC 2.11 L Hgb 6.8 L* Hct 20.7 L MCV 98.3 H MCH 32.3 MCHC 32.9 RDW 13.0 Plt Count 106 L MPV 8.5 Sodium Potassium Chloride Carbon Dioxide Anion Gap BUN Creatinine Creat Clearance w eGFR POC Glucometer [phone] Random Glucose Calcium Phosphorus Magnesium Total Bilirubin AST ALT Alkaline Phosphatase Total Protein Albumin Blood Type O POSITIVE Antibody Screen Negative Crossmatch See Detail 07/11/18 05:30 WBC RBC Hgb Hct MCV MCH MCHC RDW Plt Count MPV Sodium 144 Potassium 3.9 Chloride 108 H Carbon Dioxide 30 Anion Gap 6 L BUN 9 Creatinine 0.7 Creat Clearance w eGFR > 60 POC Glucometer Random Glucose 122 H Calcium 8.1 L Phosphorus 3.8 D Magnesium 2.1 Total Bilirubin 3.5 H D AST 133 H ALT 188 H Alkaline Phosphatase 214 H D Total Protein 4.7 L Albumin 2.1 L Blood Type Antibody Screen Crossmatch ASSESSMENT AND PLAN: 47yo M with PMH continuous ETOH abuse and suspected cirrhosis presented to the ER from [facility] for syncopal episode. On arrival to the ER he was found to have Hgb of 11 and melena -Acute blood loss anemia -Severe ulcerative esophagitis -Near syncope, likely from GI bleed/anemia -Hypotension, hypovolumia/GI bleed, overall improved now -Acute alcoholic hepatitis -ETOH dependence -Thrombocytopenia, suspect ETOH related bone marrow suppression+/- splenic sequestration -NIDDM Plan: h/h noted. No gross evidence of bleed or hemodynamic instability. Transfuse 1 unit PRBC. GI input noted. Protonix 40 mg BID x 4 weeks, sucralfate x 15 days, Alcohol cessation counseling. LFTs continue to improve. Liver US noted. No clinical concerns for withdrawal. Ativan tapered off today. A1c 7.1, ISS for now. PO per GI. Reports being on metformin in the past. Resume on d/c based on blood sugar readings and overall clinical status. DVTPPX with SCDs Agree with transfer to medical floors. Plan discussed with patient in detail, all questions answered. The care of this patient involved high complexity decision making to prevent further life threatening deterioration of the patient's condition and/or to evaluate & treat vital organ system(s) failure or risk of failure. 40 mins
--- NOTE | 2018-07-11 16:25 | PN ---
Physical Exam: SUBJECTIVE: Patient seen and examined at bedside this morning. Patient has no new complaints but seems anxious and wants to go home today. OBJECTIVE: Vital Signs Period Temp Pulse Resp BP Sys/Brothers Pulse Ox Last 24 Hr 98.1 F-98.9 F 80-99 14-18 106-129/62-78 100-100 GENERAL: The patient is awake, alert, and fully oriented, in no acute distress. HEAD: Normal with no signs of trauma. EYES: PERRL, extraocular movements intact, +icteric sclerae conjunctiva clear. ENT: Ears normal, nares patent, oropharynx clear without exudates, moist mucous membranes. NECK: Trachea midline, full range of motion, supple. LUNGS: Breath sounds equal, clear to auscultation bilaterally. HEART: Regular rate and rhythm, S1, S2 without murmur, rub or gallop. ABDOMEN: Soft, nontender, nondistended, normoactive bowel sounds. EXTREMITIES: 2+ pulses, warm, well-perfused, no edema. NEUROLOGICAL: Cranial nerves II through XII grossly intact. Normal speech, gait not observed. PSYCH: Normal mood, normal affect. SKIN: Warm, dry, normal turgor, no rashes or lesions noted Laboratory Results - last 24 hr 07/10/18 07/10/18 07/11/18 08:50 16:28 05:30 WBC 3.3 L RBC 2.11 L Hgb 6.8 L* Hct 20.7 L MCV 98.3 H MCH 32.3 MCHC 32.9 RDW 13.0 Plt Count 106 L MPV 8.5 Sodium Potassium Chloride Carbon Dioxide Anion Gap BUN Creatinine Creat Clearance w eGFR POC Glucometer [phone] Random Glucose Calcium Phosphorus Magnesium Total Bilirubin AST ALT Alkaline Phosphatase Total Protein Albumin Blood Type O POSITIVE Antibody Screen Negative Crossmatch See Detail 07/11/18 05:30 WBC RBC Hgb Hct MCV MCH MCHC RDW Plt Count MPV Sodium 144 Potassium 3.9 Chloride 108 H Carbon Dioxide 30 Anion Gap 6 L BUN 9 Creatinine 0.7 Creat Clearance w eGFR > 60 POC Glucometer Random Glucose 122 H Calcium 8.1 L Phosphorus 3.8 D Magnesium 2.1 Total Bilirubin 3.5 H D AST 133 H ALT 188 H Alkaline Phosphatase 214 H D Total Protein 4.7 L Albumin 2.1 L Blood Type Antibody Screen Crossmatch Active Medications Generic Name Dose Route Start Last Admin Trade Name Freq PRN Reason Stop Dose Admin Artificial Tears 1 drop 07/10/18 14:07 07/10/18 16:58 Artificial Tears OU 1 drop BID PRN Administration HYGEINE Chlorhexidine Gluconate 1 applic 07/09/18 22:00 07/10/18 22:00 Hibiclens For Decolonization - TP 1 applic HS [facility]IOR Administration Sodium Chloride 1,000 mls @ 75 mls/hr 07/10/18 12:00 07/10/18 13:50 1/2 Normal Saline IV 75 mls/hr ASDIR [facility] Administration Insulin Aspart 1 vial 07/09/18 07:00 07/11/18 12:30 Novolog Vial Sliding Scale - SQ Not Given ACHS [facility]IOR Protocol Mupirocin 1 applic 07/09/18 10:00 07/11/18 09:34 Bactroban Ointment (For Decolonization) - NS 07/14/18 09:59 1 appful BID [facility]IOR Administration Pantoprazole Sodium 40 mg 07/09/18 22:00 07/11/18 09:34 Protonix - PO 40 mg BID [facility]IOR Administration Sucralfate 1 gm 07/09/18 14:00 07/11/18 14:00 Carafate Oral Suspension - PO 1 gm QID [facility] Administration ASSESSMENT/PLAN: Patient is a 47 year old with past medical history of EtOH dependence, GERD, and DM Type 2 (controlled with diet), was sent in from detox for apparent syncopal episode. Transfer orders done for patient to be transferred to [facility]. #Anemia -UGIB 2/2 Esophagitis and ulcerations in distal esophagus -protonix 40 mg po BID 4 weeks -liquid carfarate qid 15 days -soft diet -repeat EGD in 4 weeks, f/u biopsies as OP in 1 week -repeat FOBT + -hgb 6.8, transfused 1pRBC -repeat CBC post-transfusion -patient hemodynamically stable, asymptomatic -f/u Dr. Ashraf #Alcoholic hepatitis -Pt reports being an alcoholic since he was a teenager and was told by PCP that he needed to discontinue alcohol and start detox -Pt has been on detox for the past 3 days and is on Librium protocol with one more day left. -Maddrey's Discriminate Function score is 19.6 -U/S of liver ordered --hepatomegaly and diffuse fatty infiltration of liver -Acute hepatitis panel -- negative #EtOH dependence -CIWA <8 -Patient received Librium in Detox for the past 2 days. -With elevated LFTs, will continue with Ativan 1mg daily, 2 of 2 doses given. -Patient seemed agitated today. Ativan 1mg given. #DM: chronic -Sliding scale insulin implemented -BGM monitoring qACHS. #FEN -IV NS (0.9%) at 125ml/hr -routine bmp monitoring -Soft diet, diabetic #Prophylaxis -SCDs applied -will consider Heparin once Hgb is stable #Disposition -for transfer to tele -full code Visit type - Emergency Visit Emergency Visit: Yes ED Registration Date: 07/09/18 Care time: The patient presented to the Emergency Department on the above date and was hospitalized for further evaluation of their emergent condition. - New Patient This patient is new to me today: Yes Date on this admission: 07/11/18 - Critical Care Critical Care patient: No
[2018-07-11 18:12] LABS: HEMATOCRIT 27.1 % (35.4-49); HEMOGLOBIN 9.1 GM/dL (11.7-16.9); MCH 32.9 pg (25.7-33.7); MCHC 33.6 g/dl (32.0-35.9); MEAN CELL VOLUME 97.9 fl (80-96); MEAN PLT VOLUME 8.8 fl (7.5-11.1); PLATELET COUNT 150 K/MM3 (134-434); RBC 2.77 M/mm3 (4.00-5.60); RDW 13.3 % (11.9-15.9); WHITE BLOOD COUNT 3.5 K/mm3 (4.0-10.0)
[2018-07-11] MEDS ORDERED: ARTIFICIAL TEARS (POLYVINYL ALCOHOL) OPTH DROPS OU PRN (18:45)
[2018-07-11] MEDS: SODIUM CHLORIDE 0.45% 1,000 ML IV SCH (19:48)
[2018-07-11] MEDS ORDERED: INSULIN (NOVOLOG) ASPART 100 UNITS/ML 10ML VIAL ONE (21:18)
[2018-07-11] MEDS ORDERED: MELATONIN 5 MG TABLETS PO ONE (22:13)
[2018-07-12] MEDS: INSULIN SLIDING SCALE (NOVOLOG) 1 VIAL SQ SCH ×4 (06:14→22:50)
[2018-07-12 07:19] LABS: HEMATOCRIT 28.4 % (35.4-49); HEMOGLOBIN 9.4 GM/dL (11.7-16.9); MCH 32.6 pg (25.7-33.7); MCHC 33.2 g/dl (32.0-35.9); MEAN CELL VOLUME 98.2 fl (80-96); MEAN PLT VOLUME 8.5 fl (7.5-11.1); PLATELET COUNT 153 K/MM3 (134-434); RBC 2.89 M/mm3 (4.00-5.60); RDW 13.6 % (11.9-15.9); WHITE BLOOD COUNT 4.8 K/mm3 (4.0-10.0)
[2018-07-12] MEDS: LORazepam 2 MG/ML SDV VIAL IVPUSH SCH (07:47)
[2018-07-12] MEDS: SODIUM CHLORIDE 0.45% 1,000 ML IV SCH ×3 (07:47→23:17)
--- NOTE | 2018-07-12 07:59 | PN ---
Teaching Attending Note Name of Resident: Felipa Sebastian ATTENDING PHYSICIAN STATEMENT I saw and evaluated the patient. I reviewed the resident's note and discussed the case with the resident. I agree with the resident's findings and plan as documented with exceptions below. SUBJECTIVE: Patient seen and examined, no nausea, vomiting, abdominal pain. Tolerating diet well. no dizziness. OBJECTIVE: Vital Signs Period Temp Pulse Resp BP Sys/Brothers Pulse Ox Last 24 Hr 98.3 F-98.9 F 80-95 16-20 100-152/58-83 100-100 Intake & Output 07/09/18 07/10/18 07/11/18 07/12/18 23:59 23:59 23:59 23:59 Intake Total 1402 789 6354 800 Output Total 1000 2200 1500 1000 Balance 725 -1900 -320 -200 Weight 205 lb 205 lb General; sitting in bed in no acute distress Chest; CTAB, no rales or wheezing Abdomen: soft, NT throughout, ND, positive bowel sounds, no RUQ tenderness, neg Mckay's sign Extremities: no edema or tremors Active Medications Artificial Tears (Artificial Tears) 1 drop OU Q12H PRN PRN Reason: HYGEINE Last Admin: 07/11/18 21:45 Dose: 1 drop Sodium Chloride (1/2 Normal Saline) 1,000 mls @ 75 mls/hr IV ASDIR [facility] Last Admin: 07/11/18 19:48 Dose: 75 mls/hr Insulin Aspart (Novolog Vial Sliding Scale -) 1 vial SQ ACHS [facility]; Protocol Last Admin: 07/12/18 06:14 Dose: Not Given Pantoprazole Sodium (Protonix -) 40 mg PO BID [facility] Last Admin: 07/11/18 21:44 Dose: 40 mg Sucralfate (Carafate Oral Suspension -) 1 gm PO QID [facility] Last Admin: 07/11/18 21:43 Dose: 1 gm Laboratory Results - last 24 hr 07/11/18 07/11/18 07/11/18 12:26 17:00 17:09 WBC 3.5 L RBC 2.77 L Hgb 9.1 L Hct 27.1 L D MCV 97.9 H MCH 32.9 MCHC 33.6 RDW 13.3 Plt Count 150 D MPV 8.8 Sodium Potassium Chloride Carbon Dioxide Anion Gap BUN Creatinine Creat Clearance w eGFR POC Glucometer 150.62427 150.30224 Random Glucose Calcium Total Bilirubin AST ALT Alkaline Phosphatase Total Protein Albumin 07/11/18 07/12/18 07/12/18 21:37 05:46 06:10 WBC 4.8 RBC 2.89 L Hgb 9.4 L Hct 28.4 L MCV 98.2 H MCH 32.6 MCHC 33.2 RDW 13.6 Plt Count 153 MPV 8.5 Sodium Potassium Chloride Carbon Dioxide Anion Gap BUN Creatinine Creat Clearance w eGFR POC Glucometer 212 149 Random Glucose Calcium Total Bilirubin AST ALT Alkaline Phosphatase Total Protein Albumin 07/12/18 06:10 WBC RBC Hgb Hct MCV MCH MCHC RDW Plt Count MPV Sodium 139 Potassium 3.7 Chloride 102 Carbon Dioxide 29 Anion Gap 8 BUN 9 Creatinine 0.8 Creat Clearance w eGFR > 60 POC Glucometer Random Glucose 147 H D Calcium 8.3 L Total Bilirubin 3.4 H AST 160 H D ALT 214 H Alkaline Phosphatase 276 H D Total Protein 6.2 L Albumin 2.7 L ASSESSMENT AND PLAN: 47yo M with PMH continuous ETOH abuse and suspected cirrhosis presented to the ER from [facility] for syncopal episode. On arrival to the ER he was found to have Hgb of 11 and melena -Acute blood loss anemia -Severe ulcerative esophagitis -Near syncope, likely from GI bleed/anemia -Hypotension, hypovolumia/GI bleed, overall improved now -Acute alcoholic hepatitis -ETOH dependence -Thrombocytopenia, suspect ETOH related bone marrow suppression+/- splenic sequestration -NIDDM Plan: s/p 1 unit PRBC 07/11, follow up h/h. Hemodynamics stable, tolerating diet. D/c IVF. GI input noted. Protonix 40 mg BID x 4 weeks, sucralfate x 15 days, Mild worsening LFTs but Last improving. Discussed with Dr. Ashraf, recommend inhouse monitoring till clearly improving. Alcohol cessation counseling. Liver US noted. No clinical concerns for withdrawal. Finished detox. A1c 7.1, ISS for now. PO per GI. Reports being on metformin in the past. Resume on d/c based on blood sugar readings and overall clinical status. DVTPPX with SCDs Dispo in 24 hours if no concerns. CM consult to discuss possible d/c to [facility] rehab if patient agreable. Plan discussed with patient in detail, all questions answered.
[2018-07-12 08:26] LABS: CHLORIDE 102 mmol/L (98-107); POTASSIUM 3.7 mmol/L (3.5-5.1); SODIUM 139 mmol/L (136-145)
[2018-07-12 09:05] LABS: ALBUMIN 2.7 g/dl (3.4-5.0); ALK PHOS 276 U/L (45-117); ANION GAP 8 MMOL/L (8-16); BILIRUBIN,TOTAL 3.4 mg/dL (0.2-1.0); BLOOD UREA NITROGEN 9 mg/dL (7-18); CALCIUM 8.3 mg/dL (8.5-10.1); CO2 29 mmol/L (21-32); CREATININE 0.8 mg/dL (0.7-1.3); GLUCOSE,RANDOM 147 mg/dL (74-106); SGOT/AST 160 U/L (15-37); SGPT/ALT 214 U/L (12-78); TOT PROT 6.2 g/dl (6.4-8.2)
[2018-07-12] MEDS: SUCRALFATE 1 GM/10 ML UNIT DOSE CUPS PO SCH ×4 (09:15→21:26)
[2018-07-12] MEDS: PANTOPRAZOLE 40 MG TABLET (FP) PO SCH ×2 (09:15→21:28)
[2018-07-12] MEDS ORDERED: INSULIN (NOVOLOG) ASPART 100 UNITS/ML 10ML VIAL ONE (11:29)
[2018-07-12 11:37] LABS: INR 1.03 (0.83-1.09); PROTHROMBIN TIME (PATIENT) 11.6 SEC (9.7-13.0)
--- NOTE | 2018-07-12 12:13 | PN ---
Physical Exam: SUBJECTIVE: Patient seen and examined this morning at bedside. Patient has no active complaints and is "feeling great". OBJECTIVE: Vital Signs Period Temp Pulse Resp BP Sys/Brothers Pulse Ox Last 24 Hr 98.3 F-98.9 F 80-102 16-20 100-152/58-83 96-100 GENERAL: The patient is awake, alert, and fully oriented, in no acute distress. HEAD: Normal with no signs of trauma. EYES: PERRLA, EOMI, +icteric sclerae, conjunctiva clear. NECK: Trachea midline, full range of motion, supple. LUNGS: Breath sounds equal, clear to auscultation bilaterally. HEART: Regular rate and rhythm, S1, S2 without murmur, rub or gallop. ABDOMEN: Soft, nontender, nondistended, normoactive bowel sounds. EXTREMITIES: 2+ pulses, warm, well-perfused, no edema. NEUROLOGICAL: Cranial nerves II through XII grossly intact. Normal speech, normal gait. PSYCH: Normal mood, normal affect. SKIN: Warm, dry, normal turgor, no rashes or lesions noted Laboratory Results - last 24 hr 07/11/18 07/11/18 07/11/18 12:26 17:00 17:09 WBC 3.5 L RBC 2.77 L Hgb 9.1 L Hct 27.1 L D MCV 97.9 H MCH 32.9 MCHC 33.6 RDW 13.3 Plt Count 150 D MPV 8.8 PT with INR INR Sodium Potassium Chloride Carbon Dioxide Anion Gap BUN Creatinine Creat Clearance w eGFR POC Glucometer 150.07349 150.45517 Random Glucose Calcium Total Bilirubin AST ALT Alkaline Phosphatase Total Protein Albumin 07/11/18 07/12/18 07/12/18 21:37 05:46 06:10 WBC 4.8 RBC 2.89 L Hgb 9.4 L Hct 28.4 L MCV 98.2 H MCH 32.6 MCHC 33.2 RDW 13.6 Plt Count 153 MPV 8.5 PT with INR INR Sodium Potassium Chloride Carbon Dioxide Anion Gap BUN Creatinine Creat Clearance w eGFR POC Glucometer 212 149 Random Glucose Calcium Total Bilirubin AST ALT Alkaline Phosphatase Total Protein Albumin 07/12/18 07/12/18 07/12/18 06:10 10:22 11:34 WBC RBC Hgb Hct MCV MCH MCHC RDW Plt Count MPV PT with INR 11.60 INR 1.03 Sodium 139 Potassium 3.7 Chloride 102 Carbon Dioxide 29 Anion Gap 8 BUN 9 Creatinine 0.8 Creat Clearance w eGFR > 60 POC Glucometer 177 Random Glucose 147 H D Calcium 8.3 L Total Bilirubin 3.4 H AST 160 H D ALT 214 H Alkaline Phosphatase 276 H D Total Protein 6.2 L Albumin 2.7 L CBC, BMP 07/12/18 06:10 07/12/18 06:10 Active Medications Generic Name Dose Route Start Last Admin Trade Name Freq PRN Reason Stop Dose Admin Artificial Tears 1 drop 07/11/18 18:45 07/11/18 21:45 Artificial Tears OU 1 drop Q12H PRN Administration HYGEINE Sodium Chloride 1,000 mls @ 75 mls/hr 07/11/18 18:45 07/12/18 09:17 1/2 Normal Saline IV 75 mls/hr ASDIR [facility] Administration Insulin Aspart 1 vial 07/11/18 22:00 07/12/18 11:35 Novolog Vial Sliding Scale - SQ 2 units ACHS [facility] Administration Protocol Pantoprazole Sodium 40 mg 07/11/18 22:00 07/12/18 09:15 Protonix - PO 40 mg BID [facility] Administration Sucralfate 1 gm 07/11/18 22:00 07/12/18 09:15 Carafate Oral Suspension - PO 1 gm QID [facility] Administration ASSESSMENT/PLAN: Patient is a 47 year old with past medical history of EtOH dependence, GERD, and DM Type 2 (controlled with diet), was sent in from detox for apparent syncopal episode. #Anemia -UGIB 2/2 Esophagitis and ulcerations in distal esophagus -protonix 40 mg po BID x 4 weeks (on day 2) -liquid carfarate qid x 15 days (on day 2) -soft diet tolerated. -repeat EGD in 4 weeks, f/u biopsies as OP in 1 week -s/p transfusion 1pRBC, Hgb 9.1 -- increased to 9.4 this AM -patient hemodynamically stable, asymptomatic #Alcoholic hepatitis -Pt reports being an alcoholic since he was a teenager and was told by PCP that he needed to discontinue alcohol and start detox -Pt has been on detox for the past 3 days and is on Librium protocol with one more day left. -Maddrey's Discriminate Function score is 19.6 -U/S of liver ordered --hepatomegaly and diffuse fatty infiltration of liver -Acute hepatitis panel -- negative -LFT's today increased (AST 160 from 133, ALT 214 from 188) -Dr. Ashraf consulted, recommended patient to stay in the hospital for monitoring. -Pt agreed to stay. #EtOH dependence -CIWA <8 -Patient received Librium in Detox for the past 2 days. -With elevated LFTs, will continue with Ativan 1mg daily, 2 of 2 doses given. -Patient is not showing signs of withdrawal. #DM: chronic -Sliding scale insulin implemented -BGM monitoring qACHS. #FEN -IV NS (0.45%) at 75ml/hr -routine bmp monitoring -Soft diet, diabetic #Prophylaxis -SCDs applied -will consider Heparin once Hgb is stable #Disposition -full code Visit type - Emergency Visit Emergency Visit: Yes ED Registration Date: 07/09/18 Care time: The patient presented to the Emergency Department on the above date and was hospitalized for further evaluation of their emergent condition. - New Patient This patient is new to me today: Yes Date on this admission: 07/12/18 - Critical Care Critical Care patient: No
[2018-07-12] MEDS ORDERED: MELATONIN 5 MG TABLETS PO ONE (23:04)
[2018-07-13] MEDS: INSULIN SLIDING SCALE (NOVOLOG) 1 VIAL SQ SCH ×3 (06:27→16:13)
[2018-07-13 07:16] LABS: HEMATOCRIT 25.6 % (35.4-49); HEMOGLOBIN 8.6 GM/dL (11.7-16.9); MCH 33.4 pg (25.7-33.7); MCHC 33.5 g/dl (32.0-35.9); MEAN CELL VOLUME 99.6 fl (80-96); MEAN PLT VOLUME 8.1 fl (7.5-11.1); PLATELET COUNT 175 K/MM3 (134-434); RBC 2.57 M/mm3 (4.00-5.60); RDW 13.4 % (11.9-15.9); WHITE BLOOD COUNT 4.4 K/mm3 (4.0-10.0)
[2018-07-13 07:42] LABS: CHLORIDE 106 mmol/L (98-107); SODIUM 143 mmol/L (136-145)
[2018-07-13 07:57] LABS: ALBUMIN 2.5 g/dl (3.4-5.0); ALK PHOS 225 U/L (45-117); ANION GAP 9 MMOL/L (8-16); BILIRUBIN,TOTAL 2.4 mg/dL (0.2-1.0); BLOOD UREA NITROGEN 8 mg/dL (7-18); CALCIUM 8.3 mg/dL (8.5-10.1); CO2 28 mmol/L (21-32); CREATININE 0.7 mg/dL (0.7-1.3); GLUCOSE,RANDOM 130 mg/dL (74-106); SGOT/AST 107 U/L (15-37); SGPT/ALT 167 U/L (12-78); TOT PROT 5.6 g/dl (6.4-8.2)
[2018-07-13 09:22] VITALS: TEMP 98.7
[2018-07-13] MEDS: SUCRALFATE 1 GM/10 ML UNIT DOSE CUPS PO SCH ×2 (09:40→14:49)
[2018-07-13] MEDS: PANTOPRAZOLE 40 MG TABLET (FP) PO SCH (09:40)
[2018-07-13 12:35] LABS: HEMATOCRIT 26.9 % (35.4-49); HEMOGLOBIN 8.8 GM/dL (11.7-16.9); MCH 32.8 pg (25.7-33.7); MCHC 32.7 g/dl (32.0-35.9); MEAN CELL VOLUME 100.2 fl (80-96); MEAN PLT VOLUME 8.1 fl (7.5-11.1); PLATELET COUNT 187 K/MM3 (134-434); RBC 2.69 M/mm3 (4.00-5.60); RDW 13.1 % (11.9-15.9); WHITE BLOOD COUNT 4.6 K/mm3 (4.0-10.0)
[2018-07-13 14:55] VITALS: BP 120/70; PULSE 100
--- NOTE | 2018-07-13 15:51 | PN ---
Teaching Attending Note Name of Resident: Felipa Sebastian ATTENDING PHYSICIAN STATEMENT I saw and evaluated the patient. I reviewed the resident's note and discussed the case with the resident. I agree with the resident's findings and plan as documented with exceptions below. SUBJECTIVE: patient seen and examined, no dark or bloody stools, dizziness or new concerns. Tolerating diet well, eager to go home. OBJECTIVE: Vital Signs Period Temp Pulse Resp BP Sys/Brothers Pulse Ox Last 24 Hr 98.3 F-99.1 F 88-105 17-20 107-145/65-82 96-98 Intake & Output 07/10/18 07/11/18 07/12/18 07/13/18 23:59 23:59 23:59 23:59 Intake Total 300 1180 2350 1040 Output Total 2200 1500 2500 580 Balance -1900 -320 -150 460 Weight 205 lb General: sitting in bed in no acute distress Abdomen:soft, obese, NT Extremities: no tremors or edema Active Medications Artificial Tears (Artificial Tears) 1 drop OU Q12H PRN PRN Reason: HYGEINE Last Admin: 07/11/18 21:45 Dose: 1 drop Insulin Aspart (Novolog Vial Sliding Scale -) 1 vial SQ ACHS [facility]; Protocol Last Admin: 07/13/18 12:04 Dose: 2 units Pantoprazole Sodium (Protonix -) 40 mg PO BID [facility] Last Admin: 07/13/18 09:40 Dose: 40 mg Sucralfate (Carafate Oral Suspension -) 1 gm PO QID [facility] Last Admin: 07/13/18 14:49 Dose: 1 gm Laboratory Results - last 24 hr 07/12/18 07/12/18 07/13/18 16:57 22:48 06:00 WBC 4.4 RBC 2.57 L Hgb 8.6 L Hct 25.6 L MCV 99.6 H MCH 33.4 MCHC 33.5 RDW 13.4 Plt Count 175 MPV 8.1 Sodium Potassium Chloride Carbon Dioxide Anion Gap BUN Creatinine Creat Clearance w eGFR POC Glucometer 195 162 Random Glucose Calcium Total Bilirubin AST ALT Alkaline Phosphatase Total Protein Albumin 07/13/18 07/13/18 07/13/18 06:00 06:26 11:46 WBC RBC Hgb Hct MCV MCH MCHC RDW Plt Count MPV Sodium 143 Potassium 4.0 Chloride 106 Carbon Dioxide 28 Anion Gap 9 BUN 8 Creatinine 0.7 Creat Clearance w eGFR > 60 POC Glucometer 147 184 Random Glucose 130 H Calcium 8.3 L Total Bilirubin 2.4 H AST 107 H D ALT 167 H D Alkaline Phosphatase 225 H D Total Protein 5.6 L Albumin 2.5 L 07/13/18 12:11 WBC 4.6 RBC 2.69 L Hgb 8.8 L Hct 26.9 L MCV 100.2 H MCH 32.8 MCHC 32.7 RDW 13.1 Plt Count 187 MPV 8.1 Sodium Potassium Chloride Carbon Dioxide Anion Gap BUN Creatinine Creat Clearance w eGFR POC Glucometer Random Glucose Calcium Total Bilirubin AST ALT Alkaline Phosphatase Total Protein Albumin EGD Surgical pathology reprort, chronic duodenitis, gastric intestinal metaplasia, H. pylori neg ASSESSMENT AND PLAN: 47yo M with PMH continuous ETOH abuse and suspected cirrhosis [facility]. On arrival to the ER he was found to have Hgb of 11 and melena -Acute blood loss anemia -Severe ulcerative esophagitis -Near syncope, likely from GI bleed/anemia -Hypotension, hypovolumia/GI bleed, overall improved now -Acute alcoholic hepatitis -ETOH dependence -Thrombocytopenia, suspect ETOH related bone marrow suppression+/- splenic sequestration -NIDDM Plan: s/p 1 unit PRBC 07/11, h/h seems plateaued. (6.8 -> 9.4 likely inappropriate rise initially), now stable. No dark stools, dizziness or hemodynamic instability. EGD biopsy results noted. Gastric intestinal metaplasia, H/ pylori neg. Discussed with Dr. Ashraf, EGD in 4 weeks, Protonix/carafate. LFts continue to improve. Discussed with patient on multiple occasions about alcohol cessation and to avoid tylenol/motrin or any other OTC medications without discussion with his PCP. Patient relays understanding and in agreement. Resume metformi, which patient was on in the past. DVTPPX d/c home today with outpatient GI follow up. Plan discussed with patient in detail, all questions answered.
--- NOTE | 2018-07-13 21:42 | DS ---
Physical Exam: SUBJECTIVE: Patient seen and examined at bedside this morning. No acute event overnight. He has no active complaints. OBJECTIVE: Vital Signs Period Temp Pulse Resp BP Sys/Brothers Pulse Ox Last 24 Hr 98.4 F-98.7 F 88-105 17-20 115-145/66-78 96 PHYSICAL EXAM GENERAL: The patient is awake, alert, and fully oriented, in no acute distress. HEAD: Normal with no signs of trauma. EYES: PERRLA, extraocular movements intact, +icteric sclerare, conjunctiva clear. NECK: Trachea midline, full range of motion, supple. LUNGS: Breath sounds equal, clear to auscultation bilaterally. HEART: Regular rate and rhythm, S1, S2 without murmur, rub or gallop. ABDOMEN: Soft, nontender, nondistended, normoactive bowel sounds. EXTREMITIES: 2+ pulses, warm, well-perfused, no edema. NEUROLOGICAL: Cranial nerves II through XII grossly intact. Normal speech, normal gait. PSYCH: Normal mood, normal affect. SKIN: Warm, dry, normal turgor, no rashes or lesions noted. LABS Laboratory Results - last 24 hr 07/12/18 07/13/18 07/13/18 22:48 06:00 06:00 WBC 4.4 RBC 2.57 L Hgb 8.6 L Hct 25.6 L MCV 99.6 H MCH 33.4 MCHC 33.5 RDW 13.4 Plt Count 175 MPV 8.1 Sodium 143 Potassium 4.0 Chloride 106 Carbon Dioxide 28 Anion Gap 9 BUN 8 Creatinine 0.7 Creat Clearance w eGFR > 60 POC Glucometer 162 Random Glucose 130 H Calcium 8.3 L Total Bilirubin 2.4 H AST 107 H D ALT 167 H D Alkaline Phosphatase 225 H D Total Protein 5.6 L Albumin 2.5 L 07/13/18 07/13/18 07/13/18 06:26 11:46 12:11 WBC 4.6 RBC 2.69 L Hgb 8.8 L Hct 26.9 L MCV 100.2 H MCH 32.8 MCHC 32.7 RDW 13.1 Plt Count 187 MPV 8.1 Sodium Potassium Chloride Carbon Dioxide Anion Gap BUN Creatinine Creat Clearance w eGFR POC Glucometer 147 184 Random Glucose Calcium Total Bilirubin AST ALT Alkaline Phosphatase Total Protein Albumin 07/13/18 16:12 WBC RBC Hgb Hct MCV MCH MCHC RDW Plt Count MPV Sodium Potassium Chloride Carbon Dioxide Anion Gap BUN Creatinine Creat Clearance w eGFR POC Glucometer 252 Random Glucose Calcium Total Bilirubin AST ALT Alkaline Phosphatase Total Protein Albumin IMAGING: CXR -no change of an adverse nature other that elevated left hemidiphargm [address] - No evidence of acute intracranial hemorrhage, edema, midline shaft, mass effect, or skull fracture. No CT evidence of acute territorial infarction. Visualized paranasal sinuses, mastoid air cells are not opacified. Liver Ultrasound - Hepatomegaly and diffuse fatty infiltration liver. Thick- walled gallbladder without evidence of cholelithiasis that most likely is related to hepatocellular disease and not intrinsic gallbladder pathology. Clinical correlation and follow up recommeded. Abdomen Ultrasound - Borderline to mild splenomegaly with a homogenous echotexture. Normal hepatopedal venous flow in the main portal vein and its bifurcation. Normal venous flow in the main portal vein and its bifurcation. HOSPITAL COURSE: Date of Admission:07/09/18 Date of Discharge: 07/13/18 Patient is a 47 year old with past medical history of EtOH dependence, GERD, and DM Type 2 (controlled with diet), was sent in from detox for apparent syncopal episode. Patient reported after walking a few laps, he returned to his room he felt extremely warm and was profusely sweating. He went to use the restroom, became dizzy and fell to the floor. Patient states he remembered the whole incident and did not lose consciousness and was not confused or altered. After his fall, he ate a bowl of cereal, yogurt, meat with potatoes and afterwards, had one episode of NBNB emesis yesterday. Patient also reported passage of black tarry stools for the past 2 days. In addition, he was prescribed Motrin which he started taking 3 days ago due to back pain. Patient has been in detox in the last couple of days, and denies having any alcohol withdrawals or any seizures. He reports being an alcoholic since he was a teenager. He denies chest pain, SOB, nausea, diarrhea, abdominal pain. Patient was admitted because he was noted to be anemic, with positive stool occult blood. GI was consulted. EGD with biopsy was done and revealed esophagitis and ulcerations in the distal esophagus. Patient was placed on soft diet and started on protonix 40 mg for 4 weeks and liquid carfarate for 15 days. Patient's hemoglobin continued to trend down and with hgb 6.8, he received 1 unit pRBC, and since then hgb has been stable. EGD biopsy results gastric intestinal metaplasia. Patient had no more episodes of dark stools, dizziness or hemodynamic instability. He was discharged on instructions to follow-up with PCP and GI for EGD/colonoscopy and counseled on multiple occasions about alcohol cessation. Minutes to complete discharge: 45 <Felipa Sebastian - Last Filed: 07/14/18 11:10> Discharge Summary Reason For Visit: ANEMIA, ALCOHOL HEPATITIS, JAUNDICE, - Home Medications Comprehensive Discharge Medication List: Ambulatory Orders Pantoprazole Sodium [Protonix -] 40 mg PO BID 26 Days #52 tablet.ec 07/13/18 Sucralfate Oral Suspension [Carafate Oral Suspension -] 1 gm PO QID 13 Days #52 ml 07/13/18 metFORMIN HCL [Metformin HCl] 500 mg PO BID #60 tablet 07/13/18 <Felipa Sebastian - Last Filed: 07/14/18 11:10> Hospital Course: Patient also had abnormal LFTs with bilirubin 8.1 on admission and transaminitis , likely from acute alcoholic hepatitis. He had Liver ultrasound with no concerns. He finished his detox inhouse, no concerns for alcohol withdrawal were noted. His LFTs continued to trend down with no abdominal concerns and he is advised outpatient hepatology follow up. His viral hepatitis panel was negative. <Triston Daniel - Last Filed: 07/14/18 12:30> Condition: Stable - Instructions Diet, Activity, Other Instructions: You came in because you were having dizziness and you fell. You also reported you have been passing black colored stools. You were found with ulcerative esophagitis. YOur EGD biospy results are available and show 'stomach intestinal metaplasia' YOU WILL NEED FOLLOW UP EGD (ENDOSCOPY) IN 4 WEEKS. PLEASE MAKE SURE YOU CALL DR ASHRAF'S OFFICE ON DISCHARGE TO SCHEDULE FOLLOW UP IN 1 WEEK. DO NOT TAKE NSAIDS, IBUPROFEN, MOTRIN OR ANY OTHER MEDICATIONS WITHOUT DISCUSSION WITH YOUR DOCTOR. STRONGLY ADVISE ALCOHOL CESSATION. Also your liver tests have improved but still abnormal. Do not take tylenol or any OTC (Over the Counter) drugs without discussion with your doctor. You were transfused with 1 unit of blood and your blood count went up subsequently. The following medications were started here in the hospital, and you will continue it at home as instructed: 1. Protonix 40 mg twice daily for 4 weeks. 2. Liquid Carafate 1 gm four times a day for 13 days. You were also noted to have elevated blood sugar. You reported to have taken Metformin before. You will start taking Metformin 500mg twice a day. Please notify your doctor if you notice any rash or diarrhea on metformin. You are recommended blood sugar monitoring 2-3 times a day before meals, maintain a diary and follow up with your doctor in 1 week Follow up with your regular doctor in 1 week. Follow Ups: Blood tests CBC (Complete blood count) and LFTs (liver function tests in 1 week ) (you can get it done with your regular doctor). Dr. Ashraf follow up in 1 week EGD in 4 weeks. You will need follow up blood test for liver in 1 week, please discuss with your doctor. Please follow-up with your primary care doctor within 1 week. Call 911 or come to ED if any new dizziness, dark or bloody stools, belly pain, jaundice, or any new concerns noted. . Referrals: Ga Ashraf MD [Staff Physician] - 1 Week Tony Ozuna MD [Primary Care Provider] - Disposition: HOME This patient is new to me today: Yes Date on this admission: 07/14/18 Emergency Visit: Yes ED Registration Date: 07/09/18 Care time: The patient presented to the Emergency Department on the above date and was hospitalized for further evaluation of their emergent condition. Critical Care patient: No - Discharge Referral Referred to [facility] No <Felipa Sebastian - Last Filed: 07/14/18 11:10>
== END 2018-07-13 16:31 | disposition home or self-care (01) | DRG 243 ==
LOC: JER 00:11 → JERBED 03:27 → JICU 11:05 → J5S 07-11 18:38
PROVIDERS: ADMIT Internal Medicine; ATTEND Hospitalist
PROC: 0DD68ZX Extraction of Stomach, Via Natural or Artificial Opening Endoscopic, Diagnostic (ICD-10-PCS; 2018-07-09)
PROC: 0DD98ZX Extraction of Duodenum, Via Natural or Artificial Opening Endoscopic, Diagnostic (ICD-10-PCS; principal; 2018-07-09 11:45)
PROC: 30233N1 Transfusion of Nonautologous Red Blood Cells into Peripheral Vein, Percutaneous Approach (ICD-10-PCS; 2018-07-11)
DX: K22.11 Ulcer of esophagus with bleeding (principal); R55 Syncope and collapse; K70.10 Alcoholic hepatitis without ascites; F10.20 Alcohol dependence, uncomplicated; E83.51 Hypocalcemia; E87.1 Hypo-osmolality and hyponatremia; E11.65 Type 2 diabetes mellitus with hyperglycemia; K21.9 Gastro-esophageal reflux disease without esophagitis; D62 Acute posthemorrhagic anemia; I95.9 Hypotension, unspecified; D69.6 Thrombocytopenia, unspecified; E86.1 Hypovolemia; K76.0 Fatty (change of) liver, not elsewhere classified; R16.0 Hepatomegaly, not elsewhere classified; K31.89 Other diseases of stomach and duodenum; R74.0 Nonspecific elevation of levels of transaminase and lactic acid dehydrogenase [LDH]; D75.9 Disease of blood and blood-forming organs, unspecified; K20.9 Esophagitis, unspecified; K29.50 Unspecified chronic gastritis without bleeding; K29.80 Duodenitis without bleeding
CPT/HCPCS: 36415; 36430; 70450-TC; 71045-TC-FY; 76700-TC; 76705-TC; 80053; 80074; 81003; 82272; 82550; 82553; 82962; 83036; 83605; 83690; 83735; 84100; 84484; 85025; 85027; 85610; 85730; 86850; 86900; 86901; 86922; 88305-TC; 93005; 93010; 99285-25; J7030; P9038; P9058